=== PATIENT | male | born 1930 | race Caucasian/White ===

== ENCOUNTER → 2016-08-15 | Outpatient (CLI) | payer OTHER ==
[~2016-08-15] MED LIST: CEFD1CAP14 PO; CEFD300C2 PO; CHOL2000 PO; CIPR1TAB10 PO; DOCU100C31 PO; DUTA0.5C PO; FERR325T PO; GLIM1TAB2 PO; HYDR-3419 PO; HYDR-5688 PO; LPR25 PO; LRS10 PO; LVQ750 PO; MULT-506 PO; NRN600 PO; NUTR1LIQ PO; NXM/40 PO; POLY335019 PO; RANI150T2 PO; SENN-65 PO; SENN-91 PO; SIMV-151 PO; SULF800T23 PO; TRAM-10 PO; ZNTT/150 PO
--- NOTE | 2016-08-17 10:14 | DIAGNOSTIC IMAGING REPORT ---
LEFT HUMERUS MIN 2 VIEWS CLINICAL HISTORY: PROXIMAL LEFT HUMERUS FRACTURE COMPARISON STUDY: Left shoulder 05/09/2016. FINDINGS: There is again noted a displaced and impacted left humeral neck fracture. This demonstrates up to 9 mm of medial displacement. There is a small amount of bony bridging/callus formation consistent with partial healing. No acute fracture or dislocation within the left humerus. No dislocation. IMPRESSION: No change in alignment of the displaced and impacted left humeral neck fracture. There appears to be partial healing of the fracture. Electronically signed by: Jovon Bullard M.D. 08/17/2016 10:12 AM Dictated Date/Time: 08/15/2016 5:50 PM
== END | disposition home or self-care (01) ==
LOC: C.RDSM 11:00
PROVIDERS: ATTEND Physical Medicine & Rehabilitation Sports Medicine
DX: S42.232A 3-part fracture of surgical neck of left humerus, initial encounter for closed fracture (principal); X58.XXXA Exposure to other specified factors, initial encounter; Z87.81 Personal history of (healed) traumatic fracture

== ENCOUNTER 2016-10-25 18:53 | Emergency (ER) | payer OTHER ==
[~2016-10-25] VITALS: Ht 170.2 cm; Wt 39.0 kg
[~2016-10-25 18:53] MED LIST changes: -CEFD1CAP14 PO; -CEFD300C2 PO; -CHOL2000 PO; -CIPR1TAB10 PO; -DOCU100C31 PO; -DUTA0.5C PO; -HYDR-3419 PO; -LVQ750 PO; -POLY335019 PO; -SENN-65 PO; -SULF800T23 PO; -ZNTT/150 PO
[2016-10-25 18:57] VITALS: TEMP 36.7; Ht 170.2 cm; Wt 39.0 kg
[2016-10-25] MEDS ORDERED: SODIUM CHLORIDE 0.9% 1000ML 500 ML IV STA (21:01)
--- NOTE | 2016-10-25 21:09 | EMERGENCY ROOM VISIT NOTE ---
History Report prepared by Arron: Aydin Callejas Under the Supervision of: Dr. Diony Austin M.D. First contact with patient: 20:55 Chief Complaint: FEVER Stated Complaint: HEADACHE,FEVER,UPSET STOMACH,POSSIBLE UTI,NOAPPETE History of Present Illness The patient is a 85 year old male who presents to the Emergency Room with complaints of a persistent confusion beginning earlier today. Per the patient's aide, he has a history of UTIs in the past. He has intellectual disabilities at baseline. He has had a temperature of 99 today. Earlier, he was incoherent, forgetful, and unable to put together sentences. The patient has not had a cough , and has not recently hit his head or fallen. Source of History: caregiver Onset: earlier today Position: head Quality: other (confusion) Timing: other (persistent) Associated Symptoms: + fevers, No cough Review of Systems See HPI for pertinent positives & negatives. A total of 10 systems reviewed and were otherwise negative. 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,& CEREBRAL INFARCTION W/OUT RES DEFICITS (21) PNA (pneumonia) (22) Proteinuria (23) SBO (small bowel obstruction) (24) Sepsis (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 (26) Vitamin B12 deficiency (non anemic) (27) Vitamin D deficiency Family History Omitted due to advanced age Social History Smoking Status: Never Smoker Alcohol Use: none Drug Use: none Marital Status: single, other Occupation Status: disabled Current/Historical Medications Scheduled Cefdinir (Omnicef), 300 MG PO Q12H Cholecalciferol (Vitamin D3), 1 CAP PO DAILY Docusate Sodium (Docusate Sodium), 1 CAP PO BID Esomeprazole Magnesium (Nexium), 40 MG PO QAM Ferrous Sulfate (Ferrous Sulfate), 325 MG PO 2XWK Gabapentin (Gabapentin), 600 MG PO TID Glimepiride (Glimepiride), 1 MG PO QAM Metoprolol Tartrate (Lopressor), 25 MG PO BID Multivitamin (Multivitamin), 1 TAB PO DAILY Nutritional Supplements (Ensure High Protein), 8 OZ PO DAILY Polyethylene Glycol 3350 (Miralax), 17 GM PO DAILY Ranitidine HCl (Ranitidine HCl), 150 MG PO BID Sennosides-Docusate Sodium (Senna S), 1 TAB PO BID Simvastatin (Simvastatin), 20 MG PO QPM Scheduled PRN Baclofen (Baclofen), 10 MG PO BID PRN for Headache Glimepiride (Glimepiride), 1 TAB PO QAM PRN for BSG >200 Tramadol (Ultram), 50 MG PO BID PRN for Pain Allergies Coded Allergies: No Known Allergies (Verified , 10/25/16) Physical Exam Vital Signs Date Time Temp Pulse Resp B/P Pulse Ox O2 Delivery O2 Flow Rate FiO2 10/25/16 23:03 87 18 108/64 92 10/25/16 22:17 85 10/25/16 22:14 86 14 108/64 98 10/25/16 18:57 36.7 92 18 96/60 95 Room Air Physical Exam GENERAL: Patient is in no acute distress. HEENT: No acute trauma, normocephalic atraumatic, mucous membranes moist, no nasal congestion, no scleral icterus. NECK: No stridor, no adenopathy, no meningismus, trachea is midline. LUNGS: Clear to auscultation bilaterally, no wheeze, no rhonchi, breath sounds equal. HEART: Without murmurs gallops or rubs, regular rate and rhythm. ABDOMEN: Soft, nontender, bowel sounds positive, no hernias, no peritonitis. EXTREMITIES: No cyanosis or edema, full range of motion of all the joints without pain or difficulty. Scratches to the right leg. No signs of cellulitis. NEUROLOGIC: MR noted. Moving all extremities. Awake and alert. SKIN: No rash, no jaundice, no diaphoresis. Medical Decision & Procedures ER Provider Diagnostic Interpretation: Radiology results and stated below per my review and radiologist interpretation: HEAD CT NONCONTRAST Findings: The paranasal sinuses and mastoid air cells are clear. Study again is compromised due to the patient's ability to cooperate as well as patient's general condition. Considerable atrophy as well as an old left cerebral infarct. No acute intracranial hemorrhage. No midline shift. A considerable chronic small vessel change and scattered encephalomalacia throughout. All findings are considered chronic. Impression: Considerable chronic and pre-existing change. No acute process. No change from the prior study. Electronically signed by: Thiago Kramer M.D. 10/25/2016 9:47 PM Dictated Date/Time: 10/25/2016 9:45 PM CHEST ONE VIEW PORTABLE FINDINGS: Emphysematous change. Chronic lateral parenchymal fibrotic change. No acute infiltrate. Diaphragms smooth. Chronic scarring left lateral costophrenic angle. IMPRESSION: Chronic and emphysematous change. Chronic fibrosis. No acute process. Electronically signed by: Thiago Kramer M.D. 10/25/2016 9:24 PM Dictated Date/Time: 10/25/2016 9:23 PM Laboratory Results 10/25/16 20:40 Red Blood Count 4.31, Mean Corpuscular Volume 95.1, Mean Corpuscular Hemoglobin 31.1, Mean Corpuscular Hemoglobin Concent 32.7, Mean Platelet Volume 9.3, Neutrophils (%) (Auto) 56.8, Lymphocytes (%) (Auto) 29.8, Monocytes (%) (Auto) 11.0, Eosinophils (%) (Auto) 1.7, Basophils (%) (Auto) 0.5, Neutrophils # (Auto ) 3.42, Lymphocytes # (Auto) 1.79, Monocytes # (Auto) 0.66, Eosinophils # (Auto ) 0.10, Basophils # (Auto) 0.03 10/25/16 20:40 Test 10/25/16 00:00 10/25/16 20:40 Urine Color YELLOW Urine Appearance TURBID (CLEAR) Urine pH 5.0 (4.5-7.5) Urine Specific Soso 1.013 (1.000-1.030) Urine Protein 2+ (NEG) Urine Glucose (UA) NEG (NEG) Urine Ketones NEG (NEG) Urine Occult Blood 3+ (NEG) Urine Nitrite POS (NEG) Urine Bilirubin NEG (NEG) Urine Urobilinogen NEG (NEG) Urine Leukocyte Esterase LARGE (NEG) Urine WBC (Auto) >30 /hpf (0-5) Urine RBC (Auto) >30 /hpf (0-4) Urine Hyaline Casts (Auto) 1-5 /lpf (0-5) Urine Epithelial Cells (Auto) 5-10 /lpf (0-5) Urine Bacteria (Auto) 4+ (NEG) Urine Crystals CALCIUM OXALATE (NONE Urine Yeast (Auto) (NONE PRSENT) White Blood Count 6.01 K/uL (4.8-10.8) Red Blood Count 4.31 M/uL (4.7-6.1) Hemoglobin 13.4 g/dL (14.0-18.0) Hematocrit 41.0 % (42-52) Mean Corpuscular Volume 95.1 fL (80-100) Mean Corpuscular Hemoglobin 31.1 pg (25-34) Mean Corpuscular Hemoglobin Concent 32.7 g/dl (32-36) Platelet Count 191 K/uL (130-400) Mean Platelet Volume 9.3 fL (7.4-10.4) Neutrophils (%) (Auto) 56.8 % Lymphocytes (%) (Auto) 29.8 % Monocytes (%) (Auto) 11.0 % Eosinophils (%) (Auto) 1.7 % Basophils (%) (Auto) 0.5 % Neutrophils # (Auto) 3.42 K/uL (1.4-6.5) Lymphocytes # (Auto) 1.79 K/uL (1.2-3.4) Monocytes # (Auto) 0.66 K/uL (0.11-0.59) Eosinophils # (Auto) 0.10 K/uL (0-0.5) Basophils # (Auto) 0.03 K/uL (0-0.2) RDW Standard Deviation 48.1 fL (36.4-46.3) RDW Coefficient of Variation 13.8 % (11.5-14.5) Immature Granulocyte % (Auto) 0.2 % Immature Granulocyte # (Auto) 0.01 K/uL (0.00-0.02) Anion Gap 4.0 mmol/L (3-11) Est Creatinine Clear Calc Drug Dose 34.3 ml/min Estimated GFR () 91.2 Estimated GFR (Non- 78.7 BUN/Creatinine Ratio 33.0 (10-20) Calcium Level 9.4 mg/dl (8.5-10.1) Total Bilirubin 0.3 mg/dl (0.2-1) Aspartate Amino Transf (AST/SGOT) 25 U/L (15-37) Alanine Aminotransferase (ALT/SGPT) 27 U/L (12-78) Alkaline Phosphatase 75 U/L (45-117) Total Protein 7.0 gm/dl (6.4-8.2) Albumin 3.0 gm/dl (3.4-5.0) Globulin 4.0 gm/dl (2.5-4.0) Albumin/Globulin Ratio 0.8 (0.9-2) Laboratory results reviewed by me. Medications Administered Medications (Trade) Dose Ordered Sig/Kay Route Start Time Stop Time Status Last Admin Dose Admin Sodium Chloride (Nss 1000ml) 500 ml @ 999 mls/hr Q31M STAT IV 10/25/16 21:01 10/25/16 21:31 DC 10/25/16 21:12 999 MLS/HR Ceftriaxone Sodium (Rocephin Inj) 1 gm NOW STAT IV 10/25/16 22:21 10/25/16 22:22 DC 10/25/16 22:36 1 GM ED Course 2055: The patient was evaluated in room B11B. A complete history and physical exam was performed. 2100: Ordered NSS 500 ml @ 999 mls/hr IV. 2220: Ordered Rocephin Inj 1 gm IV. 2249: I updated the patient. 2304: Reevaluated the patient. Discussed results and discharge instructions: He verbalized understanding and agreement. The patient is ready for discharge. Medical Decision Differentials include UTI, intracranial bleeding or stroke, dehydration, anemia , electrolyte imbalance, pneumonia, and cellulitis. There is no leukocytosis or concerning anemia. No significant electrolyte abnormality, kidney failure or hepatitis. Urinalysis is suggestive of infection , urine culture and blood cultures are pending. Brain CT shows no acute bleed or mass effect. Chest x-ray does not show pneumonia or CHF. On exam, there was no cellulitis. The patient was not febrile or toxic. The patient was given IV saline, he received IV ceftriaxone. He is being discharged on Omnicef twice a day for 10 days, he can return here if worsening or not improving. He does appear to have a UTI as the cause for his symptoms. Impression Primary Impression: UTI (urinary tract infection) Scribe Attestation The scribe's documentation has been prepared under my direction and personally reviewed by me in its entirety. I confirm that the note above accurately reflects all work, treatment, procedures, and medical decision making performed by me. Departure Information Dispostion Home / Self-Care Prescriptions Cefdinir (OMNICEF) 300 Mg Cap 300 MG PO Q12H for 10 Days, #20 CAP Prov: Diony Austin M.D. 10/25/16 Referrals Monika Zabala, C.R.N.P. (PCP) Patient Instructions My [facility] Additional Instructions omnicef 2x per day for 10 days continue all other meds and care return for worsening symptoms or lack of improvement lab testing and imaging was all ok today
[2016-10-25 21:16] LABS: BASO % 0.5 %; BASO ABS # 0.03 K/uL (0-0.2); COMPLETE YES; EOS % 1.7 %; IG% 0.2 %; LYMPH % 29.8 %; LYMPH ABS # 1.79 K/uL (1.2-3.4); MEAN CELL VOLUME 95.1 fL (80-100); MEAN CORPUSCULAR HEMOGLOBIN 31.1 pg (25-34); MEAN CORPUSCULAR HGB CONC 32.7 g/dl (32-36); MEAN PLATELET VOLUME 9.3 fL (7.4-10.4); NEUT % 56.8 %; PLATELET COUNT 191 K/uL (130-400); RED BLOOD COUNT 4.31 M/uL (4.7-6.1); WHITE BLOOD COUNT 6.01 K/uL (4.8-10.8)
--- NOTE | 2016-10-25 21:25 | DIAGNOSTIC IMAGING REPORT ---
CHEST ONE VIEW PORTABLE CLINICAL HISTORY: EVALUATE ALTERED MENTAL STATUS/WEAKNESS dyspnea COMPARISON STUDY: 03/30/2016 FINDINGS: Emphysematous change. Chronic lateral parenchymal fibrotic change. No acute infiltrate. Diaphragms smooth. Chronic scarring left lateral costophrenic angle. IMPRESSION: Chronic and emphysematous change. Chronic fibrosis. No acute process. Electronically signed by: Thiago Kramer M.D. 10/25/2016 9:24 PM Dictated Date/Time: 10/25/2016 9:23 PM
[2016-10-25 21:47] LABS: CALCIUM 9.4 mg/dl (8.5-10.1); CREATININE 0.9 mg/dl (0.60-1.40); POTASSIUM 4.5 mmol/L (3.5-5.1)
--- NOTE | 2016-10-25 21:48 | DIAGNOSTIC IMAGING REPORT ---
HEAD CT NONCONTRAST CT DOSE: 614.27 mGy.cm HISTORY: Mental status change confusion TECHNIQUE: Multiaxial CT images of the head were performed without the use of intravenous contrast. Comparison: 03/27/2016 Findings: The paranasal sinuses and mastoid air cells are clear. Study again is compromised due to the patient's ability to cooperate as well as patient's general condition. Considerable atrophy as well as an old left cerebral infarct. No acute intracranial hemorrhage. No midline shift. A considerable chronic small vessel change and scattered encephalomalacia throughout. All findings are considered chronic. Impression: Considerable chronic and pre-existing change. No acute process. No change from the prior study. Electronically signed by: Thiago Kramer M.D. 10/25/2016 9:47 PM Dictated Date/Time: 10/25/2016 9:45 PM
[2016-10-25 21:50] LABS: ALB/GLOB RATIO 0.8 (0.9-2)
[2016-10-25] MEDS ORDERED: GLIM1TAB2 PO (21:52)
[2016-10-25] MEDS ORDERED: CHOL2000 PO (21:52)
[2016-10-25] MEDS ORDERED: POLY335019 PO (21:52)
[2016-10-25] MEDS ORDERED: DOCU100C31 PO (21:52)
[2016-10-25] MEDS ORDERED: TRAM-10 PO (21:52)
[2016-10-25 22:10] LABS: URINE APPEARANCE TURBID (CLEAR); URINE BILIRUBIN NEG (NEG); URINE COLOR YELLOW; URINE NITRITE POS (NEG); URINE SPECIFIC GRAVITY 1.013 (1.000-1.030); UROBILINOGEN NEG (NEG); ZZURINE CULT IF INDIC CATH YES
[2016-10-25 22:13] LABS: MANUAL MICROSCOPIC REQUIRED? NO; REVIEW REQ? YES
[2016-10-25] MEDS ORDERED: CEFTRIAXONE SOD INJ 1 GM ADDVIAL IV STA (22:21)
[2016-10-25] MEDS ORDERED: CEFD300C2 PO (22:54)
[2016-10-25 23:03] VITALS: BP 108/64; PULSE 87; O2SAT 92
[2016-10-27] MEDS ORDERED: CEFD1CAP14 PO (13:22)
[2016-10-27] MEDS ORDERED: DUTA0.5C PO (13:22)
[2016-10-27] MEDS ORDERED: CHOL2000 PO (13:22)
[2016-11-29] MEDS ORDERED: TRAM-10 PO (12:03)
[2016-11-29] MEDS ORDERED: LVQ750 PO (12:03)
[2017-01-15] MEDS ORDERED: CIPR1TAB10 PO (10:29)
[2017-01-18] MEDS ORDERED: HYDR-3419 PO (09:40)
== END 2016-10-25 22:58 | disposition home or self-care (01) ==
LOC: C.EDB 18:55
DX: N39.0 Urinary tract infection, site not specified (principal); F79 Unspecified intellectual disabilities; D64.9 Anemia, unspecified; I48.91 Unspecified atrial fibrillation; E11.43 Type 2 diabetes mellitus with diabetic autonomic (poly)neuropathy; E78.5 Hyperlipidemia, unspecified; I10 Essential (primary) hypertension; K21.9 Gastro-esophageal reflux disease without esophagitis; Z86.73 Personal history of transient ischemic attack (TIA), and cerebral infarction without residual deficits; Z87.01 Personal history of pneumonia (recurrent); E53.8 Deficiency of other specified B group vitamins; E55.9 Vitamin D deficiency, unspecified; Z79.899 Other long term (current) drug therapy

== ENCOUNTER → 2016-11-15 | Outpatient (CLI) | payer OTHER ==
[~2016-11-15] MED LIST changes: +CEFD1CAP14 PO; +CHOL2000 PO; +CIPR1TAB10 PO; +DUTA0.5C PO; +FERR1TAB62 PO; -FERR325T PO; +HYDR-3419 PO; -HYDR-5688 PO; +LVQ750 PO; +POLY335019 PO; -RANI150T2 PO; +SULF800T23 PO; +ZNTT/150 PO
[2016-11-15 13:15] LABS: BASO % 0.4 %; BASO ABS # 0.03 K/uL (0-0.2); COMPLETE YES; EOS % 2.6 %; HEMATOCRIT 44.5 % (42-52); IG% 0.1 %; LYMPH % 20.4 %; LYMPH ABS # 1.44 K/uL (1.2-3.4); MEAN CELL VOLUME 99.6 fL (80-100); MEAN CORPUSCULAR HEMOGLOBIN 30.9 pg (25-34); MEAN PLATELET VOLUME 9.3 fL (7.4-10.4); MONO % 9.1 %; NEUT % 67.4 %; PLATELET COUNT 186 K/uL (130-400); RED BLOOD COUNT 4.47 M/uL (4.7-6.1); WHITE BLOOD COUNT 7.05 K/uL (4.8-10.8)
[2016-11-15 14:57] LABS: BLOOD UREA NITROGEN 25 mg/dl (7-18); BUN/CREATININE RATIO 24.5 (10-20); CALCIUM 9.3 mg/dl (8.5-10.1); CARBON DIOXIDE 27 mmol/L (21-32); CHLORIDE 106 mmol/L (98-107); GLUCOSE 132 mg/dl (70-99); POTASSIUM 4.2 mmol/L (3.5-5.1); SODIUM 142 mmol/L (136-145)
== END | disposition home or self-care (01) ==
LOC: C.LAB 12:07
PROVIDERS: ATTEND Urology
DX: N40.1 Benign prostatic hyperplasia with lower urinary tract symptoms (principal)

== ENCOUNTER 2016-11-26 12:57 | Inpatient (IN) | payer OTHER ==
[~2016-11-26] VITALS: Ht 160 cm; Wt 39.0 kg
[~2016-11-26 12:57] MED LIST changes: -CIPR1TAB10 PO; -HYDR-3419 PO; -LVQ750 PO; -SULF800T23 PO; -ZNTT/150 PO
[2016-11-26] MEDS ORDERED: ZNTT/150 PO (13:23)
[2016-11-26] MEDS ORDERED: SULF800T23 PO (13:23)
[2016-11-26] MEDS ORDERED: SODIUM CHLORIDE 0.9% 1000ML 1,000 ML IV SCH (14:06)
--- NOTE | 2016-11-26 14:10 | EMERGENCY ROOM VISIT NOTE ---
History Report prepared by Arron: Aydin Callejas Under the Supervision of: Dr. Pau Olivarez D.O. First contact with patient: 13:50 Chief Complaint: CONFUSION Stated Complaint: ALTERED MENTAL STATUS Nursing Triage Summary: arrives via ems with caregiver, who states that this morning after pentecostalism he "wasn't acting right", seemed "really weak and was twitching and tremoring" pt. resides in a special needs home through [facility] and has baseline MR but usually walks with a cane and has normal "every day conversation" History of Present Illness The patient is a 86 year old male who presents to the Emergency Room with complaints of persistent confusion beginning about 2 hours ago. Per the patient' s caregiver, he was out [facility] after pentecostalism when he started to not make sense , was "acting off", began shaking, and seemed weak. He had been walking with a cane this morning, which is baseline, but later was unable to stand unassisted. The patient is a diabetic and his blood sugar was 170 in the ambulance. He developed a new cough this morning The patient has a catheter and frequently gets UTIs. He is currently on Bactrim for a UTI. She reports that his sticking his tongue out is normal, but he usually makes more eye contact at baseline compared to now. The patient does not keep up with his fluids and may be dehydrated. He consumes sugar products often, and normally eats without any problems. The patient denies any pain. Source of History: patient, caregiver Onset: about 2 hours ago Position: head Quality: other (confusion) Timing: other (persistent) Associated Symptoms: + cough, + weakness Review of Systems See HPI for pertinent positives & negatives. A total of 10 systems reviewed and were otherwise negative. Past Medical & Surgical Medical Problems: (1) ABDOM AORTIC ANEURYSM (2) Altered mental status (3) Anemia (4) ATRIAL FIBRILLATION (5) Benign hypertension (6) Bronchiectasis (7) Carotid artery stenosis (8) Degeneration of cervical intervertebral disc (9) DIAB W NEURO MANIFEST, TYPE II OR UNSPEC TYPE, NOT UNCNTRLD (10) Diabetic peripheral neuropathy (11) Dyslipidemia (12) Dysphagia (13) FX C2 VERTEBRA-CLOSED (14) FX C5 VERTEBRA-CLOSED (15) FX C6 VERTEBRA-CLOSED (16) Gastroesophageal reflux disease (17) Helicobacter pylori gastrointestinal tract infection (18) Influenza A (19) Inguinal hernia (20) Peptic ulcer (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,& CEREBRAL INFARCTION W/OUT RES DEFICITS (22) PNA (pneumonia) (23) Proteinuria (24) SBO (small bowel obstruction) (25) Sepsis (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 (27) Vitamin B12 deficiency (non anemic) (28) Vitamin D deficiency Family History Omitted due to advanced age Social History Smoking Status: Never Smoker Alcohol Use: none Drug Use: none Marital Status: single, other Occupation Status: disabled Current/Historical Medications Scheduled Cholecalciferol (Vitamin D3), 1 CAP PO DAILY Esomeprazole Magnesium (Nexium), 40 MG PO QAM Gabapentin (Gabapentin), 600 MG PO TID Glimepiride (Glimepiride), 1 MG PO QAM Metoprolol Tartrate (Lopressor), 25 MG PO BID Multivitamin (Multivitamin), 1 TAB PO QAM Nutritional Supplements (Ensure High Protein), 8 OZ PO DAILY Polyethylene Glycol 3350 (Miralax), 17 GM PO QAM Ranitidine (Zantac), 150 MG PO BID Sennosides-Docusate Sodium (Senna S), 1 TAB PO BID Simvastatin (Simvastatin), 20 MG PO QPM Sulfa/Trimethoprim (Bactrim Ds 800MG/160MG), 1 TAB PO BID Scheduled PRN Baclofen (Baclofen), 10 MG PO BID PRN for Headache Glimepiride (Glimepiride), 1 TAB PO QAM PRN for BSG >200 Tramadol (Ultram), 50 MG PO BID PRN for Pain Allergies Coded Allergies: No Known Allergies (Verified , 11/26/16) Physical Exam Vital Signs Date Time Temp Pulse Resp B/P Pulse Ox O2 Delivery O2 Flow Rate FiO2 11/26/16 17:03 97 16 115/53 94 Room Air 11/26/16 15:24 85 16 118/58 93 Room Air 11/26/16 14:53 87 103/59 90 Room Air 11/26/16 14:36 91 Room Air 11/26/16 14:07 88 11/26/16 13:24 94 Room Air 11/26/16 13:06 37.0 86 14 125/60 90 Room Air Physical Exam General: Patient was asleep, difficult to wake, and confused upon waking. He has a wet cough, and strong odor of foul smelling urine. HEENT: Head - normocephalic and atraumatic. Pupils are equal, round, and reactive to light. Extraocular eye muscles are intact and sclera are anicteric. Ears - bilaterally patent canals with noninjected tympanic membranes and no evidence of hemotympanum. Nose - moist nasal mucosa without discharge. Mouth - moist buccal mucosa. Oropharynx is nonerythematous and there is no tonsillar exudate or edema noted. Neck: Significant curvature to the neck and upper back. Supple; no JVD, nuchal rigidity, cervical lymphadenopathy, or auscultated bruits. Heart: Regular rate and rhythm. There is a normal S1 and S2 with no murmurs, clicks, or gallops appreciated. Lungs: Diminished breath sounds in both lung bases. Abdomen: Soft, completely nontender, nondistended, with good bowel sounds. There are no palpable pulsatile masses or hepatosplenomegaly. There is no guarding, rigidity, or rebound noted. Extremities: No evidence of cyanosis, clubbing, or edema. There are easily palpable peripheral pulses. Neuro:The patient is awake and alert, but disoriented to place and time. Muscle strength is 5/5 in all 4 extremities. The patient has equal inside sales advertising executive strength and equal pedal push and pull. There are no cerebellar signs. Medical Decision & Procedures ER Provider Diagnostic Interpretation: Radiology results as stated below per my review and the radiologist's interpretation: CT OF THE HEAD WITHOUT CONTRAST FINDINGS: Evaluation is suboptimal due to difficulty with positioning. Encephalomalacia within the left frontoparietal region is unchanged. Ventricular system is stable. Basilar cisterns are patent. There are no extra axial collections. Scattered white matter hypodensities are unchanged. There are no CT findings to suggest acute dural sinus thrombosis or acute territorial infarct. Note is made of an indeterminate defect with lucency of the left parietal bone. This was described on exam of March 27, 2016. IMPRESSION: 1. Technically limited exam due to difficulty with positioning. 2. No acute intracranial findings. No significant change since prior exam. 3. Redemonstration of the indeterminate left parietal lucent/lytic lesion with apparent scalp defect. Electronically signed by: Navarro Curry M.D. 11/26/2016 3:20 PM Dictated Date/Time: 11/26/2016 3:12 PM CHEST ONE VIEW PORTABLE FINDINGS: Deformity of the proximal left humerus is identified. Cardiomediastinal silhouette is stable. Left lung volume loss is again noted. There is no pneumothorax or pleural effusion. Interstitial thickening is unchanged and likely chronic. Left basilar opacity has developed. IMPRESSION: 1. Interval development of left basilar opacity which could reflect pneumonia or atelectasis. Radiographic follow up is recommended. 2. Otherwise, unchanged appearance of the chest with chronic interstitial thickening. Electronically signed by: Navarro Curry M.D. 11/26/2016 2:42 PM Dictated Date/Time: 11/26/2016 2:39 PM Laboratory Results 11/26/16 14:41 Test 11/26/16 14:41 11/26/16 14:51 11/26/16 16:35 Immature Granulocyte % (Auto) 0.2 % White Blood Count 13.34 K/uL (4.8-10.8) Red Blood Count 4.21 M/uL (4.7-6.1) Hemoglobin 13.6 g/dL (14.0-18.0) Hematocrit 40.9 % (42-52) Mean Corpuscular Volume 97.1 fL (80-100) Mean Corpuscular Hemoglobin 32.3 pg (25-34) Mean Corpuscular Hemoglobin Concent 33.3 g/dl (32-36) Platelet Count 156 K/uL (130-400) Mean Platelet Volume 9.4 fL (7.4-10.4) Neutrophils (%) (Auto) 84.4 % Lymphocytes (%) (Auto) 4.6 % Monocytes (%) (Auto) 10.6 % Eosinophils (%) (Auto) 0.1 % Basophils (%) (Auto) 0.1 % Neutrophils # (Auto) 11.27 K/uL (1.4-6.5) Lymphocytes # (Auto) 0.61 K/uL (1.2-3.4) Monocytes # (Auto) 1.41 K/uL (0.11-0.59) Eosinophils # (Auto) 0.01 K/uL (0-0.5) Basophils # (Auto) 0.01 K/uL (0-0.2) Immature Granulocyte # (Auto) 0.03 K/uL (0.00-0.02) Prothrombin Time 10.2 SECONDS (9.0-12.0) Prothromb Time International Ratio 1.0 (0.9-1.1) Activated Partial Thromboplast Time 24.6 SECONDS (21.0-31.0) Partial Thromboplastin Ratio 0.9 Anion Gap 7.0 mmol/L (3-11) Est Creatinine Clear Calc Drug Dose 23.3 ml/min Estimated GFR () 58.1 Estimated GFR (Non- 50.1 BUN/Creatinine Ratio 23.3 (10-20) Calcium Level 9.1 mg/dl (8.5-10.1) Total Creatine Kinase 61 U/L (39-308) Creatine Kinase MB 0.9 ng/ml (0.5-3.6) Creatine Kinase MB Ratio 1.5 (0-3.0) Troponin I < 0.015 ng/ml (0-0.045) Bedside Prothrombin Time INR 1.0 (0.9-1.1) Urine Color DK YELLOW Urine Appearance TURBID (CLEAR) Urine pH 5.5 (4.5-7.5) Urine Specific [place] 1.019 (1.000-1.030) Urine Protein 2+ (NEG) Urine Glucose (UA) NEG (NEG) Urine Ketones NEG (NEG) Urine Occult Blood 2+ (NEG) Urine Nitrite POS (NEG) Urine Bilirubin NEG (NEG) Urine Urobilinogen NEG (NEG) Urine Leukocyte Esterase LARGE (NEG) Urine WBC (Auto) >30 /hpf (0-5) Urine RBC (Auto) 10-30 /hpf (0-4) Urine Hyaline Casts (Auto) 1-5 /lpf (0-5) Urine Epithelial Cells (Auto) 10-20 /lpf (0-5) Urine Bacteria (Auto) NEG (NEG) Urine Crystals TRIPLE PHOSPHATE Urine Yeast (Auto) BUDDING (NONE PRSENT) Laboratory results per my review. Medications Administered Medications (Trade) Dose Ordered Sig/Kay Route Start Time Stop Time Status Last Admin Dose Admin Sodium Chloride 1,000 ml @ 50 mls/hr Q20H IV 11/26/16 14:06 11/26/16 18:42 DC 11/26/16 14:06 50 MLS/HR Sodium Chloride (Nss 1000ml) 1,000 ml @ 250 mls/hr Q4H STAT IV 11/26/16 15:23 11/26/16 18:42 DC 4/30/17 15:32 250 MLS/HR Levofloxacin (Levaquin / D5W) 750 mg NOW ONCE IV 11/26/16 15:45 11/26/16 15:46 DC 11/26/16 15:48 750 MG Gabapentin (Neurontin Tab) 600 mg NOW STAT PO 11/26/16 15:45 11/26/16 15:46 DC 11/26/16 16:06 600 MG Procedure Medications Ordered: 1406: Ordered NSS 1,000 ml @ 50 mls/hr IV. 1523: Ordered NSS 1,000 ml @ 50 mls/hr IV. IV Levaquin Oral gabapentin ECG Indication: other (confusion) Rate (beats per minute): 86 Rhythm: normal sinus Findings: no acute ischemic change, no ectopy ED Course 1400: Past medical records reviewed. The patient was evaluated in room C2B. A complete history and physical exam was performed. An IV lock was initiated and labs were drawn as above. A twelve-lead EKG was obtained as described above. The patient had a CT scan of the brain. He will go for a chest x-ray. 1406: Ordered NSS bolus and drip. I ordered the patient's daily gabapentin as he had missed his dose. 1525: I reassessed the patient. He seems slightly more awake. We will start him on IV Levaquin for the new left-sided pneumonia. The caregiver does not feel comfortable to take him back to the [facility] because of his inability to ambulate. 1530: Discussed the patient's case with Dr. Engilsh. The patient will be evaluated for further management. The urine specimen was finally obtained from the cath and sent for urinalysis and culture. Medical Decision The patient is a 86 year old male who presents to the Emergency Room with complaints of persistent confusion beginning about 2 hours ago. Differential Diagnoses: Acute stroke, hypoglycemia, UTI, sepsis, pneumonia, and hypoxia. Laboratory Interpretations: WBC is 13.3; hemoglobin is 13.6; 84% neutrophils; BUN is 30; creatinine is 1.3; glucose is 68; negative cardiac enzymes; normal coags. On physical exam, the patient was slowly disoriented. He did seem to have significant wet cough. There was a significant odor of strong smelling urine. Chest x-ray revealed evidence of a left-sided pneumonia and urinalysis reveals a urinary tract infection despite the patient being on Bactrim. The urine will be sent for culture. The patient was started on IV Levaquin. I discussed the case with the [facility] hospitalist and they will evaluate for further management. Consults Time Called: 1524 Consulting Physician: [place], [facility] [place] Call: [phone] Discussed the patient's case with Dr. English. The patient will be evaluated for further management. Impression Primary Impression: Pneumonia involving left lung Additional Impression: Dehydration Scribe Attestation The scribe's documentation has been prepared under my direction and personally reviewed by me in its entirety. I confirm that the note above accurately reflects all work, treatment, procedures, and medical decision making performed by me. Departure Information Dispostion Being Evaluated By Hospitalist Referrals Monika Zabala, C.R.N.P. (PCP) Patient Instructions My [facility] Problem Qualifiers
--- NOTE | 2016-11-26 14:43 | DIAGNOSTIC IMAGING REPORT ---
CHEST ONE VIEW PORTABLE CLINICAL HISTORY: Stroke. COMPARISON STUDY: Chest radiograph October 25, 2016. FINDINGS: Deformity of the proximal left humerus is identified. Cardiomediastinal silhouette is stable. Left lung volume loss is again noted. There is no pneumothorax or pleural effusion. Interstitial thickening is unchanged and likely chronic. Left basilar opacity has developed. IMPRESSION: 1. Interval development of left basilar opacity which could reflect pneumonia or atelectasis. Radiographic follow up is recommended. 2. Otherwise, unchanged appearance of the chest with chronic interstitial thickening. Electronically signed by: Navarro Curry M.D. 11/26/2016 2:42 PM Dictated Date/Time: 11/26/2016 2:39 PM
[2016-11-26 15:02] LABS: BASO % 0.1 %; BASO ABS # 0.01 K/uL (0-0.2); COMPLETE YES; EOS % 0.1 %; HEMATOCRIT 40.9 % (42-52); IG% 0.2 %; LYMPH % 4.6 %; LYMPH ABS # 0.61 K/uL (1.2-3.4); MEAN CELL VOLUME 97.1 fL (80-100); MEAN CORPUSCULAR HEMOGLOBIN 32.3 pg (25-34); MEAN CORPUSCULAR HGB CONC 33.3 g/dl (32-36); MEAN PLATELET VOLUME 9.4 fL (7.4-10.4); MONO % 10.6 %; NEUT % 84.4 %; PLATELET COUNT 156 K/uL (130-400); RED BLOOD COUNT 4.21 M/uL (4.7-6.1); WHITE BLOOD COUNT 13.34 K/uL (4.8-10.8)
[2016-11-26 15:10] LABS: PARTIAL THROMBOPLASTIN RATIO 0.9; PROTHROMBIN TIME (PATIENT) 10.2 SECONDS (9.0-12.0)
[2016-11-26 15:19] LABS: BLOOD UREA NITROGEN 30 mg/dl (7-18); BUN/CREATININE RATIO 23.3 (10-20); CALCIUM 9.1 mg/dl (8.5-10.1); CARBON DIOXIDE 29 mmol/L (21-32); CHLORIDE 103 mmol/L (98-107); GLUCOSE 68 mg/dl (70-99); POTASSIUM 4.9 mmol/L (3.5-5.1); SODIUM 139 mmol/L (136-145)
--- NOTE | 2016-11-26 15:21 | DIAGNOSTIC IMAGING REPORT ---
CT OF THE HEAD WITHOUT CONTRAST CLINICAL HISTORY: Confusion, weakness and tremors. Evaluate for stroke. COMPARISON STUDY: Head CT October 25, 2016. CT DOSE: 614.27 mGy.cm TECHNIQUE: Helical axial images of the head were obtained without IV contrast. Automated exposure control was utilized for the study. FINDINGS: Evaluation is suboptimal due to difficulty with positioning. Encephalomalacia within the left frontoparietal region is unchanged. Ventricular system is stable. Basilar cisterns are patent. There are no extra axial collections. Scattered white matter hypodensities are unchanged. There are no CT findings to suggest acute dural sinus thrombosis or acute territorial infarct. Note is made of an indeterminate defect with lucency of the left parietal bone. This was described on exam of March 27, 2016. IMPRESSION: 1. Technically limited exam due to difficulty with positioning. 2. No acute intracranial findings. No significant change since prior exam. 3. Redemonstration of the indeterminate left parietal lucent/lytic lesion with apparent scalp defect. Electronically signed by: Navarro Curry M.D. 11/26/2016 3:20 PM Dictated Date/Time: 11/26/2016 3:12 PM
[2016-11-26 15:23] LABS: CKMB/CK RATIO 1.5 (0-3.0)
[2016-11-26] MEDS ORDERED: SODIUM CHLORIDE 0.9% 1000ML 1,000 ML IV STA (15:23)
[2016-11-26] MEDS ORDERED: LEVAQUIN 750MG / 150ML D5W IV ONE (15:45)
[2016-11-26] MEDS ORDERED: GABAPENTIN 600 MG TAB PO STA (15:45)
[2016-11-26 17:08] LABS: URINE APPEARANCE TURBID (CLEAR); URINE BILIRUBIN NEG (NEG); URINE COLOR DK YELLOW; URINE NITRITE POS (NEG); URINE PH 5.5 (4.5-7.5); URINE SPECIFIC GRAVITY 1.019 (1.000-1.030); UROBILINOGEN NEG (NEG); ZZURINE CULT IF INDIC CATH YES
[2016-11-26 17:11] LABS: MANUAL MICROSCOPIC REQUIRED? NO; REVIEW REQ? YES
[2016-11-26] MEDS ORDERED: GLUCAGON FOR INJ 1 MG VIAL SQ PRN (17:45)
[2016-11-26] MEDS ORDERED: LEVOFLOXACIN / D5W 500 MG in PREMIXED IN D5W 100 ML IV SCH (17:45)
[2016-11-26] MEDS ORDERED: GLUCOSE 40% GEL 15 GM TUBE PO PRN (17:45)
[2016-11-26] MEDS ORDERED: DEXTROSE 50% 50 ML SYR IV PRN (17:45)
[2016-11-26] MEDS ORDERED: ACETAMINOPHEN 325 MG TAB PO PRN (17:45)
[2016-11-26] MEDS ORDERED: BACLOFEN 10 MG TAB PO PRN (17:45)
[2016-11-26] MEDS ORDERED: MAGNESIUM HYDROXIDE SUSP 30 ML UDC PO PRN (17:45)
[2016-11-26] MEDS ORDERED: TRAMADOL HCL 50 MG TAB PO PRN (17:45)
[2016-11-26] MEDS ORDERED: ONDANSETRON INJ 2 MG/ML 2 ML VIAL IV PRN (17:45)
[2016-11-26] MEDS ORDERED: GLUCOSE 10 TABS/TUBE PO PRN (17:45)
[2016-11-26] MEDS ORDERED: GLIMEPIRIDE 2 MG TAB PO PRN (17:45)
--- NOTE | 2016-11-26 18:01 | History and Physical ---
History & Physical Date & Time of Service: Nov 26, 2016 at 17:45 Chief Complaint: Altered Mental Status Primary Care Physician: Monika Zabala, C.R.N.PDariusz History of Present Illness Source: patient, caregiver 86 y/o M who was brought here by his caregiver for AMS and weakness. Pt has some sort of MR, but lives fairly independently at the [facility]. Caregiver present in the ED has been taking care of pt since July, but had been off for the last 3 days. She states that there was no report from yesterday's caregiver of any sort of AMS or weakness at that time. She states she was getting pt ready for [facility] and he seemed weaker and with AMS. He usually ambulates with a cane, but he was unable to do so at all. She was initially going to bring pt here in her own car, but could not manage him well enough as he was so weak so she had to call EMS. His baseline mentation is quite conversant although he may pause a bit for words. He is usually A&O x3. He has dysphagia listed on his dx list, however the unclaimed property manager states she is uncertain as to what that is regarding and he eats a regular diet without restrictions. Pt currently states he feels fine. No SOB. Pt denies fever, chest pain, abd pain, n/v/c/d, LE pain or swelling. ROS as noted above, otherwise neg. Pt currently has a catheter in place due to severe BPH. He was to have a TURP tomorrow with Dr. Barnard. Past Medical/Surgical History Medical Problems: (1) ABDOM AORTIC ANEURYSM Status: Chronic (2) Anemia Status: Chronic (3) ATRIAL FIBRILLATION Status: Chronic (4) Benign hypertension Status: Chronic (5) Bronchiectasis Status: Chronic (6) Carotid artery stenosis Status: Chronic (7) Degeneration of cervical intervertebral disc Status: Chronic (8) DIAB W NEURO MANIFEST, TYPE II OR UNSPEC TYPE, NOT UNCNTRLD Status: Chronic (9) Diabetic peripheral neuropathy Status: Chronic (10) Dyslipidemia Status: Chronic (11) Dysphagia Status: Chronic (12) FX C2 VERTEBRA-CLOSED Status: Resolved (13) FX C5 VERTEBRA-CLOSED Status: Resolved (14) FX C6 VERTEBRA-CLOSED Status: Resolved (15) Gastroesophageal reflux disease Status: Chronic (16) Helicobacter pylori gastrointestinal tract infection Status: Chronic (17) Influenza A Status: Resolved (18) Inguinal hernia Status: Chronic (19) Peptic ulcer Status: Chronic (20) PERSONAL HX OF TIA,& CEREBRAL INFARCTION W/OUT RES DEFICITS Status: Resolved (21) Proteinuria Status: Chronic (22) SBO (small bowel obstruction) Status: Resolved (23) Sepsis Status: Resolved (24) Spasmodic torticollis Status: Chronic (25) Vitamin B12 deficiency (non anemic) Status: Chronic (26) Vitamin D deficiency Status: Chronic Urinary catheter in place on admission for severe BPH MR Family History Family history was reviewed; no changes noted. Social History Smoking Status: Never Smoker Alcohol Use: none Drug Use: none Marital Status: single, other Housing status: assisted living Occupational Status: disabled Immunizations History of Influenza Vaccine: Yes Influenza Vaccine Date: Jun 03, 2012 History of Tetanus Vaccine?: Unknown History of Pneumococcal: Yes History of Hepatitis B Vaccine: Unknown Multi-Drug Resistant Organisms History of MDRO: No Allergies Coded Allergies: No Known Allergies (Verified , 11/26/16) Home Medications Scheduled Cholecalciferol (Vitamin D3), 1 CAP PO DAILY Esomeprazole Magnesium (Nexium), 40 MG PO QAM Gabapentin (Gabapentin), 600 MG PO TID Glimepiride (Glimepiride), 1 MG PO QAM Metoprolol Tartrate (Lopressor), 25 MG PO BID Multivitamin (Multivitamin), 1 TAB PO QAM Nutritional Supplements (Ensure High Protein), 8 OZ PO DAILY Polyethylene Glycol 3350 (Miralax), 17 GM PO QAM Ranitidine (Zantac), 150 MG PO BID Sennosides-Docusate Sodium (Senna S), 1 TAB PO BID Simvastatin (Simvastatin), 20 MG PO QPM Sulfa/Trimethoprim (Bactrim Ds 800MG/160MG), 1 TAB PO BID Scheduled PRN Baclofen (Baclofen), 10 MG PO BID PRN for Headache Glimepiride (Glimepiride), 1 TAB PO QAM PRN for BSG >200 Tramadol (Ultram), 50 MG PO BID PRN for Pain Physical Exam Vital Signs Date Time Temp Pulse Resp B/P Pulse Ox O2 Delivery O2 Flow Rate FiO2 11/26/16 17:03 97 16 115/53 94 Room Air 11/26/16 15:24 85 16 118/58 93 Room Air 11/26/16 14:53 87 103/59 90 Room Air 11/26/16 14:36 91 Room Air 11/26/16 14:07 88 11/26/16 13:24 94 Room Air 11/26/16 13:06 37.0 86 14 125/60 90 Room Air General Appearance: no apparent distress, + thin Head: normocephalic, atraumatic Respiratory/Chest: normal breath sounds, no respiratory distress Cardiovascular: no edema, + tachycardia Abdomen/GI: non tender, soft Neurologic/Psych: alert (to person, does not know where he is, answers October 24 or 2012 ), + pertinent finding (Follows all basic commands, speech is somewhat garbled but does answer questions) Skin: normal color, warm/dry Diagnostics Laboratory Results Results Past 24 Hours Test 11/26/16 14:41 11/26/16 14:44 11/26/16 14:51 11/26/16 16:35 Range/Units White Blood Count 13.34 4.8-10.8 K/uL Red Blood Count 4.21 4.7-6.1 M/uL Hemoglobin 13.6 14.0-18.0 g/dL Hematocrit 40.9 42-52 % Mean Corpuscular Volume 97.1 80-100 fL Mean Corpuscular Hemoglobin 32.3 25-34 pg Mean Corpuscular Hemoglobin Concent 33.3 32-36 g/dl Platelet Count 156 130-400 K/uL Mean Platelet Volume 9.4 7.4-10.4 fL Neutrophils (%) (Auto) 84.4 % Lymphocytes (%) (Auto) 4.6 % Monocytes (%) (Auto) 10.6 % Eosinophils (%) (Auto) 0.1 % Basophils (%) (Auto) 0.1 % Neutrophils # (Auto) 11.27 1.4-6.5 K/uL Lymphocytes # (Auto) 0.61 1.2-3.4 K/uL Monocytes # (Auto) 1.41 0.11-0.59 K/uL Eosinophils # (Auto) 0.01 0-0.5 K/uL Basophils # (Auto) 0.01 0-0.2 K/uL RDW Standard Deviation 48.0 36.4-46.3 fL RDW Coefficient of Variation 13.5 11.5-14.5 % Immature Granulocyte % (Auto) 0.2 % Immature Granulocyte # (Auto) 0.03 0.00-0.02 K/uL Prothrombin Time 10.2 9.0-12.0 SECONDS Prothromb Time International Ratio 1.0 0.9-1.1 Activated Partial Thromboplast Time 24.6 21.0-31.0 SECONDS Partial Thromboplastin Ratio 0.9 Sodium Level 139 136-145 mmol/L Potassium Level 4.9 3.5-5.1 mmol/L Chloride Level 103 98-107 mmol/L Carbon Dioxide Level 29 21-32 mmol/L Anion Gap 7.0 3-11 mmol/L Blood Urea Nitrogen 30 7-18 mg/dl Creatinine 1.30 0.60-1.40 mg/dl Est Creatinine Clear Calc Drug Dose 23.3 ml/min Estimated GFR () 58.1 Estimated GFR (Non- 50.1 BUN/Creatinine Ratio 23.3 10-20 Random Glucose 68 70-99 mg/dl Calcium Level 9.1 8.5-10.1 mg/dl Total Creatine Kinase 61 39-308 U/L Creatine Kinase MB 0.9 0.5-3.6 ng/ml Creatine Kinase MB Ratio 1.5 0-3.0 Troponin I < 0.015 0-0.045 ng/ml Bedside Glucose 74 70-99 mg/dl Bedside Prothrombin Time INR 1.0 0.9-1.1 Urine Color DK YELLOW Urine Appearance TURBID CLEAR Urine pH 5.5 4.5-7.5 Urine Specific [place] 1.019 1.000-1.030 Urine Protein 2+ NEG Urine Glucose (UA) NEG NEG Urine Ketones NEG NEG Urine Occult Blood 2+ NEG Urine Nitrite POS NEG Urine Bilirubin NEG NEG Urine Urobilinogen NEG NEG Urine Leukocyte Esterase LARGE NEG Urine WBC (Auto) >30 0-5 /hpf Urine Hyaline Casts (Auto) 1-5 0-5 /lpf Urine Epithelial Cells (Auto) 10-20 0-5 /lpf Urine Bacteria (Auto) NEG NEG Urine Crystals TRIPLE PHOSPHATE NONE PRSENT Urine Yeast (Auto) BUDDING NONE PRSENT Microbiology Results 11/26/16 Blood Culture, Received Pending 11/26/16 Blood Culture, Received Pending 11/26/16 Urine Culture, Received Pending Diagnostic Radiology CXR with L basilar PNA CT head neg for acute Impression Assessment and Plan 86 y/o M who was admitted on 11/26 with AMS AMS: Likely metabolic encephalopathy related to PNA and possible UTI CXR noted Elevated WBC, afebrile Levaquin started in the ED prior to blood cx being drawn, cx pending UA pending CT head neg for acute Trop neg BPH: has had deras in and was on proph bactrim UA pending Pt was for TURP tomorrow with Dr. Barnard, this will need rescheduled given infectious status DM: continue home meds SSI PRN HTN: continue home meds Other: Caregiver is uncertain of code status. I informed her that pt will be a full code until we are informed otherwise. Brother is POA Lovenox for DVT proph DM diet CM c/s for transition back to [facility] on d/c Of note, I did mention to caregiver than all of pt's caregivers should have paperwork regarding and should personally be aware of pt's code status in the event of finding pt unresponsive or otherwise in need of care in an effort to have appropriate measures done if this is requested or to not put pt through these measures if POA does not wish for them. This should be addressed with [facility] facility also. Level of Care Med/Surg Advanced Directives Existing Power of Library Technical Assistant: Yes (brother) Resuscitation Status FULL RESUSCITATION VTE Prophylaxis VTE Risk Assessment Done? Y/N: Yes Risk Level: Low
[2016-11-26 18:15] VITALS: O2SAT 94; BMI 15.2
[2016-11-26] MEDS ORDERED: LEVOFLOXACIN CONSULT ACTIVE PRN (19:00)
[2016-11-26 20:00] VITALS: O2SAT 94
[2016-11-26] MEDS ORDERED: SULFAMETHOXAZOLE/TRIMETHOPRIM DS 800/160MG TAB PO SCH (20:00)
[2016-11-26] MEDS ORDERED: PNEUMOCOCCAL ADMINISTRATION CHARGE ONE (20:45)
[2016-11-26] MEDS ORDERED: PNEUMOCOCCAL POLYSACCHARIDES 25 MCG/0.5 ML VIAL/SYR IM. ONE (20:45)
[2016-11-26] MEDS: SODIUM CHLORIDE 0.9% 1000ML 1,000 ML IV SCH (21:22)
[2016-11-26] MEDS: GABAPENTIN 600 MG TAB PO SCH (21:24)
[2016-11-26] MEDS: METOPROLOL TARTRATE 25 MG TAB PO SCH (21:25)
[2016-11-26] MEDS: RANITIDINE HCL 150 MG TAB PO SCH (21:25)
[2016-11-26] MEDS: SIMVASTATIN 20 MG TAB PO SCH (21:26)
[2016-11-26] MEDS: DOCUSATE SODIUM/SENNA 50/8.6MG TAB PO SCH (21:26)
[2016-11-26] MEDS: INSULIN ASPART 100 UNITS/ML 3 ML PEN SC SCH (21:49)
[2016-11-26 23:30] VITALS: BP 89/54; PULSE 77; TEMP 36.9; O2SAT 95
[2016-11-27] VITALS: O2SAT 94
[2016-11-27 05:47] LABS: HEMATOCRIT 37.2 % (42-52); MEAN CELL VOLUME 97.1 fL (80-100); MEAN CORPUSCULAR HEMOGLOBIN 31.3 pg (25-34); MEAN CORPUSCULAR HGB CONC 32.3 g/dl (32-36); MEAN PLATELET VOLUME 9.4 fL (7.4-10.4); PLATELET COUNT 144 K/uL (130-400); RED BLOOD COUNT 3.83 M/uL (4.7-6.1); WHITE BLOOD COUNT 11.97 K/uL (4.8-10.8)
[2016-11-27 06:37] LABS: ESTIMATED AVERAGE GLUCOSE 128 mg/dl; HA1C FLAG Normal (Normal)
[2016-11-27] MEDS: SODIUM CHLORIDE 0.9% 1000ML 1,000 ML IV SCH (06:44)
[2016-11-27 07:29] VITALS: BP 99/65; PULSE 90; TEMP 36.6; O2SAT 95
[2016-11-27] MEDS: PANTOprazole SOD 40 MG TAB PO SCH (07:51)
[2016-11-27] MEDS: CHOLECALCIFEROL 1000 INTER.UNIT TAB PO SCH (07:52)
[2016-11-27] MEDS: RANITIDINE HCL 150 MG TAB PO SCH ×2 (07:52→20:46)
[2016-11-27] MEDS: GLIMEPIRIDE 2 MG TAB PO SCH (07:53)
[2016-11-27] MEDS: METOPROLOL TARTRATE 25 MG TAB PO SCH ×2 (07:53→20:45)
[2016-11-27] MEDS: GABAPENTIN 600 MG TAB PO SCH ×3 (07:54→20:46)
[2016-11-27] MEDS: DOCUSATE SODIUM/SENNA 50/8.6MG TAB PO SCH ×2 (07:54→20:46)
[2016-11-27] MEDS: MULTIVITAMIN TAB PO SCH (07:54)
[2016-11-27] MEDS: POLYETHYLENE (MIRALAX) 17 GM PACK PO SCH (07:55)
[2016-11-27] MEDS ORDERED: ENOXAPARIN 30 MG/0.3 ML SYR SQ SCH (08:00)
[2016-11-27 08:30] VITALS: O2SAT 95
[2016-11-27] MEDS: INSULIN ASPART 100 UNITS/ML 3 ML PEN SC SCH ×4 (08:48→20:49)
[2016-11-27] MEDS ORDERED: PROPOFOL IV EMULSION 10 MG/ML 20 ML VIAL IV ONE (09:17)
--- NOTE | 2016-11-27 10:04 | Clinical Documentation Query ---
CLINICAL DOCUMENTATION QUERY 86 year old male who presents to the Emergency Room with complaints of persistent confusion. Workup thus far has revealed pneumonia and UTI. Patient is noted to have a chronic indwelling Wakefield catheter and is also noted to get frequent UTI's. Query #1/2 In your clinical opinion is this patient being managed for: ( XX) UTI due to chronic indwelling Wakefield catheter treated with IVF's and IV Levolfoxacin. ( ) Other explanation of clinical findings (Please Explain) ( ) Unable to determine (Please Define) ( ) Need to Discuss ( ) Not Agree The medical record reflects the following clinical findings, treatment, and risk factors. Clinical Indicators: As above. WBC's 13.34, UC with yeast and large leukocyte esterase. Bacteria are not present but patient is on Bactrim at home. Treatment: IVF's with boluses, IV Levofloxacin, UC, BCx2, Risk Factors: Age, Chronic indwelling Wakefield, BPH, hx of UTI's Query #2/2 In your clinical opinion is this patient being managed for: ( )XX Moderate protein-calorie malnutrition evidenced by low BMI treated with a 13% weight loss documented over last 6 months treated dietary consult ( ) Severe protein-calorie malnutrition evidenced by low BMI treated with a 13% weight loss documented over last 6 months treated dietary consult ( ) Other explanation of clinical findings (Please Explain) ( ) Unable to determine (Please Define) ( ) Need to Discuss ( ) Not Agree The medical record reflects the following clinical findings, treatment, and risk factors. Clinical Indicators: Thin, BMI 15.2, Wt 39 kg, 13% weight loss over last 6 months. RBC 4.21, Hgb 13.6, Hct 40.9. Dietitian notes +temporal muscle wasting, 13.3% wt loss over 9 months. Treatment: dietary consult, diabetic diet, Boost shakes, Risk Factors: Age chronic illnesses with frequent exacerbations. Please clarify and document your clinical opinion in the progress notes and discharge summary. Terms such as "probable", "suspected", "likely", "questionable", "possible", or "still to be ruled out" are acceptable. IF IN AGREEMENT, YOU MUST DOCUMENT ABOVE DIAGNOSTIC STATEMENT IN DAILY PROGRESS NOTES AND DISCHARGE SUMMARY. This document is not part of the patient's record. Malnutrition Characteristics (2 of 6) in Chronic Illness CHARACTERISTICS MODERATE MALNUTRITION SEVERE MALNUTRITION ENERGY INTAKE <75% of estimated energyrequirement for >1 month <75% of estimated energyrequirement for >1 month WEIGHT LOSS 5%/1 month 7.5%/3 months 10%/6 months 20%/1 year > 5%/1 month >7.5%/3 months >10%/6 months >20%/1 year BODY FAT*loss of SQ fat from the orbits,triceps, or fat overlying the ribs MILD SEVERE MUSCLE MASS*muscle wasting at the temples,clavicles, shoulders, interosseousspaces,scapula, thigh, calf MILD SEVERE FLUID ACCUMULATION*localized or generalized edemaof the extremities, vulva, scrotumweight loss may be masked byedema MILD SEVERE CAMP TENDER STRENGTH N/A measurably decreased perthe device's standards Thank You, Vel Calderón, RN [phone]
[2016-11-27] MEDS ORDERED: NURSING VERBAL MED ORDER ONE (11:30)
[2016-11-27] MEDS ORDERED: BOOST PLUS VANILLA PO SCH ×2 (12:00)
[2016-11-27 15:26] VITALS: BP 96/59; PULSE 92; TEMP 37.4; O2SAT 94
--- NOTE | 2016-11-27 15:49 | Progress Note ---
Subjective Date of Service: November 27, 2016. Subjective pt is more responsive than description, knows he is in a hospital, no focal complaints. is slightly confused but maybe his baseline Problem List Medical Problems: (1) Dehydration Status: Acute (2) Humeral fracture Status: Acute (3) Hypoxia Status: Acute (4) Pneumonia Status: Acute (5) Pneumonia involving left lung Status: Acute (6) UTI (urinary tract infection) Status: Acute (7) UTI (urinary tract infection) Status: Acute (8) Weakness Status: Acute Review of Systems Constitutional: + weakness, No chills, No fever Respiratory: No cough, No shortness of breath Cardiac: No chest pain, No edema Abdomen: No diarrhea, No nausea, No pain, No vomiting Male : + hematuria, + problem reported (has deras), No dysuria Objective Vital Signs Date Time Temp Pulse Resp B/P Pulse Ox O2 Delivery O2 Flow Rate FiO2 11/27/16 07:29 36.6 90 16 99/65 95 Room Air 11/27/16 00:00 94 Room Air 11/26/16 23:30 36.9 77 16 89/54 95 Room Air 11/26/16 20:00 94 Room Air 11/26/16 18:15 94 Room Air 11/26/16 17:03 97 16 115/53 94 Room Air 11/26/16 15:24 85 16 118/58 93 Room Air 11/26/16 14:53 87 103/59 90 Room Air 11/26/16 14:36 91 Room Air 11/26/16 14:07 88 11/26/16 13:24 94 Room Air 11/26/16 13:06 37.0 86 14 125/60 90 Room Air Physical Exam General Appearance: WD/WN, + mild distress Neck: supple, no JVD Respiratory/Chest: chest non-tender, lungs clear Cardiovascular: regular rate, rhythm, + systolic murmur Abdomen: normal bowel sounds, non tender, soft Extremities: no pedal edema, no calf tenderness Neurologic/Psychiatric: alert, + disoriented Laboratory Results Last 24 Hours Test 11/26/16 14:41 11/26/16 14:44 11/26/16 14:51 11/26/16 16:35 White Blood Count 13.34 K/uL Red Blood Count 4.21 M/uL Hemoglobin 13.6 g/dL Hematocrit 40.9 % Mean Corpuscular Volume 97.1 fL Mean Corpuscular Hemoglobin 32.3 pg Mean Corpuscular Hemoglobin Concent 33.3 g/dl Platelet Count 156 K/uL Mean Platelet Volume 9.4 fL Neutrophils (%) (Auto) 84.4 % Lymphocytes (%) (Auto) 4.6 % Monocytes (%) (Auto) 10.6 % Eosinophils (%) (Auto) 0.1 % Basophils (%) (Auto) 0.1 % Neutrophils # (Auto) 11.27 K/uL Lymphocytes # (Auto) 0.61 K/uL Monocytes # (Auto) 1.41 K/uL Eosinophils # (Auto) 0.01 K/uL Basophils # (Auto) 0.01 K/uL RDW Standard Deviation 48.0 fL RDW Coefficient of Variation 13.5 % Immature Granulocyte % (Auto) 0.2 % Immature Granulocyte # (Auto) 0.03 K/uL Prothrombin Time 10.2 SECONDS Prothromb Time International Ratio 1.0 Activated Partial Thromboplast Time 24.6 SECONDS Partial Thromboplastin Ratio 0.9 Sodium Level 139 mmol/L Potassium Level 4.9 mmol/L Chloride Level 103 mmol/L Carbon Dioxide Level 29 mmol/L Anion Gap 7.0 mmol/L Blood Urea Nitrogen 30 mg/dl Creatinine 1.30 mg/dl Est Creatinine Clear Calc Drug Dose 23.3 ml/min Estimated GFR () 58.1 Estimated GFR (Non- 50.1 BUN/Creatinine Ratio 23.3 Random Glucose 68 mg/dl Calcium Level 9.1 mg/dl Total Creatine Kinase 61 U/L Creatine Kinase MB 0.9 ng/ml Creatine Kinase MB Ratio 1.5 Troponin I < 0.015 ng/ml Bedside Glucose 74 mg/dl Bedside Prothrombin Time INR 1.0 Urine Color DK YELLOW Urine Appearance TURBID Urine pH 5.5 Urine Specific [place] 1.019 Urine Protein 2+ Urine Glucose (UA) NEG Urine Ketones NEG Urine Occult Blood 2+ Urine Nitrite POS Urine Bilirubin NEG Urine Urobilinogen NEG Urine Leukocyte Esterase LARGE Urine WBC (Auto) >30 /hpf Urine RBC (Auto) 10-30 /hpf Urine Hyaline Casts (Auto) 1-5 /lpf Urine Epithelial Cells (Auto) 10-20 /lpf Urine Bacteria (Auto) NEG Urine Crystals TRIPLE PHOSPHATE Urine Yeast (Auto) BUDDING Test 11/26/16 17:50 11/26/16 20:13 11/27/16 05:15 11/27/16 07:35 Bedside Glucose 81 mg/dl 111 mg/dl 85 mg/dl White Blood Count 11.97 K/uL Red Blood Count 3.83 M/uL Hemoglobin 12.0 g/dL Hematocrit 37.2 % Mean Corpuscular Volume 97.1 fL Mean Corpuscular Hemoglobin 31.3 pg Mean Corpuscular Hemoglobin Concent 32.3 g/dl RDW Standard Deviation 48.0 fL RDW Coefficient of Variation 13.5 % Platelet Count 144 K/uL Mean Platelet Volume 9.4 fL Estimated Average Glucose 128 mg/dl Hemoglobin A1c 6.1 % Assessment and Plan 86 y/o M with metabolic encephalopathy on baseline of mental impairment metabolic encephalopathy related to PNA and possible catheter UTI (was on proph bactrim) CXR noted, Elevated WBC, Levaquin started in the ED prior to blood cx being drawn, urine culture multiple organisms, being recollected CT head neg for acute Trop neg BPH: chronic deras Pt was for TURP5/[address] Barnard, DM: stable glimeparide, SSI PRN HTN: stable on metoprolol Lovenox for DVT proph DM diet CM c/s for transition back to Skills on d/c
[2016-11-27] MEDS: BOOST PLUS VANILLA PO SCH ×2 (17:37)
[2016-11-27 20:44] VITALS: BP 127/80; PULSE 105
[2016-11-27] MEDS: SIMVASTATIN 20 MG TAB PO SCH (20:46)
[2016-11-27 23:20] VITALS: BP 92/59; PULSE 82; TEMP 36.7; O2SAT 95
[2016-11-28 06:38] LABS: CREATININE 0.9 mg/dl (0.60-1.40)
--- NOTE | 2016-11-28 07:37 | Progress Note ---
Subjective Date of Service: November 28, 2016. Problem List Medical Problems: (1) Dehydration Status: Acute (2) Humeral fracture Status: Acute (3) Hypoxia Status: Acute (4) Pneumonia Status: Acute (5) Pneumonia involving left lung Status: Acute (6) UTI (urinary tract infection) Status: Acute (7) UTI (urinary tract infection) Status: Acute (8) Weakness Status: Acute Objective Vital Signs Date Time Temp Pulse Resp B/P Pulse Ox O2 Delivery O2 Flow Rate FiO2 11/28/16 00:00 Room Air 11/27/16 23:20 36.7 82 18 92/59 95 Room Air 11/27/16 20:44 105 127/80 11/27/16 17:04 Room Air 11/27/16 15:26 37.4 92 20 96/59 94 Room Air 11/27/16 08:30 95 Room Air Laboratory Results Last 24 Hours Test 11/27/16 07:35 11/27/16 11:25 11/27/16 16:57 11/27/16 20:11 Bedside Glucose 85 mg/dl 122 mg/dl 127 mg/dl 149 mg/dl Test 11/28/16 05:30 Creatinine 0.90 mg/dl Est Creatinine Clear Calc Drug Dose 33.7 ml/min Estimated GFR () 90.6 Estimated GFR (Non- 78.2 Assessment and Plan 86 y/o M with metabolic encephalopathy on baseline of mental impairment metabolic encephalopathy related to PNA and possible catheter UTI (was on proph bactrim) CXR noted, Elevated WBC, Levaquin started in the ED prior to blood cx being drawn, urine culture multiple organisms, being recollected CT head neg for acute Trop neg BPH: chronic deras Pt was for TURP5/[address] Barnard, DM: stable glimeparide, SSI PRN HTN: stable on metoprolol Lovenox for DVT proph DM diet moderate malnutrition given weight loss and temporal muscle wasting CM c/s for transition back to Skills on d/c
[2016-11-28 07:42] VITALS: BP 95/59; PULSE 89; TEMP 36.9; O2SAT 94
[2016-11-28 08:08] LABS: HEMATOCRIT 36.6 % (42-52); MEAN CELL VOLUME 97.3 fL (80-100); MEAN CORPUSCULAR HEMOGLOBIN 31.6 pg (25-34); MEAN CORPUSCULAR HGB CONC 32.5 g/dl (32-36); MEAN PLATELET VOLUME 9.4 fL (7.4-10.4); PLATELET COUNT 160 K/uL (130-400); RED BLOOD COUNT 3.76 M/uL (4.7-6.1); WHITE BLOOD COUNT 10.02 K/uL (4.8-10.8)
[2016-11-28] MEDS: DOCUSATE SODIUM/SENNA 50/8.6MG TAB PO SCH ×2 (08:31→20:45)
[2016-11-28] MEDS: PANTOprazole SOD 40 MG TAB PO SCH (08:31)
[2016-11-28] MEDS: CHOLECALCIFEROL 1000 INTER.UNIT TAB PO SCH (08:31)
[2016-11-28] MEDS: INSULIN ASPART 100 UNITS/ML 3 ML PEN SC SCH ×4 (08:32→20:45)
[2016-11-28] MEDS: BOOST PLUS VANILLA PO SCH ×4 (08:32→16:42)
[2016-11-28] MEDS: GLIMEPIRIDE 2 MG TAB PO SCH (08:33)
[2016-11-28] MEDS: HEPARIN SOD 5000 UNIT/0.5 ML CARP SQ SCH ×2 (08:34→20:45)
[2016-11-28] MEDS: MULTIVITAMIN TAB PO SCH (08:34)
[2016-11-28] MEDS: POLYETHYLENE (MIRALAX) 17 GM PACK PO SCH (08:34)
[2016-11-28] MEDS: RANITIDINE HCL 150 MG TAB PO SCH ×2 (08:34→20:44)
[2016-11-28] MEDS: GABAPENTIN 600 MG TAB PO SCH ×3 (08:34→20:44)
[2016-11-28] MEDS: METOPROLOL TARTRATE 25 MG TAB PO SCH ×2 (08:34→20:44)
[2016-11-28 15:32] VITALS: BP 105/60; PULSE 90; TEMP 37.2; O2SAT 93
[2016-11-28] MEDS ORDERED: LEVOFLOXACIN 750MG / D5W IV SCH (16:00)
[2016-11-28 16:40] VITALS: Ht 160 cm; Wt 39.0 kg
[2016-11-28 20:44] VITALS: BP 137/78; PULSE 102
[2016-11-28] MEDS: SIMVASTATIN 20 MG TAB PO SCH (20:45)
[2016-11-28 23:58] VITALS: BP 102/67; PULSE 16; PULSE 87; TEMP 36.4; O2SAT 95
[2016-11-29 06:57] LABS: BUN/CREATININE RATIO 24.5 (10-20); CALCIUM 8.9 mg/dl (8.5-10.1); CREATININE 0.88 mg/dl (0.60-1.40); POTASSIUM 4.5 mmol/L (3.5-5.1)
[2016-11-29 07:20] VITALS: BP 106/68; PULSE 97; TEMP 36.6; O2SAT 97
[2016-11-29] MEDS: BOOST PLUS VANILLA PO SCH ×2 (08:00)
[2016-11-29] MEDS: POLYETHYLENE (MIRALAX) 17 GM PACK PO SCH (08:00)
[2016-11-29] MEDS: PANTOprazole SOD 40 MG TAB PO SCH (08:01)
[2016-11-29] MEDS: RANITIDINE HCL 150 MG TAB PO SCH (08:02)
[2016-11-29] MEDS: CHOLECALCIFEROL 1000 INTER.UNIT TAB PO SCH (08:02)
[2016-11-29] MEDS: METOPROLOL TARTRATE 25 MG TAB PO SCH (08:02)
[2016-11-29] MEDS: DOCUSATE SODIUM/SENNA 50/8.6MG TAB PO SCH (08:02)
[2016-11-29] MEDS: GABAPENTIN 600 MG TAB PO SCH ×2 (08:02→14:57)
[2016-11-29] MEDS: MULTIVITAMIN TAB PO SCH (08:03)
[2016-11-29] MEDS: HEPARIN SOD 5000 UNIT/0.5 ML CARP SQ SCH (08:05)
[2016-11-29] MEDS: INSULIN ASPART 100 UNITS/ML 3 ML PEN SC SCH ×2 (10:45→12:55)
[2016-11-29] MEDS ORDERED: LEVOFLOXACIN 750 MG TAB PO SCH (11:00)
[2016-11-29] MEDS ORDERED: LVQ750 PO (12:03)
[2016-11-29] MEDS ORDERED: TRAM-10 PO (12:03)
--- NOTE | 2016-11-29 12:04 | Discharge Instructions ---
Discharge Instructions Date of Service November 29, 2016. Admission Reason for Admission: Altered Mental Status Discharge Discharge Diagnosis / Problem: encephalopathy from uti poa Discharge Goals Goal(s): Diagnostic testing, Therapeutic intervention Activity Recommendations Activity Limitations: resume your previous activity . Current Hospital Diet Patient's current hospital diet: Diabetes Type 2 Diet Discharge Diet Recommended Diet: Regular Diet Pending Studies Studies pending at discharge: no Laboratory Results Hemoglobin A1c Test 11/27/16 05:15 Range/Units Estimated Average Glucose 128 mg/dl Hemoglobin A1c 6.1 H 4.5-5.6 % Medical Emergencies . Who to Call and When: Medical Emergencies: If at any time you feel your situation is an emergency, please call 911 immediately. . Non-Emergent Contact Non-Emergency issues call your: Primary Care Provider Call Non-Emergent contact if: temperature is above 101, your pain is unusual for you . . "Provider Documentation" section prepared by Karthik Quarles. . VTE Core Measure Inpt VTE Proph given/why not?: Unfractionated heparin SQ
[2016-11-29 13:02] VITALS: BP 106/68; PULSE 97; TEMP 36.6; O2SAT 97
--- NOTE | 2016-11-29 15:52 | Discharge Summary ---
Discharge Summary Date of Service November 29, 2016. Discharge Summary Admission Date: Nov 26, 2016 at 17:44 Discharge Date: November 29, 2016 Discharge Disposition: Personal care Principal Diagnosis: encephalopahty from uti poa Immunizations: Have You Had Influenza Vaccine: Yes Influenza Vaccine Date: Jun 03, 2012 History of Tetanus Vaccine?: Unknown History of Pneumococcal: Yes History of Hepatitis B Vaccine: Unknown Medication Reconciliation New Medications: Levofloxacin (Levofloxacin) 750 Mg Tab 750 MG PO Q2D@1100, #3 TAB Continued Medications: Baclofen (Baclofen) 10 Mg Tab 10 MG PO BID PRN for Headache may take with tramadol Cholecalciferol (Vitamin D3) 2,000 Unit Cap 1 CAP PO DAILY for 30 Days, #30 CAP 3 Refills Esomeprazole Magnesium (Nexium) 40 Mg Cap 40 MG PO QAM Gabapentin (Gabapentin) 600 Mg Tab 600 MG PO TID Glimepiride (Glimepiride) 1 Mg Tab 1 TAB PO QAM PRN for BSG >200 for 90 Days, #90 TAB 3 Refills TAKE IN ADDITION TO DAILY 1 MG IF BSG >200. Metoprolol Tartrate (Lopressor) 25 Mg Tab 25 MG PO BID Multivitamin (Multivitamin) Tab 1 TAB PO QAM, 0 Refills Nutritional Supplements (Ensure High Protein) 1 Liq Liq 8 OZ PO DAILY take around lunch time Polyethylene Glycol 3350 (Miralax) 1 Pow Pow 17 GM PO QAM, #527 GM Ranitidine (Zantac) 150 Mg Tab 150 MG PO BID, TAB Sennosides-Docusate Sodium (Senna S) 1 Tab Tab 1 TAB PO BID Simvastatin (Simvastatin) 20 Mg Tab 20 MG PO QPM Tramadol (Ultram) 50 Mg Tab 50 MG PO BID PRN for Pain, #30 TAB (This prescription has been renewed) Discontinued Medications: Glimepiride (Glimepiride) 1 Mg Tab 1 MG PO QAM, 3 Refills Sulfa/Trimethoprim (Bactrim Ds 800MG/160MG) Tab 1 TAB PO BID, #6 TAB Discharge Exam Review of Systems: Constitutional: No chills, No fever, No sweats Respiratory: No cough, No sputum Cardiovascular: No chest pain, No orthopnea Musculoskeletal: + joint pain, + muscle pain Genitourinary - Male: No dysuria, No hematuria Neurologic: + balance problems, + weakness Physical Exam: General Appearance: + mild distress, + thin Neck: supple, no JVD Respiratory/Chest: chest non-tender, lungs clear Cardiovascular: regular rate, rhythm, + systolic murmur Abdomen / GI: normal bowel sounds, non tender Extremities: normal capillary refill, no pedal edema Neurologic/Psychiatric: alert, + pertinent finding (oreinted x2) Hospital Course 86 y/o M with metabolic encephalopathy on baseline of mental impairment metabolic encephalopathy related to catheter UTI (was on proph bactrim) poa treated with IVF and levaquin CXR noted, Elevated WBC, Levaquin started in the ED prior to blood cx being drawn, urine culture multiple organisms, clinically improved will complete extended course of renal dosed levaquin for a complicated uti CT head neg for acute Trop neg BPH: chronic deras Pt was for TURP5/[address] Barnard, will need to reschedule with urology once infection is cleared DM: stable glimeparide will only be used prn glucoses >200 as A1C was good on admission and pt did have some low readings here HTN: stable on metoprolol moderate malnutrition given weight loss and temporal muscle wasting, encouraged supplements to help with nutrition CM c/s for transition back to Skills on d/c Total Time Spent: Greater than 30 minutes This includes examination of the patient, discharge planning, medication reconciliation, and communication with other providers. Discharge Instructions Please refer to the electronic Patient Visit Report (Discharge Instructions) for additional information.
[2016-11-30] MEDS ORDERED: LEVOFLOXACIN 750 MG TAB PO SCH (11:00)
[2017-01-15] MEDS ORDERED: CIPR1TAB10 PO (10:29)
[2017-01-18] MEDS ORDERED: HYDR-3419 PO (09:40)
== END 2016-11-29 15:21 | disposition home health service (06) | DRG 698 ==
LOC: ENRESERVDT → ENRESERVTM → EDBD 12:57 → C.EDC 12:58 → C.4E 17:44
PROVIDERS: ADMIT Family Medicine; ATTEND Internal Medicine
DX: T83.511A Infection and inflammatory reaction due to indwelling urethral catheter, initial encounter (principal); N39.0 Urinary tract infection, site not specified; G93.41 Metabolic encephalopathy; E44.0 Moderate protein-calorie malnutrition; I48.91 Unspecified atrial fibrillation; E11.40 Type 2 diabetes mellitus with diabetic neuropathy, unspecified; E78.5 Hyperlipidemia, unspecified; K21.9 Gastro-esophageal reflux disease without esophagitis; F79 Unspecified intellectual disabilities; I10 Essential (primary) hypertension; J47.9 Bronchiectasis, uncomplicated; R13.10 Dysphagia, unspecified; N40.1 Benign prostatic hyperplasia with lower urinary tract symptoms; Y92.199 Unspecified place in other specified residential institution as the place of occurrence of the external cause; Z86.73 Personal history of transient ischemic attack (TIA), and cerebral infarction without residual deficits

== ENCOUNTER → 2016-12-27 | Outpatient (CLI) | payer OTHER ==
[~2016-12-27] MED LIST changes: -CEFD1CAP14 PO; +CIPR1TAB10 PO; -DUTA0.5C PO; -FERR1TAB62 PO; +HYDR-3419 PO; +LVQ750 PO; +ZNTT/150 PO
--- NOTE | 2016-12-27 14:00 | DIAGNOSTIC IMAGING REPORT ---
CHEST 2 VIEWS ROUTINE CLINICAL HISTORY: Pneumonia. COMPARISON STUDY: Chest radiograph November 26, 2016. FINDINGS: Lateral view demonstrates several old compression deformities of the thoracic spine. Positioning on this exam was difficult. Linear bilateral opacities favor atelectasis or scarring. There is no evidence of pulmonary edema. There is no pneumothorax. There is a trace left pleural effusion. Left lower lung opacity has improved since prior exam. Linear residual opacity favors atelectasis. Cardiac size is normal. IMPRESSION: 1. Interval improvement in left basilar opacity. Residual linear opacity favors atelectasis. 2. Trace left pleural effusion. Electronically signed by: Navarro Curry M.D. 12/27/2016 1:59 PM Dictated Date/Time: 12/27/2016 1:57 PM
== END | disposition home or self-care (01) ==
LOC: C.RAD 13:09
PROVIDERS: ATTEND Nurse Practitioner
DX: J18.9 Pneumonia, unspecified organism (principal)

== ENCOUNTER → 2017-01-04 | Outpatient (CLI) | payer OTHER ==
[2017-01-04 16:51] LABS: BASO % 0.6 %; BASO ABS # 0.05 K/uL (0-0.2); COMPLETE YES; EOS % 3.7 %; HEMATOCRIT 40.9 % (42-52); IG% 0.1 %; LYMPH % 22.5 %; MEAN CELL VOLUME 99.3 fL (80-100); MEAN CORPUSCULAR HEMOGLOBIN 31.8 pg (25-34); MEAN PLATELET VOLUME 9.6 fL (7.4-10.4); MONO % 10.2 %; NEUT % 62.9 %; PLATELET COUNT 193 K/uL (130-400); RED BLOOD COUNT 4.12 M/uL (4.7-6.1); WHITE BLOOD COUNT 8.45 K/uL (4.8-10.8)
[2017-01-04 16:59] LABS: ALT/SGPT 38 U/L (12-78); AST/SGOT 30 U/L (15-37); BLOOD UREA NITROGEN 22 mg/dl (7-18); BUN/CREATININE RATIO 22.6 (10-20); CALCIUM 8.7 mg/dl (8.5-10.1); CARBON DIOXIDE 29 mmol/L (21-32); CHLORIDE 105 mmol/L (98-107); CREATININE 0.96 mg/dl (0.60-1.40); GLUCOSE 108 mg/dl (70-99); POTASSIUM 4.4 mmol/L (3.5-5.1); SODIUM 140 mmol/L (136-145)
[2017-01-04 17:04] LABS: ALB/GLOB RATIO 0.6 (0.9-2); ALKALINE PHOSPHATASE 72 U/L (45-117); CHOLESTEROL 169 mg/dl (0-200); CHOLESTEROL/HDL RATIO 2.9; FERRITIN 93.4 ng/ml (8.0-388.0); HDL CHOLESTEROL 59 mg/dl; LDL CHOLESTEROL CALCULATED 92 mg/dl; TRIGLYCERIDES 90 mg/dl (0-150); VERY LOW DENSITY LIPOPROT CALC 18 mg/dl
[2017-01-04 17:18] LABS: URINE APPEARANCE TURBID (CLEAR); URINE BILIRUBIN NEG (NEG); URINE COLOR DK YELLOW; URINE EPITHELIAL CELL AUTO 0-5 /lpf (0-5); URINE NITRITE NEG (NEG); URINE SPECIFIC GRAVITY 1.021 (1.000-1.030); UROBILINOGEN NEG (NEG)
[2017-01-04 17:21] LABS: ESTIMATED AVERAGE GLUCOSE 126 mg/dl; HA1C FLAG Normal (Normal)
[2017-01-04 17:22] LABS: MANUAL MICROSCOPIC REQUIRED? NO; REVIEW REQ? YES
== END | disposition home or self-care (01) ==
LOC: C.LABBC 13:51
PROVIDERS: ATTEND Urology
DX: N40.1 Benign prostatic hyperplasia with lower urinary tract symptoms (principal); D50.9 Iron deficiency anemia, unspecified; E11.9 Type 2 diabetes mellitus without complications; E78.00 Pure hypercholesterolemia, unspecified

== ENCOUNTER → 2017-01-10 | Outpatient (CLI) | payer OTHER ==
[2017-01-10 13:14] LABS: URINE APPEARANCE TURBID (CLEAR); URINE BILIRUBIN NEG (NEG); URINE COLOR DK YELLOW; URINE NITRITE POS (NEG); URINE PH 6.5 (4.5-7.5); URINE SPECIFIC GRAVITY 1.016 (1.000-1.030); UROBILINOGEN NEG (NEG)
[2017-01-10 13:26] LABS: MANUAL MICROSCOPIC REQUIRED? NO; REVIEW REQ? YES
== END | disposition home or self-care (01) ==
LOC: C.LAB 11:23
PROVIDERS: ATTEND Urology
DX: N40.1 Benign prostatic hyperplasia with lower urinary tract symptoms (principal)

== ENCOUNTER → 2017-01-12 | Outpatient (CLI) | payer OTHER | END | disposition home or self-care (01) | LOC: C.LABSPEC 14:36 | PROVIDERS: ATTEND Urology | DX: R33.9 Retention of urine, unspecified (principal); N39.0 Urinary tract infection, site not specified ==

== ENCOUNTER 2017-01-18 07:06 | Day surgery (SDC) | payer OTHER ==
[2016-10-27 13:24] VITALS: BMI 18.0
--- NOTE | 2016-10-27 14:06 | PAT Medication Instructions ---
Service Date Oct 27, 2016. Current Home Medication List Baclofen (Baclofen), 10 MG PO BID PRN for Headache Cefdinir (Omnicef), 300 MG PO Q12H Cholecalciferol (Vitamin D3), 1 CAP PO DAILY Dutasteride (Avodart), 0.5 MG PO QAM Esomeprazole Magnesium (Nexium), 40 MG PO QAM Ferrous Sulfate (Ferrous Sulfate), 325 MG PO 3XWEEK Gabapentin (Gabapentin), 600 MG PO TID Glimepiride (Glimepiride), 1 MG PO QAM Glimepiride (Glimepiride), 1 TAB PO QAM PRN for BSG >200 Metoprolol Tartrate (Lopressor), 25 MG PO BID Multivitamin (Multivitamin), 1 TAB PO QAM Nutritional Supplements (Ensure High Protein), 8 OZ PO DAILY Polyethylene Glycol 3350 (Miralax), 17 GM PO QAM Sennosides-Docusate Sodium (Senna S), 1 TAB PO BID Simvastatin (Simvastatin), 20 MG PO QPM Tramadol (Ultram), 50 MG PO BID PRN for Pain Medication Instructions For Your Scheduled Surgery Cefdinir (Omnicef), 300 MG PO Q12H (to be completed prior to surgery) - Hold the following medications the morning of surgery: Sennosides-Docusate Sodium (Senna S), 1 TAB PO BID Polyethylene Glycol 3350 (Miralax), 17 GM PO QAM Multivitamin (Multivitamin), 1 TAB PO QAM Nutritional Supplements (Ensure High Protein), 8 OZ PO DAILY Glimepiride (Glimepiride), 1 MG PO QAM Glimepiride (Glimepiride), 1 TAB PO QAM PRN for BSG >200 Ferrous Sulfate (Ferrous Sulfate), 325 MG PO 3XWEEK Dutasteride (Avodart), 0.5 MG PO QAM Cholecalciferol (Vitamin D3), 1 CAP PO DAILY Baclofen (Baclofen), 10 MG PO BID PRN for Headache - Take the following medications the morning of surgery with a sip of water ( otherwise nothing to eat or drink after midnight including chewing gum or mints) Tramadol (Ultram), 50 MG PO BID PRN for Pain (okay to take up to 4 hours prior to surgery if needed) Metoprolol Tartrate (Lopressor), 25 MG PO BID Gabapentin (Gabapentin), 600 MG PO TID Esomeprazole Magnesium (Nexium), 40 MG PO QAM - Take the following medications as scheduled the night before surgery: Simvastatin (Simvastatin), 20 MG PO QPM Tramadol (Ultram), 50 MG PO BID PRN for Pain Sennosides-Docusate Sodium (Senna S), 1 TAB PO BID Metoprolol Tartrate (Lopressor), 25 MG PO BID Gabapentin (Gabapentin), 600 MG PO TID If you have any questions please call us at [phone] (Jory Servin PA-C) or [phone] or [phone]
[2016-10-27 14:19] VITALS: BMI 18.0
[2016-10-27 15:15] LABS: PARTIAL THROMBOPLASTIN RATIO 0.9; PROTHROMBIN TIME (PATIENT) 10.3 SECONDS (9.0-12.0)
[~2017-01-18] VITALS: Ht 160 cm; Wt 37.2 kg
[~2017-01-18 07:06] MED LIST changes: +CIPROFLOXACIN / D5W 400 MG IV SCH; +ETOMIDATE 2 MG/ML 20 ML VIAL IV ONE; +FENTANYL CITRATE INJ 50 MCG/1 ML 2 ML VIAL ONE; +GENTAMICIN INJ 80 MG in DEXTROSE 5% 100ML 100 ML IV SCH; -HYDR-3419 PO; +LACTATED RINGER'S 1000ML 1,000 ML IV SCH; +LIDOCAINE HCL 2% 2 ML VIAL (20MG/ML) ONE; +PHENYLEPHRINE 100MCG/ML 5ML SYR ONE; +PROPOFOL IV EMULSION 10 MG/ML 20 ML VIAL IV ONE
[2017-01-18 07:41] VITALS: BP 119/64; PULSE 80; TEMP 36.6; O2SAT 97; Ht 160 cm; Wt 37.2 kg
[2017-01-18] MEDS ORDERED: ROCURONIUM BROMIDE 10 MG/ML 5 ML VIAL ONE (07:45)
[2017-01-18] MEDS ORDERED: PROPOFOL IV EMULSION 10 MG/ML 20 ML VIAL IV ONE (07:45)
[2017-01-18] MEDS ORDERED: GLYCOPYRROLATE INJ 0.2 MG/ML VIAL ONE (07:45)
[2017-01-18] MEDS ORDERED: FENTANYL CITRATE INJ 50 MCG/1 ML 2 ML VIAL ONE (07:45)
[2017-01-18] MEDS ORDERED: NEOSTIGMINE METHYLSULFATE 5 MG/5 ML SYR ONE (07:45)
[2017-01-18] MEDS ORDERED: DEXAMETHASONE SOD INJ 4 MG/ML VIAL ONE (07:45)
[2017-01-18] MEDS ORDERED: LIDOCAINE HCL 2% 2 ML VIAL (20MG/ML) ONE (07:45)
[2017-01-18] MEDS ORDERED: ONDANSETRON INJ 2 MG/ML 2 ML VIAL ONE (07:45)
[2017-01-18] MEDS ORDERED: FENTANYL CITRATE INJ 50 MCG/1 ML 2 ML VIAL IV PRN (08:15)
[2017-01-18] MEDS ORDERED: EpHEDrine SULFATE INJ 50 MG/ML AMP IV PRN (08:15)
[2017-01-18] MEDS ORDERED: ONDANSETRON INJ 2 MG/ML 2 ML VIAL IV PRN (08:15)
[2017-01-18] MEDS ORDERED: ATROPINE SULFATE 0.1 MG/ML 5ML SYR IV PRN (08:15)
--- NOTE | 2017-01-18 08:28 | History & Physical Bridge Note ---
H&P Re-Evaluation Bridge Note: I have examined the patient, reviewed the History & Physical and in the interval since the performance of the History & Physical I have noted the following changes of clinical significance: No changes noted
[2017-01-18] MEDS ORDERED: HYDR-3419 PO (09:40)
--- NOTE | 2017-01-18 09:43 | Discharge Instructions ---
Discharge Instructions Date of Service Jan 18, 2017. Admission Reason for Admission: Urine Retention, Benign Prostatic Hypertrophy Discharge Discharge Diagnosis / Problem: BPH, history of UTI s/p GLTURP Discharge Goals Goal(s): Improve function, Improve disease control, Therapeutic intervention Activity Recommendations Activity Limitations: per Instructions/Follow-up section Lifting Limitations: no more than 25 pounds, gradually increase as tolerated ( over 3 days) Exercise/Sports Limitations: rest today, gradually increase as tolerated May Resume Sexual Activity: when tolerated Shower/Bathe: tomorrow (no tub bath until edras out) Deras to gravity, trial of void as planned Complete Cipro as prescribed . Discharge Diet Recommended Diet: Regular Diet (good fluid intake) Procedures Procedures Performed: Greenlight Laser of Prostate Pending Studies Studies pending at discharge: no Laboratory Results Hemoglobin A1c Test 01/04/17 13:53 Range/Units Estimated Average Glucose 126 mg/dl Hemoglobin A1c 6.0 H 4.5-5.6 % Lipid Panel Test 01/04/17 13:53 Range/Units Triglycerides Level 90 0-150 mg/dl Cholesterol Level 169 0-200 mg/dl HDL Cholesterol 59 mg/dl Cholesterol/HDL Ratio 2.9 LDL Cholesterol, Calculated 92 mg/dl Medical Emergencies . Who to Call and When: Medical Emergencies: If at any time you feel your situation is an emergency, please call 911 immediately. . Non-Emergent Contact Non-Emergency issues call your: Urologist Call Non-Emergent contact if: you have a fever, temperature is above 101, your pain is not controlled, your pain is worsening, your pain is unusual for you, your pain is concerning you, you have any medication questions . . "Provider Documentation" section prepared by Gary Barnard. . VTE Core Measure Inpt VTE Proph given/why not?: SCD's [place] Drug Monitoring Program Search Results: patient reviewed within database, no issues identified
[2017-01-18] MEDS ORDERED: ACETAMINOPHEN 500 MG TAB PO PRN (09:45)
[2017-01-18] MEDS ORDERED: PHENAZOPYRIDINE HCL 100 MG TAB PO PRN (09:45)
--- NOTE | 2017-01-18 09:46 | [facility] Post Operative Brief Note ---
Immediate Operative Summary Operative Date Jan 18, 2017. Pre-Operative Diagnosis Urinary Retention and reccuring UTI Post-Operative Diagnosis Urinary Retention and recurring UTI Procedure(s) Performed Greenlight Laser Vaporization of Prostate Surgeon Dr. Gary Barnard Pivot End Polisher Surgeon(s) none Estimated Blood Loss 0 Findings Open fossa with excellent hemostasis after 18K J used Specimens None per surgeon Drains 18 fr deras 10 cc Anesthesia GAET Complication(s) None Disposition Recovery Room / PACU
--- NOTE | 2017-01-18 10:09 | OPERATIVE REPORT ---
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 POSTOPERATIVE DIAGNOSIS: Same. PROCEDURE: GreenLight vaporization of the prostate gland. SURGEON: Dr. Gary Barnard. MARINE ENGINEER CPVEC: None. ANESTHESIA: General anesthesia with endotracheal intubation. COMPLICATIONS: None. DRAINS LEFT IN PLACE: Include an 18-Ethiopian Wakefield catheter to gravity drainage with 10 mL of sterile water in the balloon. ESTIMATED BLOOD LOSS: Minimal. FINDINGS: Open fossa after completion of case with 18,000 joules of energy being used. BRIEF HISTORY: Mr. Rivera is a pleasant 86-year-old debilitated male who I have seen as an outpatient for history of difficulties with his voiding, urinary retention, and recurrent UTIs. Per his care staff, the patient is significantly bothered by his urinary catheter and would like to have it out. He is here today for GreenLight vaporization of the prostate in hopes of accomplishing this goal. Please see H&P for further details. The patient has been treated for 5 days with ciprofloxacin for a positive preoperative urine culture. He has sufficient antibiotics to continue at home. He is double covered with ciprofloxacin and gentamicin today. SCDs used for DVT prophylaxis. PROCEDURE IN DETAIL: The patient was properly identified and brought to the operative suite. After identification of appropriate consent on the chart, general anesthesia with endotracheal intubation was initiated, and the patient was prepped and draped in standard fashion for this procedure. full time paramedic-out procedure was followed. GreenLight laser resectoscope was passed into the bladder under direct visualization and bladder was surveyed in its entirety including 30- and 70-degree lenses, demonstrating moderate size bladder diverticula on both the left and right posterior wall with mobile debris and mucosal irritation within it. Bladder was generously irrigated until all debris was free. No intravesical tumors or papillary lesions were noted. Grade 3 trabeculation was appreciated. Ureteral orifices were identified in the normal anatomic location and were both effluxing clear yellow urine. Using a side-fire GreenLight laser scope, circumferential vaporization of the prostate gland was performed. Relaxing incisions at the 5 and 7 o'clock positions were made at the bladder neck to avoid future bladder neck contractures. Care was taken to avoid any injury to the ureteral orifices which were noted to be intact at the end of the case. After the case was complete, an open prostatic fossa was appreciated with excellent hemostasis. Prostate was felt to be visually unobstructed. Resectoscope was removed and an 18-Ethiopian Wakefield catheter was placed with return of clear yellow urine. 10 mL of sterile water were placed in the balloon and catheter was placed to gravity irrigation and anesthesia was reversed. The patient was transferred to the recovery room in stable condition. FOLLOWUP CARE: The patient will be discharged to home with a short prescription for Vicodin should he require for postoperative pain. Outpatient trial of void and postoperative visits are confirmed. He is instructed to contact our service should he note any fevers, chills, nausea, vomiting, or other significant difficulties in the postoperative period. I attest to the content of the Intraoperative Record and any orders documented therein. Any exception s are noted below.
--- NOTE | 2017-01-18 10:21 | Anesthesiology Progress Note ---
Anesthesia Post Op Note Date & Time Jan 18, 2017 at 10:20 Vital Signs Pain Intensity: 0 Vital Signs Past 12 Hours Date Time Temp Pulse Resp B/P (MAP) Pulse Ox O2 Delivery O2 Flow Rate FiO2 01/18/17 10:10 100 14 103/60 100 Room Air 01/18/17 10:00 103 12 104/67 100 Mask 10 01/18/17 09:50 96 12 106/54 100 Mask 10 01/18/17 09:41 36.2 94 12 116/61 100 Mask 10 01/18/17 07:41 36.6 80 20 119/64 (82) 97 Room Air Notes Mental Status: alert / awake / arousable, participated in evaluation Pt Amnestic to Procedure: Yes Nausea / Vomiting: adequately controlled Pain: adequately controlled Airway Patency, RR, SpO2: stable & adequate BP & HR: stable & adequate Hydration State: stable & adequate Anesthetic Complications: no major complications apparent
[2017-01-18 10:30] VITALS: BP 90/51; PULSE 95; TEMP 36.2; O2SAT 96
== END 2017-01-18 11:30 | disposition home or self-care (01) ==
LOC: C.ACU 07:06
PROVIDERS: ATTEND Urology
DX: R33.8 Other retention of urine (principal); N21.0 Calculus in bladder; N39.0 Urinary tract infection, site not specified; N40.1 Benign prostatic hyperplasia with lower urinary tract symptoms; I48.0 Paroxysmal atrial fibrillation; F03.90 Unspecified dementia, unspecified severity, without behavioral disturbance, psychotic disturbance, mood disturbance, and anxiety; E11.42 Type 2 diabetes mellitus with diabetic polyneuropathy; K21.9 Gastro-esophageal reflux disease without esophagitis; E78.00 Pure hypercholesterolemia, unspecified; I10 Essential (primary) hypertension; E55.9 Vitamin D deficiency, unspecified; E78.5 Hyperlipidemia, unspecified; Z83.3 Family history of diabetes mellitus; Z87.891 Personal history of nicotine dependence

== ENCOUNTER → 2017-04-03 | Outpatient (CLI) | payer OTHER ==
[~2017-04-03] MED LIST changes: -CIPROFLOXACIN / D5W 400 MG IV SCH; -ETOMIDATE 2 MG/ML 20 ML VIAL IV ONE; -FENTANYL CITRATE INJ 50 MCG/1 ML 2 ML VIAL ONE; -GENTAMICIN INJ 80 MG in DEXTROSE 5% 100ML 100 ML IV SCH; +HYDR-3419 PO; -LACTATED RINGER'S 1000ML 1,000 ML IV SCH; -LIDOCAINE HCL 2% 2 ML VIAL (20MG/ML) ONE; -LVQ750 PO; -PHENYLEPHRINE 100MCG/ML 5ML SYR ONE; -PROPOFOL IV EMULSION 10 MG/ML 20 ML VIAL IV ONE; -ZNTT/150 PO
--- NOTE | 2017-04-09 09:17 | CODING QUERY NO DIAGNOSIS ---
TREATMENT RENDERED WITHOUT A DIAGNOSIS To promote full compliance with coding requirements relating to patient care, physician participation is requested in all cases of dredge boat engineer uncertainty. Please assist us with providing a diagnosis/symptom for the test(s) below: A diagnosis/symptom was not documented on your Order. A valid diagnosis/symptom is required to bill all insurances. Please remember that we are unable to code a diagnosis of rule out, probable, possible, questionable, or suspected. Tests that require a diagnosis: * HEPATITIS B SURFACE ANTIGEN DIAGNOSIS: * HEPATITIS C IGG 13 YR OR OLDER DIAGNOSIS: * HIV 4THGEN (HIV 1,2, AB+p24 AG) DIAGNOSIS: Provider Signature: Date: Thank you Marce Hope Health Information Management Once completed, please kindly fax back to [phone] For questions please call [phone]
== END | disposition home or self-care (01) ==
LOC: C.LAB1850 15:50
PROVIDERS: ATTEND Nurse Practitioner Family
DX: Z01.89 Encounter for other specified special examinations (principal)

== ENCOUNTER → 2017-08-29 | Outpatient (CLI) | payer OTHER ==
[~2017-08-29] MED LIST changes: -HYDR-3419 PO
[2017-08-29 18:04] LABS: BASO % 0.7 %; BASO ABS # 0.05 K/uL (0-0.2); EOS % 4.5 %; EOS ABS # 0.31 K/uL (0-0.5); HEMATOCRIT 41.4 % (42-52); HEMOGLOBIN 13.1 g/dL (14.0-18.0); IG# 0.01 K/uL (0.00-0.02); MEAN CELL VOLUME 100.2 fL (80-100); MEAN CORPUSCULAR HEMOGLOBIN 31.7 pg (25-34); MEAN CORPUSCULAR HGB CONC 31.6 g/dl (32-36); MEAN PLATELET VOLUME 10.1 fL (7.4-10.4); MONO % 11.6 %; MONO ABS # 0.79 K/uL (0.11-0.59); NEUT % 61.1 %; NEUT ABS # 4.17 K/uL (1.4-6.5); PLATELET COUNT 172 K/uL (130-400); RED CELL DISTRIBUTION WIDTH CV 14.7 % (11.5-14.5); RED CELL DISTRIBUTION WIDTH SD 53.6 fL (36.4-46.3); WHITE BLOOD COUNT 6.83 K/uL (4.8-10.8)
[2017-08-29 18:11] LABS: CREATININE RANDOM URINE 80.3 mg/dl
[2017-08-29 18:19] LABS: BLOOD UREA NITROGEN 29 mg/dl (7-18); CALCIUM 9.2 mg/dl (8.5-10.1); CARBON DIOXIDE 29 mmol/L (21-32); GLUCOSE 116 mg/dl (70-99); POTASSIUM 4.5 mmol/L (3.5-5.1); SODIUM 136 mmol/L (136-145)
[2017-08-30 05:49] LABS: HEMOGLOBIN A1C 5.5 % (4.5-5.6)
== END | disposition home or self-care (01) ==
LOC: C.LABBFT 14:04
PROVIDERS: ATTEND Nurse Practitioner
DX: E11.42 Type 2 diabetes mellitus with diabetic polyneuropathy (principal); R41.0 Disorientation, unspecified; D51.0 Vitamin B12 deficiency anemia due to intrinsic factor deficiency

== ENCOUNTER → 2017-10-04 | Outpatient (CLI) | payer OTHER ==
--- NOTE | 2017-10-04 10:31 | DIAGNOSTIC IMAGING REPORT ---
Abdominal aortic ultrasound CLINICAL HISTORY: Evaluate abdominal aortic aneurysm. COMPARISON STUDY: Abdomen and pelvis CT 04/18/2016. FINDINGS: The proximal to mid aorta measures 2.1 cm, mid aorta 2.8 cm, mid to distal distal aorta 3.1 cm. The distal aorta and aortic bifurcation are not visualized. IMPRESSION: Small infrarenal abdominal aortic aneurysm measuring up to 3.1 cm. The distal aorta and aortic bifurcation were not completely visualized due to overlying bowel gas. Electronically signed by: Jovon Bullard M.D. 10/04/2017 10:29 AM Dictated Date/Time: 10/04/2017 10:28 AM
--- NOTE | 2017-10-04 10:31 | DIAGNOSTIC IMAGING REPORT ---
ULTRASOUND OF THE CAROTID ARTERIES CLINICAL HISTORY: I65.29 Arteriosclerosis of carotid [id number] COMPARISON STUDY: October 2008 TECHNIQUE: Real-time, grayscale, and color Doppler sonography of the carotid arteries was performed. Imaging reviewed in the transverse and longitudinal planes. NASCET criteria was utilized for stenosis calcification. FINDINGS: There is mild atherosclerotic plaque present . The peak systolic velocity within the right internal carotid artery is 92 cm/sec. The systolic velocity ratio of right internal to common carotid artery is 1.4. The peak systolic velocity within the left internal carotid artery is 67 cm/sec. The systolic velocity ratio left internal to common carotid artery is 0.6. Antegrade flow is seen in the vertebral arteries. The external carotid arteries are patent. IMPRESSION: No evidence of hemodynamically significant carotid stenosis. Electronically signed by: Sohail Rand M.D. 10/04/2017 10:30 AM Dictated Date/Time: 10/04/2017 10:28 AM
== END | disposition home or self-care (01) ==
LOC: C.ULTR 08:58
PROVIDERS: ATTEND Nurse Practitioner
DX: I71.4 Abdominal aortic aneurysm, without rupture (principal); I65.29 Occlusion and stenosis of unspecified carotid artery

== ENCOUNTER 2017-10-09 12:28 | Emergency (ER) | payer OTHER ==
[2017-10-09 12:44] VITALS: O2SAT 96
[2017-10-09 12:49] VITALS: TEMP 36.6
[2017-10-09] MEDS ORDERED: SODIUM CHLORIDE 0.9% 500ML 500 ML IV STA ×2 (12:57→13:57)
[2017-10-09 13:08] LABS: BASO % 0.4 %; BASO ABS # 0.04 K/uL (0-0.2); EOS % 0.6 %; EOS ABS # 0.06 K/uL (0-0.5); HEMATOCRIT 41.6 % (42-52); HEMOGLOBIN 13.3 g/dL (14.0-18.0); IG# 0.02 K/uL (0.00-0.02); LYMPH % 14.5 %; LYMPH ABS # 1.35 K/uL (1.2-3.4); MEAN CORPUSCULAR HEMOGLOBIN 31.7 pg (25-34); MEAN PLATELET VOLUME 10.2 fL (7.4-10.4); MONO % 8.9 %; MONO ABS # 0.83 K/uL (0.11-0.59); NEUT % 75.4 %; NEUT ABS # 7.04 K/uL (1.4-6.5); PLATELET COUNT 189 K/uL (130-400); RED CELL DISTRIBUTION WIDTH CV 14.6 % (11.5-14.5); RED CELL DISTRIBUTION WIDTH SD 52.8 fL (36.4-46.3); WHITE BLOOD COUNT 9.34 K/uL (4.8-10.8)
[2017-10-09] MEDS ORDERED: DICL1GEL12 TOP (13:09)
[2017-10-09] MEDS ORDERED: GABA800T PO (13:09)
[2017-10-09 13:23] LABS: ALBUMIN 3.2 gm/dl (3.4-5.0); ALT/SGPT 29 U/L (12-78); BLOOD UREA NITROGEN 38 mg/dl (7-18); CALCIUM 9.4 mg/dl (8.5-10.1); CARBON DIOXIDE 30 mmol/L (21-32); CREATININE 1.35 mg/dl (0.60-1.40); GLUCOSE 125 mg/dl (70-99); POTASSIUM 4.9 mmol/L (3.5-5.1); SODIUM 139 mmol/L (136-145)
--- NOTE | 2017-10-09 13:29 | DIAGNOSTIC IMAGING REPORT ---
SINGLE VIEW CHEST CLINICAL HISTORY: Generalized weakness. FINDINGS: An AP, portable, upright chest radiograph is compared to study dated 12/27/2016. The examination is significantly degraded by portable technique and patient rotation. The heart is top normal for projection and there is atherosclerotic calcification of the thoracic aorta. The pulmonary vasculature is noncongested. Emphysema and chronic interstitial thickening are similar to previous. Foci of scarring/atelectasis are again seen throughout both lungs, greatest at the left lung base. There is no airspace consolidation typical for pneumonia or large pleural effusion. Apical scarring is observed. No pneumothorax is seen. The skeletal structures are osteopenic. Chronic posttraumatic deformity is seen in the left proximal humerus. Degenerative changes noted in the shoulders and thoracic spine. IMPRESSION: Emphysema and chronic changes as above. No acute cardiopulmonary abnormality is identified. Electronically signed by: Diony Valenzuela M.D. 10/09/2017 1:28 PM Dictated Date/Time: 10/09/2017 1:26 PM
[2017-10-09 13:33] LABS: ALKALINE PHOSPHATASE 73 U/L (45-117); AST/SGOT 28 U/L (15-37); TOTAL PROTEIN 7.4 gm/dl (6.4-8.2)
--- NOTE | 2017-10-09 13:42 | DIAGNOSTIC IMAGING REPORT ---
HEAD WITHOUT CONTRAST (CT) CT DOSE: 1774.42 mGycm HISTORY: Mental status change Pt c/o AMS TECHNIQUE: Multiaxial CT images of the head were performed without the use of intravenous contrast. A dose lowering technique was utilized adhering to the principles of ALARA. Comparison: 11/26/2016 Findings: The paranasal sinuses and mastoid air cells are clear. Pre-existing findings of diffuse encephalomalacia of the left and to lesser extent right cerebral hemisphere. Mild compensatory prominence of the ventricular system. Chronic: 40. Unchanging lucency over the left parietal bone. No evidence for acute intracranial hemorrhage. Impression: Chronic change. No acute process. The above report was generated using voice recognition software. It may contain grammatical, syntax or spelling errors. Electronically signed by: Thiago Kramer M.D. 10/09/2017 1:41 PM Dictated Date/Time: 10/09/2017 1:37 PM
--- NOTE | 2017-10-09 13:52 | EMERGENCY ROOM VISIT NOTE ---
History Report prepared by Cleopatraibrazia: Francisco Hankins Under the Supervision of: Dr. Ramses Galindo M.D. First contact with patient: 12:50 Chief Complaint: ILLNESS Stated Complaint: WEAKNESS History of Present Illness The patient is a 86 year old male who presents to the Emergency Room with complaints of an improving altered mental status beginning this morning. He is a resident at [facility]. Per caregiver, the patient appeared to be a little "disoriented" today while receiving his morning medications. She notes that the patient had an episode of incontinence this morning which is abnormal for him. She adds that the patient's hands and feet appeared slightly purple, cold and swollen this morning as well. The patient was seen by his primary care office today for similar symptoms and was referred to the ED for further evaluation. He denies any abdominal pain. He has no complaints. Source of History: patient, caregiver Onset: This morning Quality: other (altered mental status) Timing: other (improving) Associated Symptoms: No abdominal pain Note: Additional symptoms: incontinence, and the patient's hands and feet appearing slightly purple, cold and swollen. Review of Systems See HPI for pertinent positives & negatives. A total of 10 systems reviewed and were otherwise negative. Past Medical & Surgical Medical Problems: (1) ABDOM AORTIC ANEURYSM (2) Altered mental status (3) Anemia (4) ATRIAL FIBRILLATION (5) Benign hypertension (6) Bronchiectasis (7) Carotid artery stenosis (8) Degeneration of cervical intervertebral disc (9) DIAB W NEURO MANIFEST, TYPE II OR UNSPEC TYPE, NOT UNCNTRLD (10) Diabetic peripheral neuropathy (11) Dyslipidemia (12) Dysphagia (13) FX C2 VERTEBRA-CLOSED (14) FX C5 VERTEBRA-CLOSED (15) FX C6 VERTEBRA-CLOSED (16) Gastroesophageal reflux disease (17) Helicobacter pylori gastrointestinal tract infection (18) Influenza A (19) Inguinal hernia (20) Peptic ulcer (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,& CEREBRAL INFARCTION W/OUT RES DEFICITS (22) PNA (pneumonia) (23) Proteinuria (24) SBO (small bowel obstruction) (25) Sepsis (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 (27) Vitamin B12 deficiency (non anemic) (28) Vitamin D deficiency Family History Omitted due to advanced age Social History Smoking Status: Unknown if Ever Smoked Alcohol Use: none Drug Use: none Marital Status: single, other Occupation Status: disabled Current/Historical Medications Scheduled Cholecalciferol (Vitamin D3), 1 CAP PO DAILY Ciprofloxacin Hcl (Cipro), 1 TAB PO BID Diclofenac Sodium (Topical) (Voltaren 1% Top Gel), 1 APPLN TOP BID Esomeprazole Magnesium (Nexium), 40 MG PO QAM Gabapentin (Neurontin), 800 MG PO TID Metoprolol Tartrate (Lopressor), 25 MG PO BID Multivitamin (Multivitamin), 1 TAB PO QAM Nutritional Supplements (Ensure High Protein), 8 OZ PO DAILY Polyethylene Glycol 3350 (Miralax), 17 GM PO QAM Sennosides-Docusate Sodium (Senna S), 1 TAB PO BID Simvastatin (Simvastatin), 20 MG PO QPM Scheduled PRN Baclofen (Baclofen), 10 MG PO BID PRN for Headache Glimepiride (Glimepiride), 1 TAB PO QAM PRN for BSG >200 Tramadol (Ultram), 50 MG PO BID PRN for Pain Allergies Coded Allergies: No Known Allergies (Verified , 10/09/17) Physical Exam Vital Signs Date Time Temp Pulse Resp B/P (MAP) Pulse Ox O2 Delivery O2 Flow Rate FiO2 10/09/17 14:23 84 20 118/57 95 Room Air 10/09/17 13:16 71 126/70 82 111/68 88 94/62 10/09/17 13:00 80 10/09/17 12:49 36.6 75 20 113/62 94 Room Air 10/09/17 12:44 96 Room Air Physical Exam GENERAL: Awake, alert, cachectic-appearing, in no acute distress HENT: Normocephalic, atraumatic. Oropharynx unremarkable. EYES: Normal conjunctiva. Sclera non-icteric. NECK: Supple. No nuchal rigidity. FROM. No JVD. RESPIRATORY: Clear to auscultation. CARDIAC: Regular rate, normal rhythm. Extremities warm and well perfused. Pulses equal. ABDOMEN: Soft, non-distended. No tenderness to palpation. No rebound or guarding. No masses. RECTAL: Deferred. MUSCULOSKELETAL: Chest examination reveals no tenderness. The back is symmetrical on inspection without obvious abnormality. There is no CVA tenderness to palpation. No joint edema. LOWER EXTREMITIES: Calves are equal size bilaterally and non-tender. No edema. No discoloration. NEURO: Normal sensorium. No sensory or motor deficits noted. SKIN: No rash or jaundice noted. Medical Decision & Procedures ER Provider Diagnostic Interpretation: Radiology results as stated below per my review and radiologist interpretation: HEAD WITHOUT CONTRAST (CT) Findings: The paranasal sinuses and mastoid air cells are clear. Pre-existing findings of diffuse encephalomalacia of the left and to lesser extent right cerebral hemisphere. Mild compensatory prominence of the ventricular system. Chronic: 40. Unchanging lucency over the left parietal bone. No evidence for acute intracranial hemorrhage. Impression: Chronic change. No acute process. The above report was generated using voice recognition software. It may contain grammatical, syntax or spelling errors. Electronically signed by: Thiago Kramer M.D. 10/09/2017 1:41 PM SINGLE VIEW CHEST FINDINGS: An AP, portable, upright chest radiograph is compared to study dated 12/27/2016. The examination is significantly degraded by portable technique and patient rotation. The heart is top normal for projection and there is atherosclerotic calcification of the thoracic aorta. The pulmonary vasculature is noncongested. Emphysema and chronic interstitial thickening are similar to previous. Foci of scarring/atelectasis are again seen throughout both lungs, greatest at the left lung base. There is no airspace consolidation typical for pneumonia or large pleural effusion. Apical scarring is observed. No pneumothorax is seen. The skeletal structures are osteopenic. Chronic posttraumatic deformity is seen in the left proximal humerus. Degenerative changes noted in the shoulders and thoracic spine. IMPRESSION: Emphysema and chronic changes as above. No acute cardiopulmonary abnormality is identified. Electronically signed by: Diony Valenzuela M.D. 10/09/2017 1:28 PM Laboratory Results 10/09/17 12:08 Red Blood Count 4.20, Mean Corpuscular Volume 99.0, Mean Corpuscular Hemoglobin 31.7, Mean Corpuscular Hemoglobin Concent 32.0, Mean Platelet Volume 10.2, Neutrophils (%) (Auto) 75.4, Lymphocytes (%) (Auto) 14.5, Monocytes (%) (Auto) 8.9, Eosinophils (%) (Auto) 0.6, Basophils (%) (Auto) 0.4, Neutrophils # (Auto) 7.04, Lymphocytes # (Auto) 1.35, Monocytes # (Auto) 0.83, Eosinophils # (Auto) 0.06, Basophils # (Auto) 0.04 10/09/17 12:08 Test 10/09/17 12:08 10/09/17 13:11 10/09/17 14:17 White Blood Count 9.34 K/uL (4.8-10.8) Red Blood Count 4.20 M/uL (4.7-6.1) Hemoglobin 13.3 g/dL (14.0-18.0) Hematocrit 41.6 % (42-52) Mean Corpuscular Volume 99.0 fL (80-100) Mean Corpuscular Hemoglobin 31.7 pg (25-34) Mean Corpuscular Hemoglobin Concent 32.0 g/dl (32-36) Platelet Count 189 K/uL (130-400) Mean Platelet Volume 10.2 fL (7.4-10.4) Neutrophils (%) (Auto) 75.4 % Lymphocytes (%) (Auto) 14.5 % Monocytes (%) (Auto) 8.9 % Eosinophils (%) (Auto) 0.6 % Basophils (%) (Auto) 0.4 % Neutrophils # (Auto) 7.04 K/uL (1.4-6.5) Lymphocytes # (Auto) 1.35 K/uL (1.2-3.4) Monocytes # (Auto) 0.83 K/uL (0.11-0.59) Eosinophils # (Auto) 0.06 K/uL (0-0.5) Basophils # (Auto) 0.04 K/uL (0-0.2) RDW Standard Deviation 52.8 fL (36.4-46.3) RDW Coefficient of Variation 14.6 % (11.5-14.5) Immature Granulocyte % (Auto) 0.2 % Immature Granulocyte # (Auto) 0.02 K/uL (0.00-0.02) Anion Gap 5.0 mmol/L (3-11) Estimated GFR () 55.5 Estimated GFR (Non- 47.9 BUN/Creatinine Ratio 28.1 (10-20) Calcium Level 9.4 mg/dl (8.5-10.1) Total Bilirubin 0.2 mg/dl (0.2-1) Direct Bilirubin mg/dl (0-0.2) Aspartate Amino Transf (AST/SGOT) 28 U/L (15-37) Alanine Aminotransferase (ALT/SGPT) 29 U/L (12-78) Alkaline Phosphatase 73 U/L (45-117) Total Creatine Kinase 130 U/L (39-308) Creatine Kinase MB 3.0 ng/ml (0.5-3.6) Creatine Kinase MB Ratio 2.3 (0-3.0) Troponin I < 0.015 ng/ml (0-0.045) Total Protein 7.4 gm/dl (6.4-8.2) Albumin 3.2 gm/dl (3.4-5.0) Thyroid Stimulating Hormone (TSH) 4.050 uIu/ml (0.300-4.500) Chemistry Specimen Hemolysis Influenza Type A Antigen Neg for Influ A (NEG) Influenza Type B Antigen Neg for Influ B (NEG) Urine Color DK YELLOW Urine Appearance CLOUDY (CLEAR) Urine pH 5.0 (4.5-7.5) Urine Specific [place] 1.018 (1.000-1.030) Urine Protein 2+ (NEG) Urine Glucose (UA) NEG (NEG) Urine Ketones NEG (NEG) Urine Occult Blood 1+ (NEG) Urine Nitrite NEG (NEG) Urine Bilirubin NEG (NEG) Urine Urobilinogen NEG (NEG) Urine Leukocyte Esterase MODERATE (NEG) Urine WBC (Auto) >30 /hpf (0-5) Urine RBC (Auto) 5-10 /hpf (0-4) Urine Hyaline Casts (Auto) 1-5 /lpf (0-5) Urine Epithelial Cells (Auto) 0-5 /lpf (0-5) Urine Bacteria (Auto) NEG (NEG) Labs reviewed by ED physician. Medications Administered Medications (Trade) Dose Ordered Sig/Kay Route Start Time Stop Time Status Last Admin Dose Admin Sodium Chloride 500 ml @ 999 mls/hr Q31M STAT IV 10/09/17 12:57 10/09/17 13:27 DC 10/09/17 13:14 999 MLS/HR Sodium Chloride 500 ml @ 999 mls/hr Q31M STAT IV 10/09/17 13:57 10/09/17 14:27 DC 10/09/17 14:20 999 MLS/HR Ceftriaxone Sodium (Rocephin Inj) 1 gm NOW STAT IV 10/09/17 14:43 10/09/17 14:45 DC 10/09/17 15:03 1 GM Ciprofloxacin (Cipro Tab) 500 mg NOW STAT PO 10/09/17 14:43 10/09/17 14:45 DC 10/09/17 15:03 500 MG ECG Per My Interpretation Indication: altered mental status Rate (beats per minute): 77 Rhythm: normal sinus Findings: other (Old inferior infarct. No ST elevations or depressions. ) ED Course 1252: Past medical records reviewed. The patient was evaluated in room A3. A complete history and physical examination was performed. 1257: Ordered Sodium Chloride 500 ml @ 999 mls/hr IV. 1350: Upon reexamination the patient is resting comfortably. I discussed results and treatment plan with the patient. He verbalizes agreement and understanding. The patient is ready for discharge. Medical Decision Differential diagnosis: Etiologies such as metabolic, infection, hypoglycemia, electrolyte abnormalities , cardiac sources, intracerebral event, toxicologic, neurologic, as well as others were entertained. This is an 86-year-old male who presents the emergency department over concerns of altered mental status today the patient has orthostatic hypotension. For this reason he was given multiple boluses of saline here in the emergency department. He does have blood in his urine and I will start him on Rocephin and Cipro pending a urine culture result. The rest of his laboratory work is noncontributory. His CAT scan of his head is unchanged from previous and the patient has a normal chest x-ray. Based on these findings I felt that the patient could be safely discharged. I will continue him on Cipro at home and encouraged him to increase his fluid intake over the next 48 hours. Caregiver was in agreement with the treatment plan. Medication Reconcilliation Current Medication List: was personally reviewed by me Blood Pressure Screening Patient's blood pressure: Normal blood pressure Blood pressure disposition: Did not require urgent referral Impression Primary Impression: Dehydration Additional Impression: UTI (urinary tract infection) Scribe Attestation The scribe's documentation has been prepared under my direction and personally reviewed by me in its entirety. I confirm that the note above accurately reflects all work, treatment, procedures, and medical decision making performed by me. Departure Information Dispostion Home / Self-Care Prescriptions Ciprofloxacin Hcl (CIPRO) 500 Mg Tab 1 TAB PO BID for 10 Days, #20 TAB Prov: Ramses Galindo MD 10/09/17 Referrals Monika Zabala, C.R.N.P. (PCP) Forms HOME CARE DOCUMENTATION FORM, IMPORTANT VISIT INFORMATION, WORK / SCHOOL INSTRUCTIONS Patient Instructions ED Dehydration, My [facility] Additional Instructions Increase fluids next 48 hours You have been examined and treated today on an emergency basis only. This is not a substitute for, or an effort to provide, complete comprehensive medical care. It is impossible to recognize and treat all injuries or illnesses in a single emergency department visit. It is therefore important that you follow up closely with your PCP. Call as soon as possible for an appointment. Thank you for your time and consideration. I look forward to speaking with you again soon. Please don't hesitate to call us if you have any questions. Problem Qualifiers Additional Impression: UTI (urinary tract infection) Urinary tract infection type: acute cystitis Hematuria presence: without hematuria Qualified Codes: N30.00 - Acute cystitis without hematuria
[2017-10-09 14:22] LABS: INFLUENZA B ANTIGEN Neg for Influ B (NEG)
[2017-10-09] MEDS ORDERED: CEFTRIAXONE SOD INJ 1 GM ADDVIAL IV STA (14:43)
[2017-10-09] MEDS ORDERED: CIPROFLOXACIN 500 MG TAB PO STA (14:43)
[2017-10-09] MEDS ORDERED: CIPR-255 PO (15:09)
[2017-10-09 16:24] VITALS: BP 122/76; PULSE 75; O2SAT 98
== END 2017-10-09 16:24 | disposition home or self-care (01) ==
LOC: EDBD 12:28 → C.EDA 12:29
DX: E86.0 Dehydration (principal); N30.00 Acute cystitis without hematuria; I95.1 Orthostatic hypotension; I48.91 Unspecified atrial fibrillation; I10 Essential (primary) hypertension; J47.9 Bronchiectasis, uncomplicated; E78.5 Hyperlipidemia, unspecified; K21.9 Gastro-esophageal reflux disease without esophagitis; Z87.01 Personal history of pneumonia (recurrent); K27.9 Peptic ulcer, site unspecified, unspecified as acute or chronic, without hemorrhage or perforation; E55.9 Vitamin D deficiency, unspecified; E53.8 Deficiency of other specified B group vitamins; E11.40 Type 2 diabetes mellitus with diabetic neuropathy, unspecified; M50.30 Other cervical disc degeneration, unspecified cervical region; I65.29 Occlusion and stenosis of unspecified carotid artery; Z79.899 Other long term (current) drug therapy

== ENCOUNTER 2017-10-29 21:58 | Inpatient (IN) | payer OTHER ==
[~2017-10-29] VITALS: Ht 160 cm; Wt 39.0 kg
[~2017-10-29 21:58] MED LIST changes: +CIPR-255 PO; -CIPR1TAB10 PO; +DICL1GEL12 TOP; +GABA800T PO; -NRN600 PO
[2017-10-29] MEDS ORDERED: SODIUM CHLORIDE 0.9% 1000ML 500 ML IV ONE (23:13)
[2017-10-29] MEDS ORDERED: PIPERACILLIN/TAZOBACTAM 4.5 GM/100ML D5W IV STA (23:13)
[2017-10-29] MEDS ORDERED: ACETAMINOPHEN 500 MG TAB PO STA (23:13)
[2017-10-29] MEDS ORDERED: VANCOMYCIN 1GM ED/ASU OMNICELL IV STA (23:13)
[2017-10-29] MEDS ORDERED: TRAM-10 PO (23:45)
[2017-10-29] MEDS ORDERED: TAMS0.4C38 PO (23:48)
[2017-10-29] MEDS ORDERED: FERR1TAB13 PO (23:50)
[2017-10-29] MEDS ORDERED: DUTA0.5C PO (23:52)
[2017-10-30] VITALS (10 sets, daily range): BP systolic 63–101; BP diastolic 41–59; PULSE 64–92; TEMP 36.3–36.9; O2SAT 91–99; Ht 160 cm; Wt 39.0 kg
[2017-10-30 00:14] LABS: HEMATOCRIT 41.9 % (42-52); HEMOGLOBIN 13.6 g/dL (14.0-18.0); MEAN CELL VOLUME 97.9 fL (80-100); MEAN CORPUSCULAR HEMOGLOBIN 31.8 pg (25-34); MEAN CORPUSCULAR HGB CONC 32.5 g/dl (32-36); MEAN PLATELET VOLUME 9.2 fL (7.4-10.4); PLATELET COUNT 125 K/uL (130-400); RED CELL DISTRIBUTION WIDTH CV 14.6 % (11.5-14.5); RED CELL DISTRIBUTION WIDTH SD 52.4 fL (36.4-46.3); WHITE BLOOD COUNT 8.02 K/uL (4.8-10.8)
[2017-10-30 00:31] LABS: ALBUMIN 2.7 gm/dl (3.4-5.0); ALT/SGPT 41 U/L (12-78); AST/SGOT 38 U/L (15-37); BLOOD UREA NITROGEN 31 mg/dl (7-18); CALCIUM 8.9 mg/dl (8.5-10.1); CARBON DIOXIDE 27 mmol/L (21-32); CREATININE 1.17 mg/dl (0.60-1.40); GLUCOSE 125 mg/dl (70-99); INR 0.9 (0.9-1.1); POTASSIUM 4.6 mmol/L (3.5-5.1); PTT PATIENT 25.5 SECONDS (21.0-31.0); SODIUM 137 mmol/L (136-145)
[2017-10-30 00:33] LABS: ALKALINE PHOSPHATASE 76 U/L (45-117); TOTAL PROTEIN 7.3 gm/dl (6.4-8.2)
[2017-10-30] MEDS ORDERED: ACETAMINOPHEN 325 MG SUPP PR STA (00:34)
[2017-10-30] MEDS ORDERED: SODIUM CHLORIDE 0.9% 500ML 500 ML IV STA (00:35)
[2017-10-30 00:48] LABS: BASO % 0.1 %; BASO ABS # 0.01 K/uL (0-0.2); IG# 0.02 K/uL (0.00-0.02); LYMPH % 12.6 %; LYMPH ABS # 1.01 K/uL (1.2-3.4); MONO ABS # 0.72 K/uL (0.11-0.59); NEUT % 78.1 %; NEUT ABS # 6.26 K/uL (1.4-6.5)
[2017-10-30 01:28] LABS: INFLUENZA A PCR Neg for Influ A (NEG); INFLUENZA B PCR Neg for Influ B (NEG)
[2017-10-30] MEDS ORDERED: VANCOMYCIN IV 1,000 MG in SODIUM CHLORIDE 0.9% 250ML 250 ML IV STA (01:39)
[2017-10-30] MEDS ORDERED: GLUCAGON FOR INJ 1 MG VIAL SQ PRN (01:45)
[2017-10-30] MEDS ORDERED: ONDANSETRON 8MG OD TAB PO PRN (01:45)
[2017-10-30] MEDS ORDERED: GLUCOSE 40% GEL 15 GM TUBE PO PRN (01:45)
[2017-10-30] MEDS ORDERED: TRAMADOL HCL 50 MG TAB PO PRN (01:45)
[2017-10-30] MEDS ORDERED: VANCOMYCIN CONSULT ACTIVE PRN (01:45)
[2017-10-30] MEDS ORDERED: PIPERACILL/TAZOBAC CONSULT ACTIVE PRN (01:45)
[2017-10-30] MEDS ORDERED: GLUCOSE 10 TABS/TUBE PO PRN (01:45)
[2017-10-30] MEDS ORDERED: DEXTROSE 50% 50 ML SYR IV PRN (01:45)
[2017-10-30] MEDS ORDERED: ACETAMINOPHEN 325 MG TAB PO PRN (01:45)
[2017-10-30] MEDS ORDERED: BACLOFEN 10 MG TAB PO PRN (01:45)
[2017-10-30] MEDS: PIPERACILL/TAZOBAC IV 3.375 GM in DEXTROSE 5% 100ML 100 ML IV SCH ×3 (03:40→19:35)
--- NOTE | 2017-10-30 06:20 | History and Physical ---
History & Physical Date & Time of Service: Oct 30, 2017 at 06:14 Chief Complaint: Altered Mental Status, Uti Primary Care Physician: Monika Zabala C.R.NDariuszPDariusz History of Present Illness Source: caregiver, hospital records The patient is an 86-year-old non-communicating resident of [facility], with his caregiver present, who reportedly has had an alteration in mental status and a cough. The caregiver also reports that he frequently gets urinary tract infections. The patient himself was unable to contribute to the HPI due to his baseline and altered mental status. Past Medical/Surgical History Medical Problems: (1) ABDOM AORTIC ANEURYSM (2) Acute renal failure (3) Altered mental status (4) Anemia (5) ATRIAL FIBRILLATION (6) Benign hypertension (7) Bronchiectasis (8) Carotid artery stenosis (9) Degeneration of cervical intervertebral disc (10) Dehydration (11) DIAB W NEURO MANIFEST, TYPE II OR UNSPEC TYPE, NOT UNCNTRLD (12) Diabetic peripheral neuropathy (13) Dyslipidemia (14) Dysphagia (15) FX C2 VERTEBRA-CLOSED (16) FX C5 VERTEBRA-CLOSED (17) FX C6 VERTEBRA-CLOSED (18) Gastroesophageal reflux disease (19) Helicobacter pylori gastrointestinal tract infection (20) Humeral fracture (21) Hypokalemia (22) Hypoxia (23) Influenza A (24) Inguinal hernia (25) Left humeral fracture (26) Left inguinal hernia (27) Peptic ulcer (28) PERSONAL HX OF TIA,& CEREBRAL INFARCTION W/OUT RES DEFICITS (29) PNA (pneumonia) (30) Pneumonia (31) Pneumonia involving left lung (32) Proteinuria (33) SBO (small bowel obstruction) (34) Sepsis (35) Small bowel obstruction (36) Spasmodic torticollis (37) UTI (urinary tract infection) (38) UTI (urinary tract infection) (39) UTI (urinary tract infection) (40) Vitamin B12 deficiency (non anemic) (41) Vitamin D deficiency (42) Vomiting (43) Vomiting and diarrhea (44) Weakness Family History Omitted due to advanced age Social History Smoking Status: Former Smoker Smokeless Tobacco Use: No Alcohol Use: none Drug Use: none Marital Status: single, other Housing status: assisted living Occupational Status: disabled Immunizations History of Influenza Vaccine: Yes Influenza Vaccine Date: Jun 03, 2012 History of Tetanus Vaccine?: Unknown History of Pneumococcal: Yes History of Hepatitis B Vaccine: Unknown Allergies Coded Allergies: No Known Allergies (Verified , 10/29/17) Home Medications Scheduled Cholecalciferol (Vitamin D3), 1 CAP PO DAILY Dutasteride (Avodart), 0.5 MG PO DAILY Esomeprazole Magnesium (Nexium), 40 MG PO QAM Ferrous Sulfate (Kp Ferrous Sulfate), 325 MG PO DAILY Gabapentin (Neurontin), 800 MG PO TID Metoprolol Tartrate (Lopressor), 25 MG PO BID Multivitamin (Multivitamin), 1 TAB PO QAM Nutritional Supplements (Ensure High Protein), 8 OZ PO DAILY Polyethylene Glycol 3350 (Miralax), 17 GM PO QAM Sennosides-Docusate Sodium (Senna S), 1 TAB PO BID Simvastatin (Simvastatin), 20 MG PO QPM Tamsulosin Hcl (Flomax), 0.4 MG PO HS Scheduled PRN Baclofen (Baclofen), 10 MG PO BID PRN for Headache Glimepiride (Glimepiride), 1 TAB PO QAM PRN for BSG >200 Tramadol (Ultram), 50 MG PO Q4H PRN for Pain Review of Systems Review of systems is unable to be obtained directly from the patient, but caregiver reports that he was in his usual state of health until the past 24-48 hours. Physical Exam Vital Signs Date Time Temp Pulse Resp B/P (MAP) Pulse Ox O2 Delivery O2 Flow Rate FiO2 10/30/17 04:03 86 86/50 (62) 10/30/17 02:54 36.4 92 16 92/56 95 Nasal Cannula 4.0 10/30/17 02:08 37.7 94 16 79/51 88 10/30/17 01:55 94 16 79/51 88 Nasal Cannula 4.0 10/30/17 01:37 93 79/45 93 Nasal Cannula 4.0 10/30/17 01:10 89 20 92/47 92 Nasal Cannula 2.0 10/30/17 00:34 92 20 89/47 93 Nasal Cannula 2.0 10/30/17 00:00 93 Nasal Cannula 2.0 10/29/17 22:31 84 10/29/17 22:07 37.7 82 20 98/64 Room Air The patient is awake and alert, normocephalic and atraumatic, sitting upright in bed, leaning to the left, and in no acute distress. HEENT--PERRL, EOMI, mucous membranes and oropharynx dry. Neck--supple. No JVD. No bruits. Thyroid normal, trachea midline, no adenopathy. Heart--normal S1 and S2. No murmurs, rubs or gallops. Lungs--coarse rhonchi bilaterally, no respiratory distress, no accessory muscle use. Abdomen--normal bowel sounds and soft. Nontender. Nondistended, no hernias or masses, no organomegaly. Extremities--no cyanosis or clubbing. No edema. There are good distal pulses b/ l. Dermatologic--normal skin turgor, normal color, no abnormal lymph nodes, no rash. Neurologic--cranial nerves II through XII grossly intact. Rheumatologic--normal range of motion. Psychiatric--pleasant Diagnostics Laboratory Results Results Past 24 Hours Test 10/30/17 00:00 10/30/17 00:01 10/30/17 00:10 10/30/17 00:30 Range/Units White Blood Count 8.02 4.8-10.8 K/uL Red Blood Count 4.28 4.7-6.1 M/uL Hemoglobin 13.6 14.0-18.0 g/dL Hematocrit 41.9 42-52 % Mean Corpuscular Volume 97.9 80-100 fL Mean Corpuscular Hemoglobin 31.8 25-34 pg Mean Corpuscular Hemoglobin Concent 32.5 32-36 g/dl Platelet Count 125 130-400 K/uL Mean Platelet Volume 9.2 7.4-10.4 fL Neutrophils (%) (Auto) 78.1 % Lymphocytes (%) (Auto) 12.6 % Monocytes (%) (Auto) 9.0 % Eosinophils (%) (Auto) 0.0 % Basophils (%) (Auto) 0.1 % Neutrophils # (Auto) 6.26 1.4-6.5 K/uL Lymphocytes # (Auto) 1.01 1.2-3.4 K/uL Monocytes # (Auto) 0.72 0.11-0.59 K/uL Eosinophils # (Auto) 0.00 0-0.5 K/uL Basophils # (Auto) 0.01 0-0.2 K/uL RDW Standard Deviation 52.4 36.4-46.3 fL RDW Coefficient of Variation 14.6 11.5-14.5 % Immature Granulocyte % (Auto) 0.2 % Immature Granulocyte # (Auto) 0.02 0.00-0.02 K/uL Prothrombin Time 9.7 9.0-12.0 SECONDS Prothromb Time International Ratio 0.9 0.9-1.1 Activated Partial Thromboplast Time 25.5 21.0-31.0 SECONDS Partial Thromboplastin Ratio 1.0 Sodium Level 137 136-145 mmol/L Potassium Level 4.6 3.5-5.1 mmol/L Chloride Level 103 98-107 mmol/L Carbon Dioxide Level 27 21-32 mmol/L Anion Gap 7.0 3-11 mmol/L Blood Urea Nitrogen 31 7-18 mg/dl Creatinine 1.17 0.60-1.40 mg/dl Estimated GFR () 66.0 Estimated GFR (Non- 56.9 BUN/Creatinine Ratio 26.3 10-20 Random Glucose 125 70-99 mg/dl Calcium Level 8.9 8.5-10.1 mg/dl Total Bilirubin 0.4 0.2-1 mg/dl Aspartate Amino Transf (AST/SGOT) 38 15-37 U/L Alanine Aminotransferase (ALT/SGPT) 41 12-78 U/L Alkaline Phosphatase 76 45-117 U/L Total Protein 7.3 6.4-8.2 gm/dl Albumin 2.7 3.4-5.0 gm/dl Globulin 4.6 2.5-4.0 gm/dl Albumin/Globulin Ratio 0.6 0.9-2 Bedside Lactic Acid Venous 1.09 0.90-1.70 mmol/L Influenza Type A (RT-PCR) Neg for Influ A NEG Influenza Type B (RT-PCR) Neg for Influ B NEG Urine Color DK YELLOW Urine Appearance CLOUDY CLEAR Urine pH 5.0 4.5-7.5 Urine Specific [place] 1.018 1.000-1.030 Urine Protein 1+ NEG Urine Glucose (UA) NEG NEG Urine Ketones TRACE NEG Urine Occult Blood TRACE NEG Urine Nitrite NEG NEG Urine Bilirubin NEG NEG Urine Urobilinogen NEG NEG Urine Leukocyte Esterase MODERATE NEG Urine WBC (Auto) >30 0-5 /hpf Urine RBC (Auto) 5-10 0-4 /hpf Urine Hyaline Casts (Auto) 1-5 0-5 /lpf Urine Epithelial Cells (Auto) 0-5 0-5 /lpf Urine Bacteria (Auto) NEG NEG Microbiology Results 10/30/17 Blood Culture, Received Pending 10/30/17 Blood Culture, Received Pending 10/30/17 MRSA DNA Surveillance Screen - Final, Complete Specimen Negative for MRSA by DNA Probe 10/30/17 Urine Culture, Received Pending Impression Assessment and Plan Altered mental status secondary to UTI and early left lower lobe pneumonia-- Continue vancomycin and Zosyn IV begun in the ED. Speech therapy assessment for possible aspiration. Follow urine culture and sensitivity. Hypertension-- Continue metoprolol tartrate 25 mg p.o. twice daily. BPH-- Continue tamsulosin 0.4 mg p.o. at bedtime and Avodart 0.5 mg p.o. daily. Diabetes mellitus-- Hold glimepiride. Placed on Accu-Cheks before meals and at bedtime with NovoLog coverage per scale. Hyperlipidemia-- continue simvastatin 20 mg p.o. in the evening. GERD--change Nexium to pantoprazole 40 mg daily. Peripheral neuropathy-- Continue gabapentin 800 mg p.o. 3 times daily. Advanced Directives Existing Living Will: No Existing Power of Global Marketing Coordinator: Yes Resuscitation Status VTE Prophylaxis Will order VTE Prophylaxis: Yes Social Service Consult Lives in Personal Care (Saisei)
--- NOTE | 2017-10-30 07:20 | DIAGNOSTIC IMAGING REPORT ---
CHEST ONE VIEW PORTABLE CLINICAL HISTORY: 86 years-old Male presenting with Sepsis. TECHNIQUE: Portable upright AP view of the chest was obtained. COMPARISON: 10/09/2017. FINDINGS: The patient is BARAKAT rotated. Atherosclerosis of the aortic arch. Cardiac silhouettes top normal in size allowing for rotation. Persistent heterogeneity of lung parenchyma with relative radiodensity in the right upper lung. The right lung is hyperinflated. Bandlike opacities in the left mid lung. Partial obscuration of the left hemidiaphragm, stable to slightly increased from prior. Blunting of the costophrenic angles could be due to hyperinflation on the right but may indicate a small pleural effusion on the left. Chronic deformity of the left humeral head. Osteopenia suspected. Upper abdomen normal. IMPRESSION: 1. No significant change from the prior exam though there may be slightly decreased aeration of the left lung base. 2. Heterogeneity of lung parenchyma suggests underlying emphysema. 3. Relative radiodensity of the right upper lung is somewhat unexpected in the setting of emphysema, which should demonstrated the greatest degree of radiolucency. Superimposed infection in this region is difficult to exclude. This relative radiodensity appears to be new since November but has not significantly changed since September. The report will be called/faxed according to standard departmental protocol. Electronically signed by: Shane Rivas M.D. 10/30/2017 7:19 AM Dictated Date/Time: 10/30/2017 7:16 AM
[2017-10-30] MEDS: PANTOprazole SOD 40 MG TAB PO SCH (07:51)
[2017-10-30] MEDS: DOCUSATE SODIUM/SENNA 50/8.6MG TAB PO SCH ×2 (07:52→21:27)
[2017-10-30] MEDS: FERROUS SULFATE 325 MG TAB PO SCH (07:52)
[2017-10-30] MEDS: MULTIVITAMIN TAB PO SCH (07:52)
[2017-10-30] MEDS: CHOLECALCIFEROL 1000 INTER.UNIT TAB PO SCH (07:52)
[2017-10-30] MEDS: GABAPENTIN 800 MG TAB PO SCH ×3 (07:53→21:27)
[2017-10-30] MEDS: AVODART~ORDER AWAITING ACTION SCH ×2 (07:54→14:34)
[2017-10-30] MEDS: METOPROLOL TARTRATE 25 MG TAB PO SCH (07:59)
[2017-10-30] MEDS: HEPARIN SOD 5000 UNIT/0.5 ML CARP SQ SCH ×2 (08:00→21:28)
[2017-10-30] MEDS: POLYETHYLENE (MIRALAX) 17 GM PACK PO SCH (08:11)
[2017-10-30] MEDS: INSULIN ASPART 100 UNITS/ML 3 ML PEN SC SCH ×4 (09:01→21:00)
[2017-10-30] MEDS: BOOST PLUS VANILLA PO SCH (12:06)
--- NOTE | 2017-10-30 14:55 | Hospitalist Progress Note ---
Hospitalist Progress Note Date of Service Oct 30, 2017. (Dannielle Payne PA-C) Subjective Pt evaluation today including: conversation w/ patient, physical exam, chart review, lab review, review of studies Pain: none PO Intake: poor Voiding: no voiding problems The patient was seen and examined this morning. Pt reports feeling tired today, but denies any complaints of pain or shortness of breath at rest. No fever, chills or sweats. He is able to answer all of my questions without difficulty. He states normally does not need to wear oxygen, and ambulates on his own with a cane. ROS: 6 point ROS reviewed and otherwise negative. (Dannielle Payne PA-C) Objective Vital Signs Date Time Temp Pulse Resp B/P (MAP) Pulse Ox O2 Delivery O2 Flow Rate FiO2 10/30/17 11:07 97 Nasal Cannula 2.0 10/30/17 08:00 99 Nasal Cannula 3.0 10/30/17 07:37 36.5 81 18 101/56 (71) 99 Room Air 10/30/17 04:03 86 86/50 (62) 10/30/17 02:54 36.4 92 16 92/56 95 Nasal Cannula 4.0 10/30/17 02:08 37.7 94 16 79/51 88 10/30/17 01:55 94 16 79/51 88 Nasal Cannula 4.0 10/30/17 01:37 93 79/45 93 Nasal Cannula 4.0 10/30/17 01:10 89 20 92/47 92 Nasal Cannula 2.0 10/30/17 00:34 92 20 89/47 93 Nasal Cannula 2.0 10/30/17 00:00 93 Nasal Cannula 2.0 10/29/17 22:31 84 10/29/17 22:07 37.7 82 20 98/64 Room Air (Dannielle Payne PA-C) Physical Exam General Appearance: WD/WN, no apparent distress, + thin, + pertinent finding ( frail) Eyes: PERRL, EOMI ENT: hearing grossly normal, pharynx normal Neck: supple, no JVD Respiratory/Chest: no respiratory distress, no accessory muscle use, + pertinent finding (on 3L, breath sounds diminished bilaterally, +crackles bibasilarly. ) Cardiovascular: regular rate, rhythm, no murmur Abdomen: normal bowel sounds, non tender, soft Extremities: non-tender, no pedal edema, no calf tenderness Neurologic/Psychiatric: alert, + pertinent finding (oriented to place and self , not time, answers all questions without difficulty. ) Skin: normal color, warm/dry (Dannielle Payne, JEFFREY) Laboratory Results Last 24 Hours Test 10/30/17 00:00 10/30/17 00:01 10/30/17 00:10 10/30/17 00:30 White Blood Count 8.02 K/uL Red Blood Count 4.28 M/uL Hemoglobin 13.6 g/dL Hematocrit 41.9 % Mean Corpuscular Volume 97.9 fL Mean Corpuscular Hemoglobin 31.8 pg Mean Corpuscular Hemoglobin Concent 32.5 g/dl Platelet Count 125 K/uL Mean Platelet Volume 9.2 fL Neutrophils (%) (Auto) 78.1 % Lymphocytes (%) (Auto) 12.6 % Monocytes (%) (Auto) 9.0 % Eosinophils (%) (Auto) 0.0 % Basophils (%) (Auto) 0.1 % Neutrophils # (Auto) 6.26 K/uL Lymphocytes # (Auto) 1.01 K/uL Monocytes # (Auto) 0.72 K/uL Eosinophils # (Auto) 0.00 K/uL Basophils # (Auto) 0.01 K/uL RDW Standard Deviation 52.4 fL RDW Coefficient of Variation 14.6 % Immature Granulocyte % (Auto) 0.2 % Immature Granulocyte # (Auto) 0.02 K/uL Prothrombin Time 9.7 SECONDS Prothromb Time International Ratio 0.9 Activated Partial Thromboplast Time 25.5 SECONDS Partial Thromboplastin Ratio 1.0 Sodium Level 137 mmol/L Potassium Level 4.6 mmol/L Chloride Level 103 mmol/L Carbon Dioxide Level 27 mmol/L Anion Gap 7.0 mmol/L Blood Urea Nitrogen 31 mg/dl Creatinine 1.17 mg/dl Estimated GFR () 66.0 Estimated GFR (Non- 56.9 BUN/Creatinine Ratio 26.3 Random Glucose 125 mg/dl Calcium Level 8.9 mg/dl Total Bilirubin 0.4 mg/dl Aspartate Amino Transf (AST/SGOT) 38 U/L Alanine Aminotransferase (ALT/SGPT) 41 U/L Alkaline Phosphatase 76 U/L Total Protein 7.3 gm/dl Albumin 2.7 gm/dl Globulin 4.6 gm/dl Albumin/Globulin Ratio 0.6 Bedside Lactic Acid Venous 1.09 mmol/L Influenza Type A (RT-PCR) Neg for Influ A Influenza Type B (RT-PCR) Neg for Influ B Urine Color DK YELLOW Urine Appearance CLOUDY Urine pH 5.0 Urine Specific [place] 1.018 Urine Protein 1+ Urine Glucose (UA) NEG Urine Ketones TRACE Urine Occult Blood TRACE Urine Nitrite NEG Urine Bilirubin NEG Urine Urobilinogen NEG Urine Leukocyte Esterase MODERATE Urine WBC (Auto) >30 /hpf Urine RBC (Auto) 5-10 /hpf Urine Hyaline Casts (Auto) 1-5 /lpf Urine Epithelial Cells (Auto) 0-5 /lpf Urine Bacteria (Auto) NEG Test 10/30/17 08:02 10/30/17 11:55 Bedside Glucose 129 mg/dl 116 mg/dl (Dannielle Payne, PADreC) Assessment and Plan 86 yo M with UTI and early left lower lobe pneumonia Sepsis secondary to the above Metabolic encephalopathy - Stop vanc at this time - continue Zosyn IV (started 10/30) - pt able to answer all questions appropriately - appears hx of UTI was when he had an indwelling catheter, however no longer has one. - Speech therapy assessment for possible aspiration. - Follow urine culture and sensitivity. - No leukocytosis, Tmax 37.7 overnight Hypertension-- - Hold metoprolol tartrate 25 mg BID with borderline hypotension - Pt s/p 2 L NSS bolus - not on maintenance fluids - encourage po intake today. Will give pt an extra bolus of NSS 250 mL wide open for BP of 80s/60s, and follow with NSS at 100mL/hr with poor oral intake this afternoon. BPH-- Continue tamsulosin 0.4 mg p.o. at bedtime and Avodart 0.5 mg p.o. daily. Diabetes mellitus-- Hold glimepiride. Placed on Accu-Cheks achs and ISS Hyperlipidemia-- continue simvastatin 20 mg p.o. in the evening. GERD--change Nexium to pantoprazole 40 mg daily. Peripheral neuropathy-- Continue gabapentin 800 mg p.o. 3 times daily. DVT ppx: heparin subq CODE: FULL Disposition: Resident of [facility], to assist with dc planning, possible in 2days. (Dannielle Payne, RONIC) Reviewed: Pt Seen/Exam by Me (Marce English, ) History Pt is tired. No other concerns at this time. Tolerating PO without issue. Denies chest pain, SOB. Agree with HPI/ROS as noted by PA. (Marce English, ) General Appearance: no apparent distress, thin Eye Exam: bilateral eye normal inspection, bilateral eye other (nml sclera) Respiratory: normal breath sounds, no respiratory distress Cardiovascular: normal peripheral pulses, regular rate, rhythm Gastrointestinal: non tender, soft Extremities: non-tender, no pedal edema Neurologic/Psychiatric: alert, other (pleasant) Skin Characteristics: warm/dry, pallor (Marce English, ) Assessment/Plan Agree with plan as outlined above PNA/UTI Vanc/zosyn Cx pending HypoTN throughout the day Given body habitus, I suspect pt runs lower at baseline Asx with this Bolus + maintenance Resident of [facility] (Marce English, DO)
--- NOTE | 2017-10-30 15:02 | EMERGENCY ROOM VISIT NOTE ---
History Report prepared by Arron: Fei Beltran Under the Supervision of: Dr. Diony Austin M.D. First contact with patient: 23:08 Chief Complaint: ILLNESS Stated Complaint: FEVER, UNABLE TO VOID History of Present Illness The patient is an 86 year old male who presents to the Emergency Room with complaints of a constant fever beginning today. The patient is a resident at [facility]. Per caregiver, the patient has had difficulty with urination , fever, and a productive cough for the last three days. She notes that the patient's fever was 99.7 earlier today and then 100.7 later tonight. She reports that the patient has also not wanted to get out of bed and has not eaten much which is unusual. She states that the patient does not wear oxygen at home. She notes that the patient has had 3-4 UTIs within the last month. She reports that the patient's housemates may have a cold. 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 Source of History: caregiver, nursing staff Onset: today Position: other (global) Symptom Intensity: 100.7 Quality: other (fever) Associated Symptoms: + cough (productive), + urinary symptoms (difficulty urinating) Note: Per rebeamer, the patient has also not wanted to get out of bed or eat. Review of Systems See HPI for pertinent positives & negatives. A total of 10 systems reviewed and were otherwise negative. Past Medical & Surgical Medical Problems: (1) ABDOM AORTIC ANEURYSM (2) Altered mental status (3) Anemia (4) ATRIAL FIBRILLATION (5) Benign hypertension (6) Bronchiectasis (7) Carotid artery stenosis (8) Degeneration of cervical intervertebral disc (9) DIAB W NEURO MANIFEST, TYPE II OR UNSPEC TYPE, NOT UNCNTRLD (10) Diabetic peripheral neuropathy (11) Dyslipidemia (12) Dysphagia (13) FX C2 VERTEBRA-CLOSED (14) FX C5 VERTEBRA-CLOSED (15) FX C6 VERTEBRA-CLOSED (16) Gastroesophageal reflux disease (17) Helicobacter pylori gastrointestinal tract infection (18) Influenza A (19) Inguinal hernia (20) Peptic ulcer (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,& CEREBRAL INFARCTION W/OUT RES DEFICITS (22) PNA (pneumonia) (23) Proteinuria (24) SBO (small bowel obstruction) (25) Sepsis (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 (27) Vitamin B12 deficiency (non anemic) (28) Vitamin D deficiency Family History Omitted due to advanced age Social History Smoking Status: Unknown if Ever Smoked Alcohol Use: none Drug Use: none Marital Status: single Housing Status: assisted living Occupation Status: retired, disabled Current/Historical Medications Scheduled Cholecalciferol (Vitamin D3), 1 CAP PO DAILY Dutasteride (Avodart), 0.5 MG PO DAILY Esomeprazole Magnesium (Nexium), 40 MG PO QAM Ferrous Sulfate (Kp Ferrous Sulfate), 325 MG PO DAILY Gabapentin (Neurontin), 800 MG PO TID Metoprolol Tartrate (Lopressor), 25 MG PO BID Multivitamin (Multivitamin), 1 TAB PO QAM Nutritional Supplements (Ensure High Protein), 8 OZ PO DAILY Polyethylene Glycol 3350 (Miralax), 17 GM PO QAM Sennosides-Docusate Sodium (Senna S), 1 TAB PO BID Simvastatin (Simvastatin), 20 MG PO QPM Tamsulosin Hcl (Flomax), 0.4 MG PO HS Scheduled PRN Baclofen (Baclofen), 10 MG PO BID PRN for Headache Glimepiride (Glimepiride), 1 TAB PO QAM PRN for BSG >200 Tramadol (Ultram), 50 MG PO Q4H PRN for Pain Allergies Coded Allergies: No Known Allergies (Verified , 10/29/17) Physical Exam Vital Signs Date Time Temp Pulse Resp B/P (MAP) Pulse Ox O2 Delivery O2 Flow Rate FiO2 10/30/17 01:10 89 20 92/47 92 Nasal Cannula 2.0 10/30/17 00:34 92 20 89/47 93 Nasal Cannula 2.0 10/30/17 00:00 93 Nasal Cannula 2.0 10/29/17 22:31 84 10/29/17 22:07 37.7 82 20 98/64 Room Air Physical Exam GENERAL: Patient is in no acute distress. HEENT: No acute trauma, normocephalic atraumatic, mucous membranes moist, no nasal congestion, no scleral icterus. NECK: No stridor, no adenopathy, no meningismus, trachea is midline. LUNGS: Rhonchi heard on left, no wheezing, breath sounds equal bilaterally, no respiratory distress. HEART: Without murmurs gallops or rubs, regular rate and rhythm. ABDOMEN: Soft, nontender, bowel sounds positive, no hernias, no peritonitis. EXTREMITIES: No cyanosis or edema, full range of motion of all the joints without pain or difficulty, no signs for acute trauma. NEUROLOGIC: Awake, alert, moving all extremities, MR noted. GROIN: Not circumcised, no scrotal or penile cellulitis. SKIN: No rash, no jaundice, no diaphoresis, warm to touch. Medical Decision & Procedures ER Provider Diagnostic Interpretation: Radiology results as stated below per my review and radiologist interpretation: CHEST X-RAY: Chronic changes to left lung and left lung base. No heart failure. No pneumothorax. No obvious new pneumonia. Laboratory Results 10/30/17 00:00 Red Blood Count 4.28, Mean Corpuscular Volume 97.9, Mean Corpuscular Hemoglobin 31.8, Mean Corpuscular Hemoglobin Concent 32.5, Mean Platelet Volume 9.2, Neutrophils (%) (Auto) 78.1, Lymphocytes (%) (Auto) 12.6, Monocytes (%) (Auto) 9.0, Eosinophils (%) (Auto) 0.0, Basophils (%) (Auto) 0.1, Neutrophils # (Auto) 6.26, Lymphocytes # (Auto) 1.01, Monocytes # (Auto) 0.72, Eosinophils # (Auto) 0.00, Basophils # (Auto) 0.01 10/30/17 00:00 Test 10/30/17 00:00 10/30/17 00:01 10/30/17 00:10 10/30/17 00:30 White Blood Count 8.02 K/uL (4.8-10.8) Red Blood Count 4.28 M/uL (4.7-6.1) Hemoglobin 13.6 g/dL (14.0-18.0) Hematocrit 41.9 % (42-52) Mean Corpuscular Volume 97.9 fL (80-100) Mean Corpuscular Hemoglobin 31.8 pg (25-34) Mean Corpuscular Hemoglobin Concent 32.5 g/dl (32-36) Platelet Count 125 K/uL (130-400) Mean Platelet Volume 9.2 fL (7.4-10.4) Neutrophils (%) (Auto) 78.1 % Lymphocytes (%) (Auto) 12.6 % Monocytes (%) (Auto) 9.0 % Eosinophils (%) (Auto) 0.0 % Basophils (%) (Auto) 0.1 % Neutrophils # (Auto) 6.26 K/uL (1.4-6.5) Lymphocytes # (Auto) 1.01 K/uL (1.2-3.4) Monocytes # (Auto) 0.72 K/uL (0.11-0.59) Eosinophils # (Auto) 0.00 K/uL (0-0.5) Basophils # (Auto) 0.01 K/uL (0-0.2) RDW Standard Deviation 52.4 fL (36.4-46.3) RDW Coefficient of Variation 14.6 % (11.5-14.5) Immature Granulocyte % (Auto) 0.2 % Immature Granulocyte # (Auto) 0.02 K/uL (0.00-0.02) Prothrombin Time 9.7 SECONDS (9.0-12.0) Prothromb Time International Ratio 0.9 (0.9-1.1) Activated Partial Thromboplast Time 25.5 SECONDS (21.0-31.0) Partial Thromboplastin Ratio 1.0 Anion Gap 7.0 mmol/L (3-11) Estimated GFR () 66.0 Estimated GFR (Non- 56.9 BUN/Creatinine Ratio 26.3 (10-20) Calcium Level 8.9 mg/dl (8.5-10.1) Total Bilirubin 0.4 mg/dl (0.2-1) Aspartate Amino Transf (AST/SGOT) 38 U/L (15-37) Alanine Aminotransferase (ALT/SGPT) 41 U/L (12-78) Alkaline Phosphatase 76 U/L (45-117) Total Protein 7.3 gm/dl (6.4-8.2) Albumin 2.7 gm/dl (3.4-5.0) Globulin 4.6 gm/dl (2.5-4.0) Albumin/Globulin Ratio 0.6 (0.9-2) Bedside Lactic Acid Venous 1.09 mmol/L (0.90-1.70) Influenza Type A (RT-PCR) Neg for Influ A (NEG) Influenza Type B (RT-PCR) Neg for Influ B (NEG) Urine Color DK YELLOW Urine Appearance CLOUDY (CLEAR) Urine pH 5.0 (4.5-7.5) Urine Specific [place] 1.018 (1.000-1.030) Urine Protein 1+ (NEG) Urine Glucose (UA) NEG (NEG) Urine Ketones TRACE (NEG) Urine Occult Blood TRACE (NEG) Urine Nitrite NEG (NEG) Urine Bilirubin NEG (NEG) Urine Urobilinogen NEG (NEG) Urine Leukocyte Esterase MODERATE (NEG) Urine WBC (Auto) >30 /hpf (0-5) Urine RBC (Auto) 5-10 /hpf (0-4) Urine Hyaline Casts (Auto) 1-5 /lpf (0-5) Urine Epithelial Cells (Auto) 0-5 /lpf (0-5) Urine Bacteria (Auto) NEG (NEG) Laboratory results reviewed by me. Medications Administered Medications (Trade) Dose Ordered Sig/Kay Route Start Time Stop Time Status Last Admin Dose Admin Sodium Chloride 500 ml @ 999 mls/hr Q31M ONCE IV 10/29/17 23:13 10/29/17 23:43 DC 10/29/17 23:13 999 MLS/HR Piperacillin Sod/ Tazobactam Sod (Zosyn Iv) 4.5 gm ONE STAT IV 10/29/17 23:13 10/29/17 23:16 DC 10/29/17 23:13 4.5 GM Vancomycin HCl (Vancomycin 1gm Ed/Asu Omnicell) 1 gm ONE STAT IV 10/29/17 23:13 10/29/17 23:16 DC 10/29/17 23:13 1 GM Acetaminophen (Tylenol Supp) 975 mg NOW STAT MD 10/30/17 00:34 10/30/17 00:35 DC 10/30/17 00:42 975 MG Sodium Chloride 500 ml @ 999 mls/hr Q31M STAT IV 10/30/17 00:35 10/30/17 01:05 DC 10/30/17 00:35 999 MLS/HR ECG Per My Interpretation Indication: SOB/dyspnea Rate (beats per minute): 92 Rhythm: normal sinus Findings: no ectopy, other (No ST elevation, no PVCs) ED Course 2308: The patient was evaluated in room B3. A complete history and physical exam was performed. 2313: Vancomycin HCl 1gm IV, Zosyn Iv 4.5gm IV, Sodium Chloride 500 ml @ 999 mls /hr IV 0033: I reevaluated and updated the patient. He was unable to swallow his Tylenol so we are going to give it to him rectally. 0034: Acetaminophen 975mg MD 0035: Sodium Chloride 500 ml @ 999 mls/hr IV 0104: Upon reexamination the patient is his. I discussed results and treatment plan with the patient. His rebeamer verbalizes agreement and understanding. I spoke with Dr. Patel of the [facility] Hospitalist service. We discussed the patient's results and findings. The patient will be evaluated by Dr. Patel for further management. Medical Decision Differential diagnoses include: sepsis, pneumonia, bronchitis, influenza, UTI, cellulitis, dehydration, and electrolyte abnormalities. There is no leukocytosis or concerning anemia. Lactic acid level is not elevated making sepsis less likely. Renal panel testing does not show any significant electrolyte abnormality or kidney failure. There is no hepatitis. Influenza testing is negative. Chest film shows some chronic change on the left , no obvious pneumonia. EKG shows a normal sinus rhythm, no acute ischemia. Urinalysis does suggest infection. Urine culture and blood cultures are pending. The patient received rectal Tylenol, IV saline, IV Zosyn and IV vancomycin. The patient presents with fever, weakness. He appears to have a urinary infection. He may have early sepsis. I do think a hospital stay is warranted. I spoke to the patient and to the staff worker with him. The on-call hospitalist was consulted and we discussed the case. Case management has been involved. Medication Reconcilliation Current Medication List: was personally reviewed by me Blood Pressure Screening Patient's blood pressure: Low blood pressure Low blood pressure will be monitored by hospitalist. Consults Time Called: 101 Consulting Physician: Dr. Patel - Hospitalist, [facility] Returned Call: [phone] Discussed the patient's case. The patient will be evaluated for further management. Impression Primary Impression: UTI (urinary tract infection) Additional Impressions: Weakness Fever Hypotension Scribe Attestation The scribe's documentation has been prepared under my direction and personally reviewed by me in its entirety. I confirm that the note above accurately reflects all work, treatment, procedures, and medical decision making performed by me. Departure Information Dispostion Being Evaluated By Hospitalist Referrals Monika Zabala, C.R.N.P. (PCP) Patient Instructions [facility] Problem Qualifiers
[2017-10-30] MEDS ORDERED: SODIUM CHLORIDE 0.9% 250ML 250 ML IV STA (15:12)
[2017-10-30] MEDS: SODIUM CHLORIDE 0.9% 1000ML 1,000 ML IV SCH (15:21)
[2017-10-30] MEDS ORDERED: NURSING VERBAL MED ORDER STA (16:54)
[2017-10-30] MEDS ORDERED: SODIUM CHLORIDE 0.9% 500ML 500 ML IV SCH (17:00)
[2017-10-30] MEDS: BOOST BREEZE NUTRITION DRINK 1 BOX PO SCH (19:34)
[2017-10-30] MEDS: TAMSULOSIN HCL 0.4 MG CAP PO SCH (21:27)
[2017-10-30] MEDS: SIMVASTATIN 20 MG TAB PO SCH (21:27)
[2017-10-31] MEDS: SODIUM CHLORIDE 0.9% 1000ML 1,000 ML IV SCH ×3 (03:23→22:46)
[2017-10-31] MEDS: PIPERACILL/TAZOBAC IV 3.375 GM in DEXTROSE 5% 100ML 100 ML IV SCH ×3 (03:23→19:39)
[2017-10-31 07:18] VITALS: BP 90/55; PULSE 85; TEMP 36.4; O2SAT 92
[2017-10-31 07:37] LABS: HEMATOCRIT 35.4 % (42-52); HEMOGLOBIN 11.5 g/dL (14.0-18.0); MEAN CELL VOLUME 96.7 fL (80-100); MEAN CORPUSCULAR HEMOGLOBIN 31.4 pg (25-34); MEAN CORPUSCULAR HGB CONC 32.5 g/dl (32-36); MEAN PLATELET VOLUME 9.2 fL (7.4-10.4); PLATELET COUNT 102 K/uL (130-400); RED CELL DISTRIBUTION WIDTH CV 14.7 % (11.5-14.5); RED CELL DISTRIBUTION WIDTH SD 52.5 fL (36.4-46.3); WHITE BLOOD COUNT 5.49 K/uL (4.8-10.8)
[2017-10-31] MEDS: AVODART~ORDER AWAITING ACTION SCH ×3 (07:41→14:32)
[2017-10-31 07:42] LABS: PTT PATIENT 30.3 SECONDS (21.0-31.0)
[2017-10-31] MEDS: PANTOprazole SOD 40 MG TAB PO SCH (07:42)
[2017-10-31] MEDS: DOCUSATE SODIUM/SENNA 50/8.6MG TAB PO SCH ×2 (07:42→21:41)
[2017-10-31] MEDS: FERROUS SULFATE 325 MG TAB PO SCH (07:42)
[2017-10-31] MEDS: MULTIVITAMIN TAB PO SCH (07:42)
[2017-10-31] MEDS: GABAPENTIN 800 MG TAB PO SCH ×3 (07:42→21:41)
[2017-10-31] MEDS: POLYETHYLENE (MIRALAX) 17 GM PACK PO SCH (07:43)
[2017-10-31] MEDS: CHOLECALCIFEROL 1000 INTER.UNIT TAB PO SCH (07:43)
[2017-10-31] MEDS: BOOST BREEZE NUTRITION DRINK 1 BOX PO SCH (07:43)
[2017-10-31] MEDS: INSULIN ASPART 100 UNITS/ML 3 ML PEN SC SCH ×4 (07:44→21:00)
[2017-10-31] MEDS: HEPARIN SOD 5000 UNIT/0.5 ML CARP SQ SCH ×2 (07:45→21:00)
[2017-10-31 08:05] LABS: BASO % 0.4 %; BASO ABS # 0.02 K/uL (0-0.2); EOS % 3.6 %; IG# 0.01 K/uL (0.00-0.02); LYMPH ABS # 1.37 K/uL (1.2-3.4); MONO % 8.9 %; MONO ABS # 0.49 K/uL (0.11-0.59); NEUT % 61.9 %
[2017-10-31 08:14] LABS: CALCIUM 8.2 mg/dl (8.5-10.1); CREATININE 0.87 mg/dl (0.60-1.40); POTASSIUM 3.8 mmol/L (3.5-5.1); TOTAL PROTEIN 5.4 gm/dl (6.4-8.2)
--- NOTE | 2017-10-31 08:50 | Clinical Documentation Query ---
CLINICAL DOCUMENTATION QUERY 86 year old male who presents to the Emergency Room with complaints of a constant fever. In your clinical opinion is this patient being managed for: ( x ) Protein-calorie Malnutrition ( )Mild ( )Moderate ( x )Severe ( ) Not Agree ( ) Other explanation of clinical findings (Please Explain) ( ) Unable to determine (Please Define) ( ) Need to Discuss The medical record reflects the following clinical findings, treatment, and risk factors. Clinical Indicators: RD Consult states: Acute Malnutrition: Loss of Body Fat Moderate Acute Malnutrition: Muscle Loss Moderate Acute Malnutrition: Determination Met Nutrition Assessment Label Underweight Related To medical hx Evidenced By current BMI of 15.2 Nutritional Goals Adequate Oral Intake Electrolytes WNL BG within Target Range Maintain/Imp Skin Integ Other Bowel Regularity Nutritional Goals Comment Pt with appropriate weight gain Intervention - Diet texture per NEWSPAPER WRITER - Pt currently refusing ordered Boost. Will attempt a different product and monitor Pt's acceptance - Consider addition of MVI - Will continue to work with Pt and monitor Pt's labs, weights, PO intake, need for additional interventions. Treatment: BOOST, RD consult, feeding assistance, Risk Factors: Age, underlying medical conditions Please clarify and document your clinical opinion in the progress notes and discharge summary. Terms such as "probable", "suspected", "likely", "questionable", "possible", or "still to be ruled out" are acceptable. IF IN AGREEMENT, YOU MUST DOCUMENT ABOVE DIAGNOSTIC STATEMENT IN DAILY PROGRESS NOTES AND DISCHARGE SUMMARY. This document is not part of the patient's record. Thank You, Vel Calderón, RN [phone]
--- NOTE | 2017-10-31 08:56 | Hospitalist Progress Note ---
Hospitalist Progress Note Date of Service Oct 31, 2017. (Dannielle Payne PA-C) Subjective Pt evaluation today including: conversation w/ patient, conversation w/ family , physical exam, chart review, lab review Pain: None PO Intake: Good Voiding: deras catheter in place The patient was seen and examined this morning. Pt reports doing fine today. C/ o bleeding from around the deras catheter today, appears to have slowed down and clotted around the tubing during my exam, but pt notes it has been happening on and off this morning. He normally does not have a deras catheter in place. Constitutional: No fever, No chills, No sweats Eyes: No redness, No discharge ENT: No nasal symptoms, No sore throat, No trouble swallowing Respiratory: + cough, + sputum, No shortness of breath, No dyspnea at rest Cardiovascular: No chest pain, No edema, No palpitations Abdomen: No pain, No nausea, No vomiting, No diarrhea, No constipation Musculoskeletal: No joint pain, No swelling Neurologic: No weakness, No numbness/tingling Psychiatric: No depression symptoms, No anxiety Endo: No fatigue Skin: No rash, No itch (Dannielle Payne PA-C) Objective Vital Signs Date Time Temp Pulse Resp B/P (MAP) Pulse Ox O2 Delivery O2 Flow Rate FiO2 10/31/17 07:18 36.4 85 16 90/55 (67) 92 Room Air 10/31/17 00:30 Room Air 10/30/17 23:39 36.9 88 20 91/46 (61) 92 Room Air 10/30/17 17:29 93/59 (70) 10/30/17 16:50 84/52 (63) 88/49 (62) 10/30/17 16:00 78 85/47 (60) 77/49 (58) 10/30/17 16:00 91 Room Air 10/30/17 14:56 36.3 64 20 87/49 (62) 91 Room Air 63/41 (48) 10/30/17 11:07 97 Nasal Cannula 2.0 (Dannielle Payne PA-C) Physical Exam Notes: General Appearance: WD/WN, no apparent distress, + thin, + pertinent finding ( frail, 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 Extremities: non-tender, no pedal edema, no calf tenderness Neurologic/Psychiatric: alert, + pertinent finding (oriented to place and self , not time, answers all questions without difficulty. ) Skin: normal color, warm/dry (Dannielle Payne, JEFFREY) Laboratory Results Last 24 Hours Test 10/30/17 11:55 10/30/17 16:22 10/30/17 20:17 10/31/17 07:05 Bedside Glucose 116 mg/dl 92 mg/dl 118 mg/dl White Blood Count 5.49 K/uL Red Blood Count 3.66 M/uL Hemoglobin 11.5 g/dL Hematocrit 35.4 % Mean Corpuscular Volume 96.7 fL Mean Corpuscular Hemoglobin 31.4 pg Mean Corpuscular Hemoglobin Concent 32.5 g/dl Platelet Count 102 K/uL Mean Platelet Volume 9.2 fL Neutrophils (%) (Auto) 61.9 % Lymphocytes (%) (Auto) 25.0 % Monocytes (%) (Auto) 8.9 % Eosinophils (%) (Auto) 3.6 % Basophils (%) (Auto) 0.4 % Neutrophils # (Auto) 3.40 K/uL Lymphocytes # (Auto) 1.37 K/uL Monocytes # (Auto) 0.49 K/uL Eosinophils # (Auto) 0.20 K/uL Basophils # (Auto) 0.02 K/uL RDW Standard Deviation 52.5 fL RDW Coefficient of Variation 14.7 % Immature Granulocyte % (Auto) 0.2 % Immature Granulocyte # (Auto) 0.01 K/uL Prothrombin Time 10.3 SECONDS Prothromb Time International Ratio 1.0 Activated Partial Thromboplast Time 30.3 SECONDS Partial Thromboplastin Ratio 1.2 Sodium Level 141 mmol/L Potassium Level 3.8 mmol/L Chloride Level 111 mmol/L Carbon Dioxide Level 26 mmol/L Anion Gap 4.0 mmol/L Blood Urea Nitrogen 19 mg/dl Creatinine 0.87 mg/dl Est Creatinine Clear Calc Drug Dose 34.9 ml/min Estimated GFR () 91.9 Estimated GFR (Non- 79.3 BUN/Creatinine Ratio 21.9 Random Glucose 86 mg/dl Calcium Level 8.2 mg/dl Magnesium Level 1.9 mg/dl Total Bilirubin 0.3 mg/dl Direct Bilirubin 0.1 mg/dl Aspartate Amino Transf (AST/SGOT) 25 U/L Alanine Aminotransferase (ALT/SGPT) 26 U/L Alkaline Phosphatase 52 U/L Total Protein 5.4 gm/dl Albumin 2.0 gm/dl Test 10/31/17 07:27 Bedside Glucose 93 mg/dl (Dannielle Payne, JEFFREY) Assessment and Plan 86 yo M with UTI and early left lower lobe pneumonia Sepsis secondary to the above Metabolic encephalopathy - continue Zosyn IV (started 10/30) - pt able to answer all questions appropriately - appears hx of UTI was when he had an indwelling catheter, however no longer has one. - Speech therapy unable to do video swallow d/t severe torticollis. Pt tolerating diet without difficulty, no further recs. - Appreciate recs. - Follow urine culture and sensitivity. - No leukocytosis, afebrile overnight Hypotension w/ hx of hypertension - Hold metoprolol tartrate 25 mg BID with borderline hypotension - Pt s/p 2 L NSS bolus - not on maintenance fluids - encourage po intake today. 10/30: S/p bolus of NSS 250 mL wide open for BP of 80s/60s, and follow with NSS at 100mL/hr with poor oral intake. - Improved today slightly to 90s/50s - improve po intake BPH-- Continue tamsulosin 0.4 mg p.o. at bedtime and Avodart 0.5 mg p.o. daily. - hx of TURP with indwelling catheter which has since been removed used to be the cause of recurrent UTIs - follows with Dr. Barnard as outpt. Diabetes mellitus-- Hold glimepiride. Placed on Accu-Cheks achs and ISS Moderate Protein Calorie malnutrition - BMI 15.2, albumin low at 2.0 - Will start on boost with meals. Hyperlipidemia-- continue simvastatin 20 mg p.o. in the evening. GERD--change Nexium to pantoprazole 40 mg daily. Peripheral neuropathy-- Continue gabapentin 800 mg p.o. 3 times daily. DVT ppx: heparin subq CODE: FULL Disposition: Resident of [facility], to assist with dc planning, possible in 2days. PT/OT evals. (Dannielle Payne, JEFFREY) Attending Attestation - Pt seen/examined, chart reviewed, care plan d/w PATTY Payne. I agree w/ the maldonado components of her documentation. Pt asks when he can return home Denies any complaints - no significant cough or dyspnea Deras placed last pm - small amount of old, dried blood at meatus but urine in bag is clear VSS no fever BPs low-normal gen - very thin, severe torticollis mouth - MMM neck - no JVD heart - RRR lungs - mild wheezes b/l, crackles left base abd - soft ext - no edema penis - phimosis present; the portion of glans I can see is clean and without trauma/abrasion A/P: 1. pneumonia, b/l, possibly aspiration 2. possible UTI 3. deras trauma 4. protein calorie malnutrition, severe 5. sepsis 2nd to #1, #2 6. reactive bronchitis to #1 add prednisone add nutritional supplements cont abx await cx's PT, OT evals to ensure safe dispo to [facility] Shawna CARPIO MD (Live Carpio MD)
[2017-10-31] MEDS: BOOST PLUS VANILLA PO SCH (11:54)
--- NOTE | 2017-10-31 12:41 | Clinical Documentation Query ---
CLINICAL DOCUMENTATION QUERY 86 year old male who presents to the Emergency Room with complaints of a constant fever. In your clinical opinion is this patient being managed for: ( ) Protein-calorie Malnutrition ( )Mild ( )Moderate ( x)Severe ( ) Not Agree ( ) Other explanation of clinical findings (Please Explain) ( ) Unable to determine (Please Define) ( ) Need to Discuss The medical record reflects the following clinical findings, treatment, and risk factors. Clinical Indicators: RD Consult states: Acute Malnutrition: Loss of Body Fat Moderate Acute Malnutrition: Muscle Loss Moderate Acute Malnutrition: Determination Met Nutrition Assessment Label Underweight Related To medical hx Evidenced By current BMI of 15.2 Nutritional Goals Adequate Oral Intake Electrolytes WNL BG within Target Range Maintain/Imp Skin Integ Other Bowel Regularity Nutritional Goals Comment Pt with appropriate weight gain Intervention - Diet texture per TOPPER PACKER - Pt currently refusing ordered Boost. Will attempt a different product and monitor Pt's acceptance - Consider addition of MVI - Will continue to work with Pt and monitor Pt's labs, weights, PO intake, need for additional interventions. Treatment: BOOST, RD consult, feeding assistance, Risk Factors: Age, underlying medical conditions Please clarify and document your clinical opinion in the progress notes and discharge summary. Terms such as "probable", "suspected", "likely", "questionable", "possible", or "still to be ruled out" are acceptable. IF IN AGREEMENT, YOU MUST DOCUMENT ABOVE DIAGNOSTIC STATEMENT IN DAILY PROGRESS NOTES AND DISCHARGE SUMMARY. This document is not part of the patient's record. Thank You, Vel Calderón, RN [phone]
[2017-10-31] MEDS: BOOST GLUCOSE CONTROL PO SCH ×2 (15:07→17:22)
[2017-10-31 15:44] VITALS: BP 116/70; PULSE 82; TEMP 36.4; O2SAT 94
[2017-10-31] MEDS: SIMVASTATIN 20 MG TAB PO SCH (21:41)
[2017-10-31] MEDS: TAMSULOSIN HCL 0.4 MG CAP PO SCH (21:41)
[2017-10-31 23:51] VITALS: BP 129/76; PULSE 99; TEMP 36.6; O2SAT 92
[2017-11-01] MEDS: PIPERACILL/TAZOBAC IV 3.375 GM in DEXTROSE 5% 100ML 100 ML IV SCH ×3 (04:15→20:26)
[2017-11-01] MEDS: BOOST GLUCOSE CONTROL PO SCH ×4 (05:29→17:21)
[2017-11-01 06:55] LABS: HEMATOCRIT 38.5 % (42-52); HEMOGLOBIN 12.4 g/dL (14.0-18.0); MEAN CORPUSCULAR HEMOGLOBIN 30.9 pg (25-34); MEAN CORPUSCULAR HGB CONC 32.2 g/dl (32-36); MEAN PLATELET VOLUME 9.2 fL (7.4-10.4); PLATELET COUNT 110 K/uL (130-400); RED CELL DISTRIBUTION WIDTH CV 14.3 % (11.5-14.5); RED CELL DISTRIBUTION WIDTH SD 50.7 fL (36.4-46.3); WHITE BLOOD COUNT 6.44 K/uL (4.8-10.8)
[2017-11-01 07:10] LABS: PTT PATIENT 29.7 SECONDS (21.0-31.0)
[2017-11-01 07:19] LABS: BASO % 0.5 %; BASO ABS # 0.03 K/uL (0-0.2); EOS % 4.2 %; EOS ABS # 0.27 K/uL (0-0.5); IG# 0.01 K/uL (0.00-0.02); LYMPH % 21.4 %; LYMPH ABS # 1.38 K/uL (1.2-3.4); MONO % 8.4 %; MONO ABS # 0.54 K/uL (0.11-0.59); NEUT % 65.3 %; NEUT ABS # 4.21 K/uL (1.4-6.5)
[2017-11-01] MEDS: CHOLECALCIFEROL 1000 INTER.UNIT TAB PO SCH (07:32)
[2017-11-01] MEDS: DOCUSATE SODIUM/SENNA 50/8.6MG TAB PO SCH ×2 (07:32→20:31)
[2017-11-01] MEDS: PANTOprazole SOD 40 MG TAB PO SCH (07:32)
[2017-11-01] MEDS: MULTIVITAMIN TAB PO SCH (07:32)
[2017-11-01] MEDS: FERROUS SULFATE 325 MG TAB PO SCH (07:32)
[2017-11-01 07:33] LABS: ALBUMIN 2.2 gm/dl (3.4-5.0); CALCIUM 8.1 mg/dl (8.5-10.1); CREATININE 0.76 mg/dl (0.60-1.40); POTASSIUM 3.5 mmol/L (3.5-5.1)
[2017-11-01] MEDS: GABAPENTIN 800 MG TAB PO SCH ×3 (07:33→20:30)
[2017-11-01] MEDS: POLYETHYLENE (MIRALAX) 17 GM PACK PO SCH (07:34)
[2017-11-01 07:35] LABS: TOTAL PROTEIN 6.1 gm/dl (6.4-8.2)
[2017-11-01] MEDS: AVODART~ORDER AWAITING ACTION SCH ×3 (07:35→16:00)
[2017-11-01] MEDS: HEPARIN SOD 5000 UNIT/0.5 ML CARP SQ SCH ×2 (07:43→20:40)
[2017-11-01 07:45] VITALS: BP 128/77; PULSE 97; TEMP 36.6; O2SAT 91
[2017-11-01] MEDS: INSULIN ASPART 100 UNITS/ML 3 ML PEN SC SCH ×4 (08:14→21:39)
[2017-11-01] MEDS: SODIUM CHLORIDE 0.9% 1000ML 1,000 ML IV SCH ×2 (08:52→16:23)
--- NOTE | 2017-11-01 08:55 | Hospitalist Progress Note ---
Hospitalist Progress Note Date of Service Nov 01, 2017. (Dannielle Payne PA-C) Subjective Pt evaluation today including: conversation w/ patient, physical exam, chart review, lab review, review of studies Pain: None PO Intake: Good Voiding: deras catheter in place The patient was seen and examined this morning. Pt reports doing well today. He asks to be discharged soon because he misses his dog. He denies any new issues. Pt notes his breathing feels ok, cannot determine if feels better today compared to yesterday. He still has a cough but reports that this is nonproductive. No shortness of breath with ambulation today. PT/OT have been working with the patient and report that he is around his baseline functional status. Pt denies any f/c/s. Additional Comments: Constitutional: No fever, No chills, No sweats Eyes: No redness, No discharge ENT: No nasal symptoms, No sore throat, No trouble swallowing Respiratory: + cough, nonproductive. No shortness of breath, No dyspnea at rest Cardiovascular: No chest pain, No edema, No palpitations Abdomen: No pain, No nausea, No vomiting, No diarrhea, No constipation Musculoskeletal: No joint pain, No swelling Neurologic: No weakness, No numbness/tingling Psychiatric: No depression symptoms, No anxiety Endo: No fatigue Skin: No rash, No itch (Dannielle Payne PA-C) Objective Vital Signs Date Time Temp Pulse Resp B/P (MAP) Pulse Ox O2 Delivery O2 Flow Rate FiO2 11/01/17 07:45 36.6 97 16 128/77 (94) 91 Room Air 11/01/17 00:15 Room Air 2.0 10/31/17 23:51 36.6 99 20 129/76 (93) 92 Room Air 10/31/17 16:00 Room Air 10/31/17 15:44 36.4 82 17 116/70 (85) 94 Room Air (Dannielle Payne PA-C) Physical Exam Notes: General Appearance: WD/WN, no apparent distress, + thin, + pertinent finding ( frail, 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 Extremities: non-tender, no pedal edema, no calf tenderness Neurologic/Psychiatric: alert, + pertinent finding (oriented to place and self , not time, answers all questions without difficulty. ) Skin: normal color, warm/dry (Dannielle Payne, JEFFREY) Laboratory Results Last 24 Hours Test 10/31/17 11:14 10/31/17 16:07 10/31/17 20:20 11/01/17 06:36 Bedside Glucose 80 mg/dl 98 mg/dl 111 mg/dl White Blood Count 6.44 K/uL Red Blood Count 4.01 M/uL Hemoglobin 12.4 g/dL Hematocrit 38.5 % Mean Corpuscular Volume 96.0 fL Mean Corpuscular Hemoglobin 30.9 pg Mean Corpuscular Hemoglobin Concent 32.2 g/dl Platelet Count 110 K/uL Mean Platelet Volume 9.2 fL Neutrophils (%) (Auto) 65.3 % Lymphocytes (%) (Auto) 21.4 % Monocytes (%) (Auto) 8.4 % Eosinophils (%) (Auto) 4.2 % Basophils (%) (Auto) 0.5 % Neutrophils # (Auto) 4.21 K/uL Lymphocytes # (Auto) 1.38 K/uL Monocytes # (Auto) 0.54 K/uL Eosinophils # (Auto) 0.27 K/uL Basophils # (Auto) 0.03 K/uL RDW Standard Deviation 50.7 fL RDW Coefficient of Variation 14.3 % Immature Granulocyte % (Auto) 0.2 % Immature Granulocyte # (Auto) 0.01 K/uL Prothrombin Time 10.3 SECONDS Prothromb Time International Ratio 1.0 Activated Partial Thromboplast Time 29.7 SECONDS Partial Thromboplastin Ratio 1.1 Sodium Level 143 mmol/L Potassium Level 3.5 mmol/L Chloride Level 112 mmol/L Carbon Dioxide Level 25 mmol/L Anion Gap 6.0 mmol/L Blood Urea Nitrogen 14 mg/dl Creatinine 0.76 mg/dl Est Creatinine Clear Calc Drug Dose 39.9 ml/min Estimated GFR () 97.1 Estimated GFR (Non- 83.8 BUN/Creatinine Ratio 18.5 Random Glucose 106 mg/dl Calcium Level 8.1 mg/dl Magnesium Level 1.7 mg/dl Total Bilirubin 0.5 mg/dl Direct Bilirubin 0.1 mg/dl Aspartate Amino Transf (AST/SGOT) 33 U/L Alanine Aminotransferase (ALT/SGPT) 28 U/L Alkaline Phosphatase 59 U/L Total Protein 6.1 gm/dl Albumin 2.2 gm/dl Test 11/01/17 07:34 Bedside Glucose 102 mg/dl (Dannielle Payne, JEFFREY) Assessment and Plan 86 yo M with UTI and early left lower lobe pneumonia Bronchitis Sepsis secondary to the above Metabolic encephalopathy - continue Zosyn IV (started 10/30) - pt able to answer all questions appropriately - appears hx of UTI was when he had an indwelling catheter, however no longer has indwelling - a deras was placed on 10/31 - plan to remove today - Started prednisone 40 mg today, continue daily and plan to taper off - Flutter, incentive spirometry - Speech therapy unable to do video swallow d/t severe torticollis. Pt tolerating diet without difficulty, no further recs. - Appreciate recs. - Follow urine culture and sensitivity. - Reincubating - No leukocytosis, afebrile overnight Hypotension w/ hx of hypertension - initially held metoprolol tartrate 25 mg BID with borderline hypotension - received IVFs, now resolved - Restart home metoprolol 25 mg BID 11/01 BPH-- Continue tamsulosin 0.4 mg p.o. at bedtime and Avodart 0.5 mg p.o. daily. - hx of TURP with indwelling catheter which has since been removed used to be the cause of recurrent UTIs - follows with Dr. Barnard as outpt. Diabetes mellitus-- Hold glimepiride. Placed on Accu-Cheks achs and ISS Severe Protein Calorie malnutrition - BMI 15.2, albumin low at 2.0 - Continue boost with meals. Hyperlipidemia-- continue simvastatin 20 mg p.o. in the evening. GERD--change Nexium to pantoprazole 40 mg daily. Peripheral neuropathy-- Continue gabapentin 800 mg p.o. 3 times daily. DVT ppx: heparin subq CODE: FULL Disposition: Resident of [facility], to assist with dc planning, possible tomorrow. (Dannielle Payne PA-C) Attending Attestation - Pt seen/examined, chart reviewed, care plan d/w PATTY Payne. I agree w/ the maldonado components of her documentation. Pt frustrated that he can't go home. He has been mildly confused per staff. Coughing. VSS no fever gen - very thin, severe torticollis, audible wheezing mouth - MMM neck - no JVD heart - RRR lungs - worse wheezing today, course BS b/l abd - soft ext - no edema penis - wnl today A/P: 1. pneumonia, b/l, possibly aspiration 2. possible UTI - ruled out; insignificant amount of yeast; deras is out; would not Rx 3. deras trauma - resolved 4. protein calorie malnutrition, severe 5. sepsis 2nd to #1, #2 - resolving 6. reactive bronchitis to #1 - worse today - due to aspiration? add nebs q6h; repeat cxr today to ensure no worsening pneumonia cont steroids PT, OT evals completed - ok to return to [facility] Shawna CARPIO MD (Live Carpio MD)
[2017-11-01] MEDS ORDERED: NURSING VERBAL MED ORDER ONE (09:45)
[2017-11-01] MEDS ORDERED: COUGH DROP (SUGAR FREE) LOZ 24 LOZ/1 BOX LOZ PRN (10:00)
[2017-11-01] MEDS: METOPROLOL TARTRATE 25 MG TAB PO SCH ×2 (11:05→20:31)
[2017-11-01 17:10] VITALS: BP 152/84; PULSE 107; TEMP 36.6; O2SAT 95
--- NOTE | 2017-11-01 18:53 | DIAGNOSTIC IMAGING REPORT ---
CHEST ONE VIEW PORTABLE CLINICAL HISTORY: 86 years-old Male presenting with assess pneumonia. TECHNIQUE: Portable upright AP view of the chest was obtained. COMPARISON: 10/29/2017. FINDINGS: The patient is BELGIAN rotated. Atherosclerosis of aortic arch. Cardiac silhouette normal in size. Decreased aeration of the left lung base. Persistent heterogeneity of lung parenchyma with relative hyperinflation of the right lung. Decreased prominence of the apparent right upper lung opacity. Trace left pleural effusion is difficult to exclude. No large pneumothorax. Osteopenia. Deformities of the bilateral humeral necks as on prior exam. Gas and stool distended colon. IMPRESSION: 1. Decreased aeration of the left lower lung, possibly atelectasis. Infection or aspiration are difficult to exclude. 2. Previously suggested right upper lung opacity is not visible on the current radiograph and may have been projectional/artifactual. 3. Findings suggest underlying emphysema. Electronically signed by: Shane Rivas M.D. 11/01/2017 6:52 PM Dictated Date/Time: 11/01/2017 6:50 PM
[2017-11-01 19:23] VITALS: BP 151/96; PULSE 114; TEMP 36.4; O2SAT 94
[2017-11-01] MEDS: ALBUT/IPRATROP 3MG/0.5MG NEB 3 ML VIAL INH SCH (20:21)
[2017-11-01 20:23] VITALS: PULSE 109; O2SAT 96
[2017-11-01] MEDS: TAMSULOSIN HCL 0.4 MG CAP PO SCH (20:30)
[2017-11-01] MEDS: SIMVASTATIN 20 MG TAB PO SCH (20:31)
[2017-11-01 23:14] VITALS: BP 123/80; PULSE 90; TEMP 36.8; O2SAT 95
[2017-11-02] MEDS: PIPERACILL/TAZOBAC IV 3.375 GM in DEXTROSE 5% 100ML 100 ML IV SCH ×3 (04:28→20:36)
[2017-11-02 07:09] VITALS: PULSE 97; O2SAT 96
[2017-11-02] MEDS: ALBUT/IPRATROP 3MG/0.5MG NEB 3 ML VIAL INH SCH (07:09)
[2017-11-02] MEDS: AVODART~ORDER AWAITING ACTION SCH ×4 (07:47→23:37)
[2017-11-02] MEDS: BOOST GLUCOSE CONTROL PO SCH ×5 (07:47→16:54)
[2017-11-02] MEDS: PANTOprazole SOD 40 MG TAB PO SCH (07:48)
[2017-11-02] MEDS: CHOLECALCIFEROL 1000 INTER.UNIT TAB PO SCH (07:48)
[2017-11-02] MEDS: FERROUS SULFATE 325 MG TAB PO SCH (07:48)
[2017-11-02] MEDS: METOPROLOL TARTRATE 25 MG TAB PO SCH ×2 (07:48→20:47)
[2017-11-02] MEDS: MULTIVITAMIN TAB PO SCH (07:48)
[2017-11-02] MEDS: DOCUSATE SODIUM/SENNA 50/8.6MG TAB PO SCH ×2 (07:49→20:37)
[2017-11-02] MEDS: GABAPENTIN 800 MG TAB PO SCH ×3 (07:49→20:38)
[2017-11-02] MEDS: HEPARIN SOD 5000 UNIT/0.5 ML CARP SQ SCH ×2 (07:51→20:40)
[2017-11-02] MEDS: POLYETHYLENE (MIRALAX) 17 GM PACK PO SCH (07:52)
[2017-11-02 07:55] VITALS: BP 136/77; PULSE 98; TEMP 36.5; O2SAT 98
[2017-11-02] MEDS: INSULIN ASPART 100 UNITS/ML 3 ML PEN SC SCH ×4 (07:58→20:52)
[2017-11-02] MEDS ORDERED: FLUCONAZOLE 100 MG TAB PO SCH (11:00)
--- NOTE | 2017-11-02 11:20 | Hospitalist Progress Note ---
Hospitalist Progress Note Date of Service Nov 02, 2017. (Dannielle Payne PA-C) Subjective Pt evaluation today including: conversation w/ patient, physical exam, chart review, lab review, review of studies Pain: None PO Intake: Fair Voiding: no voiding problems The patient was seen and examined this morning. Pt reports doing well today. He denies any issues with his breathing, but still has an occasional cough. He denies any colored sputum production. Patient has been ambulating without any difficulty to the bathroom. Last bowel movement was this morning. He is tolerating p.o. intake, but is requesting that boost be flavored to strawberry. Patient is still very hopeful that he will be able to be discharged soon to be able to see his dog. Additional Comments: Constitutional: No fever, No chills, No sweats Eyes: No redness, No discharge ENT: No nasal symptoms, No sore throat, No trouble swallowing Respiratory: + cough, nonproductive. No shortness of breath, No dyspnea at rest Cardiovascular: No chest pain, No edema, No palpitations Abdomen: No pain, No nausea, No vomiting, No diarrhea, No constipation Musculoskeletal: No joint pain, No swelling Neurologic: No weakness, No numbness/tingling (Dannielle Payne PA-C) Objective Vital Signs Date Time Temp Pulse Resp B/P (MAP) Pulse Ox O2 Delivery O2 Flow Rate FiO2 11/02/17 08:00 Room Air 11/02/17 07:55 36.5 98 18 136/77 (96) 98 Room Air 11/02/17 07:09 97 16 96 Room Air 11/02/17 00:20 Room Air 11/01/17 23:14 36.8 90 18 123/80 (94) 95 11/01/17 20:23 109 16 96 Room Air 11/01/17 20:00 Room Air 11/01/17 19:23 36.4 114 18 151/96 (114) 94 Room Air 11/01/17 17:10 36.6 107 16 152/84 (106) 95 Room Air 11/01/17 16:00 Room Air (Dannielle Payne PA-C) Physical Exam Notes: General Appearance: WD/WN, no apparent distress, + thin, + pertinent finding ( frail, 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 Extremities: non-tender, no pedal edema, no calf tenderness Neurologic/Psychiatric: alert, + pertinent finding (oriented to place and self , not time, answers all questions without difficulty. ) Skin: normal color, warm/dry (Dannielle Payne PA-C) Laboratory Results Last 24 Hours Test 11/01/17 16:16 11/01/17 20:44 11/02/17 07:42 Bedside Glucose 91 mg/dl 161 mg/dl 120 mg/dl (Dannielle Payne PA-C) Assessment and Plan 86 yo M with UTI and early left lower lobe pneumonia Bronchitis Sepsis secondary to the above Metabolic encephalopathy - continue Zosyn IV (started 10/30) - downgrade to oral abx upon discharge - appears hx of UTI was when he had an indwelling catheter, however no longer has indwelling - a deras was placed on 10/31 - deras cath out and passing void trial. - Started prednisone 40 mg 11/01, continue daily and plan to taper off starting tomorrow - Change duonebs to xopenex - Will give 1 dose of Lasix 20 mg PO as pt was heavily volume resuscitated at time of admission with 6-7L, this may be playing a role in coarse breath sounds. Breath sounds overall sound improved today. - Flutter, incentive spirometry - Speech therapy unable to do video swallow d/t severe torticollis. Pt tolerating diet without difficulty, no further recs. - Appreciate recs. - Follow urine culture growing yeast not allyn. no further tx. - No leukocytosis, afebrile overnight Hypotension w/ hx of hypertension - initially held metoprolol tartrate 25 mg BID with borderline hypotension - received IVFs, now resolved - Restart home metoprolol 25 mg BID / Tachycardia - Possible that duonebs are contributing to this - change to xopenex - EKG obtained and reviewed - no acute findings BPH-- Continue tamsulosin 0.4 mg p.o. at bedtime and Avodart 0.5 mg p.o. daily. - hx of TURP with indwelling catheter which has since been removed used to be the cause of recurrent UTIs - follows with Dr. Barnard as outpt. Diabetes mellitus-- Hold glimepiride. Placed on Accu-Cheks achs and ISS Severe Protein Calorie malnutrition - BMI 15.2, albumin low at 2.0 - Continue boost with meals. - flavor per pt request Hyperlipidemia-- continue simvastatin 20 mg p.o. in the evening. GERD--change Nexium to pantoprazole 40 mg daily. Peripheral neuropathy-- Continue gabapentin 800 mg p.o. 3 times daily. DVT ppx: heparin subq CODE: FULL Disposition: Resident of [facility], to assist with dc planning, likely tomorrow. (Dannielle Payne, JEFFREY) Attending Attestation - Pt seen/examined, chart reviewed, care plan d/w PATTY Payne. I agree w/ the maldonado components of her documentation. Pt again asks when he is going home. Intake flowsheets show very poor appetite, consuming < 10% of meals. scheduling manager called [facility] - they report he is usually a robust eater. cont w/ cough. He was upset with me that I expressed concerns about his eating. VSS no fever o2 sats acceptable gen - very thin, severe torticollis, coughing mouth - MMM neck - no JVD heart - RRR lungs - course BS w/ wheezing b/l - maybe slightly better today abd - soft ext - no edema A/P: 1. pneumonia, b/l, possibly aspiration - day #5 of abx; can likely transition to PO augmentin tomorrow; complete 7-10 days of abx in total 2. possible UTI - ruled out; insignificant amount of yeast; deras is out; would not Rx 3. deras trauma - resolved 4. protein calorie malnutrition, severe - despite shelter stating he eats well, his albumin was only 2 at presentation, and his BMI is only 15 -- unsure how much w/u to do for this; defer to his outpatient physicians 5. sepsis 2nd to #1, #2 - resolving/resolved 6. reactive bronchitis to #1 - cont nebs, cont prednisone; repeat cxr last evening no worse 7. significant volume excess since admission - lasix 20mg po x 1 PT, OT evals completed - ok to return to [facility] would not discharge today due to poor oral intake Shawna CARPIO MD (Live Carpio MD)
[2017-11-02] MEDS ORDERED: FUROSEMIDE 20 MG TAB PO ONE (11:45)
[2017-11-02 13:42] VITALS: PULSE 95; O2SAT 94
[2017-11-02] MEDS: LEVALBUTEROL 1.25MG/3ML NEB INH SCH ×2 (13:42→19:08)
[2017-11-02 15:54] VITALS: BP 108/60; PULSE 98; TEMP 36.5; O2SAT 95
[2017-11-02 19:08] VITALS: PULSE 92; O2SAT 94
[2017-11-02] MEDS: TAMSULOSIN HCL 0.4 MG CAP PO SCH (20:38)
[2017-11-02] MEDS: SIMVASTATIN 20 MG TAB PO SCH (20:41)
[2017-11-02 22:41] VITALS: BP 105/66; PULSE 102; TEMP 36.7; O2SAT 94
[2017-11-03] MEDS: LEVALBUTEROL 1.25MG/3ML NEB INH SCH ×3 (01:57→14:15)
[2017-11-03] MEDS: PIPERACILL/TAZOBAC IV 3.375 GM in DEXTROSE 5% 100ML 100 ML IV SCH ×2 (03:43→12:45)
[2017-11-03 06:31] LABS: HEMATOCRIT 34.3 % (42-52); HEMOGLOBIN 11.3 g/dL (14.0-18.0); MEAN CORPUSCULAR HEMOGLOBIN 31.3 pg (25-34); MEAN CORPUSCULAR HGB CONC 32.9 g/dl (32-36); MEAN PLATELET VOLUME 8.7 fL (7.4-10.4); PLATELET COUNT 123 K/uL (130-400); RED CELL DISTRIBUTION WIDTH CV 14.6 % (11.5-14.5); RED CELL DISTRIBUTION WIDTH SD 50.8 fL (36.4-46.3); WHITE BLOOD COUNT 6.31 K/uL (4.8-10.8)
[2017-11-03 07:06] VITALS: PULSE 96; O2SAT 93
[2017-11-03] MEDS: BOOST GLUCOSE CONTROL PO SCH ×2 (07:08→12:18)
[2017-11-03 07:10] LABS: CALCIUM 8.5 mg/dl (8.5-10.1); CREATININE 0.91 mg/dl (0.60-1.40); POTASSIUM 3.1 mmol/L (3.5-5.1)
[2017-11-03 07:53] VITALS: BP 112/78; PULSE 111; TEMP 36.5; O2SAT 96
[2017-11-03] MEDS: AVODART~ORDER AWAITING ACTION SCH (08:00)
[2017-11-03] MEDS: METOPROLOL TARTRATE 25 MG TAB PO SCH (08:25)
[2017-11-03] MEDS: PANTOprazole SOD 40 MG TAB PO SCH (08:25)
[2017-11-03] MEDS: MULTIVITAMIN TAB PO SCH (08:25)
[2017-11-03] MEDS: DOCUSATE SODIUM/SENNA 50/8.6MG TAB PO SCH (08:26)
[2017-11-03] MEDS: GABAPENTIN 800 MG TAB PO SCH ×2 (08:26→14:24)
[2017-11-03] MEDS: POLYETHYLENE (MIRALAX) 17 GM PACK PO SCH (08:27)
[2017-11-03] MEDS: CHOLECALCIFEROL 1000 INTER.UNIT TAB PO SCH (08:27)
[2017-11-03] MEDS: INSULIN ASPART 100 UNITS/ML 3 ML PEN SC SCH ×2 (08:34→12:48)
[2017-11-03] MEDS: HEPARIN SOD 5000 UNIT/0.5 ML CARP SQ SCH (08:36)
[2017-11-03] MEDS ORDERED: POTASSIUM CHLORIDE 10 MEQ TABCR PO ONE (10:00)
[2017-11-03] MEDS: FERROUS SULFATE 325 MG TAB PO SCH (10:06)
[2017-11-03] MEDS ORDERED: AMOX875T PO ×2 (13:55→15:51)
[2017-11-03] MEDS ORDERED: VNTHFA/IN INH ×2 (13:55→15:51)
[2017-11-03] MEDS ORDERED: PRD20 PO ×2 (13:55→15:51)
--- NOTE | 2017-11-03 14:00 | Discharge Instructions ---
Discharge Instructions Date of Service Nov 03, 2017. Admission Reason for Admission: Altered Mental Status, Pneumonia Discharge Discharge Diagnosis / Problem: Pneumonia, Acute hypoxic respiratory failure Discharge Goals Goal(s): Improve disease control, Diagnostic testing, Therapeutic intervention Activity Recommendations Activity Limitations: as noted below Exercise/Sports Limitations: gradually increase as tolerated Shower/Bathe: no limitations . Instructions / Follow-Up Instructions / Follow-Up You were admitted with an alteration in your mental status and found to have pneumonia, low blood pressure, and low oxygen levels. This has all significantly improved. You were treated with IV antibiotics, oxygen, and IV fluids. Please finish out a course of Augmentin 1 tab twice a day for 2 more days to complete your antibiotics course. You will also need to finish out a course of prednisone for inflammation in your lungs. Please follow up with your PCP within 1-2 weeks. You should have a follow up chest xray in about 3-4 weeks to ensure the pneumonia has completely cleared. Current Hospital Diet Patient's current hospital diet: Diabetes Type 2 Diet Discharge Diet Recommended Diet: Diabetes Type 2 Diet Procedures Procedures Performed: Chest xray Pending Studies Studies pending at discharge: yes List of pending studies: Final Blood Culture result Laboratory Results Hemoglobin A1c Test 08/29/17 14:13 Range/Units Estimated Average Glucose 111 mg/dl Hemoglobin A1c 5.5 4.5-5.6 % Medical Emergencies . Who to Call and When: Medical Emergencies: If at any time you feel your situation is an emergency, please call 911 immediately. . Non-Emergent Contact Non-Emergency issues call your: Primary Care Provider Call Non-Emergent contact if: you have a fever, temperature is above 101, you have any medication questions . . "Provider Documentation" section prepared by Nanda Javed. .
[2017-11-03 14:13] VITALS: BP 112/78; TEMP 36.5; O2SAT 96
[2017-11-03 14:16] VITALS: PULSE 90; O2SAT 94
--- NOTE | 2017-11-03 14:20 | Discharge Summary ---
Discharge Summary Date of Service Nov 03, 2017. Discharge Summary Admission Date: Oct 30, 2017 at 01:34 Discharge Date: Nov 03, 2017 Discharge Disposition: Home Principal Diagnosis: Pneumonia, Acute hypoxic respiratory failure Problems/Secondary Diagnoses: Asymptomatic funguria Acute bronchitis Acute Metabolic encephalopathy Hypotension Hypertension Sinus tachycardia BPH Diabetes mellitus II Severe Protein Calorie malnutrition Underweight, BMI 15.2 Hypoalbuminemia Proteinuria Hyperlipidemia GERD Peripheral neuropathy Immunizations: Have You Had Influenza Vaccine: Yes Influenza Vaccine Date: Jun 03, 2012 History of Tetanus Vaccine?: Unknown History of Pneumococcal: Yes History of Hepatitis B Vaccine: Unknown Procedures: Chest xray x 2 Consultations: None Medication Reconciliation New Medications: Albuterol Hfa (Ventolin Hfa) 200 Puffs/01578 Mcg Aers 2 PUFFS INH Q4H PRN for SOB/Wheezing, #1 INHALER Amoxicillin & Pot Clavulanate (Augmentin 875-125 mg) 1 Tab Tab 875 MG PO BID, #4 TAB Prednisone (Prednisone) 20 Mg Tab 20 MG PO DAILY, #3 TAB x 2 days then 10mg daily x 2 days, then STOP Continued Medications: Baclofen (Baclofen) 10 Mg Tab 10 MG PO BID PRN for Headache may take with tramadol Cholecalciferol (Vitamin D3) 2,000 Unit Cap 1 CAP PO DAILY for 30 Days, #30 CAP 3 Refills Dutasteride (Avodart) 0.5 Mg Cap 0.5 MG PO DAILY, CAP Esomeprazole Magnesium (Nexium) 40 Mg Cap 40 MG PO QAM Ferrous Sulfate (Kp Ferrous Sulfate) 325 Mg Tab 325 MG PO DAILY for 30 Days, #30 TAB 3 Refills Gabapentin (Neurontin) 800 Mg Tab 800 MG PO TID, TAB Glimepiride (Glimepiride) 1 Mg Tab 1 TAB PO QAM PRN for BSG >200 for 90 Days, #90 TAB 3 Refills TAKE IN ADDITION TO DAILY 1 MG IF BSG >200. Metoprolol Tartrate (Lopressor) 25 Mg Tab 25 MG PO BID Multivitamin (Multivitamin) Tab 1 TAB PO QAM, 0 Refills Nutritional Supplements (Ensure High Protein) 1 Liq Liq 8 OZ PO DAILY take around lunch time Polyethylene Glycol 3350 (Miralax) 1 Pow Pow 17 GM PO QAM, #527 GM Sennosides-Docusate Sodium (Senna S) 1 Tab Tab 1 TAB PO BID Simvastatin (Simvastatin) 20 Mg Tab 20 MG PO QPM Tamsulosin Hcl (Flomax) 0.4 Mg Cap 0.4 MG PO HS, CAP Tramadol (Ultram) 50 Mg Tab 50 MG PO Q4H PRN for Pain, TAB Discharge Exam Feeling well, eating better today. RN reports taking pills and out of bed to chair a few times today. Pt says he is coughing but not SOB, no CP. Review of Systems: Constitutional: No fever Eyes: No problem reported ENT: No problem reported Respiratory: + cough, + sputum Cardiovascular: No problem reported Abdomen: No problem reported Musculoskeletal: No problem reported Genitourinary - Male: No urinary retention, No problem reported Neurologic: No problem reported Psychiatric: No problem reported Endocrine: No problem reported Hematologic / Lymphatic: No problem reported Integumentary: No problem reported Physical Exam: General Appearance: + cachetic (with temporal wasting) Eyes: normal inspection, sclerae normal ENT: hearing grossly normal, pharynx normal Neck: trachea midline, + pertinent finding (severe torticollis to the left but able to actively rotate head almost to midline for brief periods) Respiratory/Chest: no respiratory distress, no accessory muscle use, + crackles (at left base, moving air throughout, a few mild scattered wheezes) Cardiovascular: regular rate, rhythm, no edema, no gallop, no murmur Abdomen / GI: normal bowel sounds, non tender, soft Extremities: normal inspection, no calf tenderness, normal capillary refill , no pedal edema Neurologic/Psychiatric: alert, normal mood/affect Skin: normal color, warm/dry, no rash Hospital Course This pt is an 86 yo M with a h/o severe torticollis, BPH with LUTS, HTN, DMII, dyslipidemia, GERD, and peripheral neuropathy, here with acute confusion, cough , and acute hypoxic respiratory failure. Was found to have pneumonia on chest xray. Suspected aspiration PNA/Acute hypoxic respiratory failure/Acute bonchitis/ Acute Metabolic encephalopathy - continue Zosyn IV (started 10/30) - downgrade to oral abx upon discharge - appears hx of UTI was when he had an indwelling catheter, however no longer has indwelling - a deras was placed on 10/31 - deras cath out and passing void trial. - Started prednisone 40 mg 11/01, continue daily and plan to taper off starting tomorrow - Change duonebs to xopenex - Will give 1 dose of Lasix 20 mg PO as pt was heavily volume resuscitated at time of admission with 6-7L, this may be playing a role in coarse breath sounds. Breath sounds overall sound improved today. - Flutter, incentive spirometry - Speech therapy unable to do video swallow d/t severe torticollis. Pt tolerating diet without difficulty, no further recs. - Appreciate recs. - Follow urine culture growing yeast not allyn. no further tx. - No leukocytosis, afebrile overnight Hypotension w/ hx of hypertension - initially held metoprolol tartrate 25 mg BID with borderline hypotension - received IVFs, now resolved - Restart home metoprolol 25 mg BID 4/5 Tachycardia - Possible that duonebs are contributing to this - change to xopenex - EKG obtained and reviewed - no acute findings BPH-- Continue tamsulosin 0.4 mg p.o. at bedtime and Avodart 0.5 mg p.o. daily. - hx of TURP with indwelling catheter which has since been removed used to be the cause of recurrent UTIs - follows with Dr. Barnard as outpt. Diabetes mellitus-- Hold glimepiride. Placed on Accu-Cheks achs and ISS Severe Protein Calorie malnutrition - BMI 15.2, albumin low at 2.0 - Continue boost with meals. - flavor per pt request Hyperlipidemia-- continue simvastatin 20 mg p.o. in the evening. GERD--change Nexium to pantoprazole 40 mg daily. Peripheral neuropathy-- Continue gabapentin 800 mg p.o. 3 times daily. DVT ppx: heparin subq CODE: FULL Disposition: Resident of [facility] 1. pneumonia, b/l, possibly aspiration - day #5 of abx; can likely transition to PO augmentin tomorrow; complete 7-10 days of abx in total 2. possible UTI - ruled out; insignificant amount of yeast; deras is out; would not Rx 3. deras trauma - resolved 4. protein calorie malnutrition, severe - despite shelter stating he eats well, his albumin was only 2 at presentation, and his BMI is only 15 -- unsure how much w/u to do for this; defer to his outpatient physicians 5. sepsis 2nd to #1, #2 - resolving/resolved 6. reactive bronchitis to #1 - cont nebs, cont prednisone; repeat cxr last evening no worse 7. significant volume excess since admission - lasix 20mg po x 1 PT, OT bibiana completed - ok to return to [facility] Total Time Spent: Greater than 30 minutes This includes examination of the patient, discharge planning, medication reconciliation, and communication with other providers. Discharge Instructions Please refer to the electronic Patient Visit Report (Discharge Instructions) for additional information. Follow-Up PCP within 1-2 weeks Additional Copies To Monika Zabala C.R.N.P.
== END 2017-11-03 15:19 | disposition home or self-care (01) | DRG 871 ==
LOC: EDBD 21:58 → C.EDB 21:59 → C.MS2W 10-30 01:34 → ENRESERV 10-30 01:43
PROVIDERS: ADMIT Hospitalist; ATTEND Family Medicine
DX: A41.9 Sepsis, unspecified organism (principal); J69.0 Pneumonitis due to inhalation of food and vomit; N39.0 Urinary tract infection, site not specified; G93.41 Metabolic encephalopathy; J96.01 Acute respiratory failure with hypoxia; Z68.1 Body mass index [BMI] 19.9 or less, adult; Z86.19 Personal history of other infectious and parasitic diseases; E43 Unspecified severe protein-calorie malnutrition; I71.4 Abdominal aortic aneurysm, without rupture; B49 Unspecified mycosis; I48.91 Unspecified atrial fibrillation; E11.40 Type 2 diabetes mellitus with diabetic neuropathy, unspecified; N40.0 Benign prostatic hyperplasia without lower urinary tract symptoms; I10 Essential (primary) hypertension; E78.5 Hyperlipidemia, unspecified; M43.6 Torticollis

== ENCOUNTER → 2017-11-09 | Outpatient (CLI) | payer OTHER ==
[~2017-11-09] MED LIST changes: +AMOX875T PO; -CIPR-255 PO; -DICL1GEL12 TOP; +DUTA0.5C PO; +FERR1TAB13 PO; +PRD20 PO; +RBTDMUDC5 PO; +TAMS0.4C38 PO; +VANC1SUS PO; +VNTHFA/IN INH
--- NOTE | 2017-11-09 16:05 | DIAGNOSTIC IMAGING REPORT ---
CHEST 2 VIEWS ROUTINE HISTORY: J18.9 Pneumonia, LAB FIRST COMPARISON: Chest 11/01/2017. FINDINGS: Advanced emphysema. No pneumothorax. The heart is normal in size. Left lower lobe airspace opacity and a small left pleural effusion persist. Mild interstitial thickening which is likely chronic. Multiple compression deformities seen within the thoracic and lumbar spine are again noted. IMPRESSION: 1. Left lower lobe airspace opacity and a small left pleural effusion. This favors a pneumonia. One month chest x-ray follow-up is recommended to ensure resolution. 2. Emphysema. 3. Multiple compression deformities seen throughout the thoracic and lumbar spine. These are similar to the prior study and likely old. Electronically signed by: Jovon Bullard M.D. 11/09/2017 4:04 PM Dictated Date/Time: 11/09/2017 4:01 PM
== END | disposition home or self-care (01) ==
LOC: C.LAB 15:17
PROVIDERS: ATTEND Nurse Practitioner
DX: J34.9 Unspecified disorder of nose and nasal sinuses (principal); R91.8 Other nonspecific abnormal finding of lung field; J90 Pleural effusion, not elsewhere classified; R19.7 Diarrhea, unspecified

== ENCOUNTER 2017-12-15 09:49 | Inpatient (IN) | payer OTHER ==
[~2017-12-15] VITALS: Ht 160 cm; Wt 38.1 kg
[2017-12-15] VITALS (13 sets, daily range): BP systolic 102–114; BP diastolic 53–67; PULSE 95–111; TEMP 36.4; O2SAT 94–100; Ht 160 cm; Wt 38.1 kg
[~2017-12-15 09:49] MED LIST changes: -AMOX875T PO; -PRD20 PO; -SENN-91 PO; -TRAM-10 PO
[2017-12-15] MEDS ORDERED: SODIUM CHLORIDE 0.9% 500ML 500 ML IV STA (10:16)
[2017-12-15 10:25] LABS: BASO % 0.4 %; BASO ABS # 0.03 K/uL (0-0.2); EOS % 2.3 %; EOS ABS # 0.17 K/uL (0-0.5); HEMATOCRIT 39.3 % (42-52); HEMOGLOBIN 12.2 g/dL (14.0-18.0); IG# 0.02 K/uL (0.00-0.02); LYMPH % 15.8 %; LYMPH ABS # 1.19 K/uL (1.2-3.4); MEAN CELL VOLUME 100.3 fL (80-100); MEAN CORPUSCULAR HEMOGLOBIN 31.1 pg (25-34); MEAN PLATELET VOLUME 9.5 fL (7.4-10.4); MONO % 9.2 %; MONO ABS # 0.69 K/uL (0.11-0.59); NEUT ABS # 5.41 K/uL (1.4-6.5); PLATELET COUNT 154 K/uL (130-400); RED CELL DISTRIBUTION WIDTH SD 58.8 fL (36.4-46.3); WHITE BLOOD COUNT 7.51 K/uL (4.8-10.8)
--- NOTE | 2017-12-15 10:36 | EMERGENCY ROOM VISIT NOTE ---
History Report prepared by Arron: Kyle Ngo Under the Supervision of: Dr. Sebastian Rivera M.D. First contact with patient: 10:07 Stated Complaint: LETHARGIC History of Present Illness The patient is an 87 year old male who presents to the Emergency Room with complaints of constant unresponsiveness beginning two hours ago. The patient resides at [facility] and receives 24/7, supervised care. He eats independently and makes his own medical decisions. The patient's caregiver states she left him yesterday at 1600, and he was acting perfectly normal. She reports he completed PT and was walking with his walker. The caregiver notes he went to bed at 2030 last evening and took him medication. She states she tried to wake him at 0800, and he would not respond. The caregiver reports she tried shaking his legs and moving him. She notes he has not been drinking enough water lately. The caregiver states he was diagnosed with pneumonia and a UTI on October 30. The caregiver notes he went to [facility] and was discharged. She states he also went back to rehab for an unknown cause on November 10. The caregiver reports the first time he was admitted, he was evaluated by his PCP. She notes the second time he was not very responsive and similar to today. The caregiver states she patient does not have a code status or POA. She reports he takes tramadol for headaches, and he took it twice yesterday. 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 HPI limited secondary to the patient's unresponsiveness. Source of History: caregiver History Limited By: other (unresponsiveness) Review of Systems ROS limited secondary to the patient's unresponsiveness. Past Medical & Surgical Medical Problems: (1) ABDOM AORTIC ANEURYSM (2) Altered mental status (3) Anemia (4) ATRIAL FIBRILLATION (5) Benign hypertension (6) Bronchiectasis (7) C. difficile colitis (8) Carotid artery stenosis (9) Degeneration of cervical intervertebral disc (10) DIAB W NEURO MANIFEST, TYPE II OR UNSPEC TYPE, NOT UNCNTRLD (11) Diabetic peripheral neuropathy (12) Dyslipidemia (13) Dysphagia (14) FX C2 VERTEBRA-CLOSED (15) FX C5 VERTEBRA-CLOSED (16) FX C6 VERTEBRA-CLOSED (17) Gastroesophageal reflux disease (18) Helicobacter pylori gastrointestinal tract infection (19) Influenza A (20) Inguinal hernia (21) LLL pneumonia (22) Peptic ulcer (23) PERSONAL HX OF TIA,& CEREBRAL INFARCTION W/OUT RES DEFICITS (24) PNA (pneumonia) (25) Proteinuria (26) SBO (small bowel obstruction) (27) Sepsis (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 (29) Vitamin B12 deficiency (non anemic) (30) Vitamin D deficiency Family History Unable to obtain d/t lethargy Social History Smoking Status: Unknown if Ever Smoked Alcohol Use: none Drug Use: none Marital Status: single Housing Status: assisted living Occupation Status: retired, disabled Current/Historical Medications Scheduled Cholecalciferol (Vitamin D3), 2,000 UNITS PO DAILY Dutasteride (Avodart), 0.5 MG PO DAILY Esomeprazole Magnesium (Nexium), 40 MG PO QAM Ferrous Sulfate (Ferrous Sulfate), 325 MG PO 3XWK Gabapentin (Gabapentin), 600 MG PO BID Metoprolol Tartrate (Lopressor), 12.5 MG PO BID Multivitamin (Multivitamin), 1 TAB PO QAM Sennosides-Docusate Sodium (Sennalax-S), 1 TAB PO BID Simvastatin (Simvastatin), 20 MG PO QPM Tamsulosin Hcl (Flomax), 0.4 MG PO HS Scheduled PRN Baclofen (Baclofen), 10 MG PO BID PRN for Headache Glimepiride (Glimepiride), 0.5 TAB PO QAM PRN for BSG >200 Polyethylene Glycol 3350 (Miralax), 17 GM PO QAM PRN for Constipation Tramadol (Ultram), 50 MG PO Q6H PRN for Pain Allergies Coded Allergies: No Known Allergies (Verified , 12/15/17) Physical Exam Vital Signs Date Time Temp Pulse Resp B/P (MAP) Pulse Ox O2 Delivery O2 Flow Rate FiO2 12/15/17 13:30 107 18 110/64 97 BiPAP 12/15/17 13:14 99 12/15/17 12:45 102 97 40 12/15/17 12:43 111 19 94 BiPAP/CPAP 40 12/15/17 11:50 Nasal Cannula 12/15/17 11:32 112 12 116/70 99 Nasal Cannula 2.0 12/15/17 11:10 104 12 114/64 99 Nasal Cannula 2.0 12/15/17 10:31 90 10 106/62 100 Nasal Cannula 2.0 12/15/17 10:21 87 10 111/61 100 Nasal Cannula 4.0 12/15/17 10:01 89 10 103/59 100 Nasal Cannula 4.0 12/15/17 10:00 90 12/15/17 10:00 92 12 99 12/15/17 09:55 37.1 90 10 104/51 99 Nasal Cannula 4.0 12/15/17 09:50 100 Nasal Cannula 4.0 Physical Exam GENERAL: GCS 9, cachectic-appearing, VSS HENT: Normocephalic, atraumatic. Oropharynx unremarkable except for dry, crack mucous membranes. EYES: Normal conjunctiva. Sclera non-icteric. NECK: Head rotated to the left c/w h/o torticollis. No JVD. RESPIRATORY: Rhonchi in the left lung torres CARDIAC: Regular rate, normal rhythm. Extremities warm and well perfused. Pulses equal. ABDOMEN: Soft, non-distended. No tenderness to palpation. No rebound or guarding. No masses. RECTAL: Deferred. MUSCULOSKELETAL: Chest examination reveals no tenderness. The back is symmetrical on inspection without obvious abnormality. There is no CVA tenderness to palpation. No joint edema. LOWER EXTREMITIES: Calves are equal size bilaterally and non-tender. No edema. No discoloration. NEURO: Moving all extremities. Opens eyes and makes sounds to pain and localizes pain. SKIN: No rash or jaundice noted. Medical Decision & Procedures ER Provider Diagnostic Interpretation: Radiology results as stated below per my review and radiologist interpretation: HEAD CT NONCONTRAST CT DOSE: 1617.05 mGy.cm HISTORY: Altered mental status TECHNIQUE: Multiaxial CT images of the head were performed without the use of intravenous contrast. Automated exposure control was utilized for this study. A dose lowering technique was utilized adhering to the principles of ALARA. Comparison: Head CT 10/09/2017. Findings: Motion artifact. Atrophy and white matter hypodensity remains unchanged. This favors microvascular ischemic change. The ventricles are stable in size. There is no mass, hematoma, midline shift, or acute infarct. 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 There are old lacunar infarcts within the bilateral cerebellar hemispheres and right basal ganglia. Small retention cyst within the left max a sinus. The mastoid air cells are partially opacified. This remains unchanged. Thinning within the left parietal bone remains unchanged. No calvarial fractures. Impression: No significant change compared to the prior study. No definite acute intracranial abnormality. Mild motion artifact. Electronically signed by: Jovon Bullard M.D. 12/15/2017 11:12 AM Dictated Date/Time: 12/15/2017 11:08 AM CHEST ONE VIEW PORTABLE HISTORY: Evaluate Fever/Sepsis COMPARISON: Chest 11/10/2017. FINDINGS: No pneumothorax. Rotated study. Small left pleural effusion and left basilar densities have progressed. Interstitial and vascular thickening has also slightly progressed. The heart remains mildly enlarged. There is a trace right pleural effusion. IMPRESSION: 1. Mild interstitial pulmonary edema and bilateral pleural effusions. This has slightly progressed. 2. Patchy densities at the left lung base have also slightly progressed. This could represent atelectasis or pneumonia. Electronically signed by: Jovon Bullard M.D. 12/15/2017 11:55 AM Dictated Date/Time: 12/15/2017 11:54 AM Laboratory Results 12/15/17 10:05 Red Blood Count 3.92, Mean Corpuscular Volume 100.3, Mean Corpuscular Hemoglobin 31.1, Mean Corpuscular Hemoglobin Concent 31.0, Mean Platelet Volume 9.5, Neutrophils (%) (Auto) 72.0, Lymphocytes (%) (Auto) 15.8, Monocytes (%) ( Auto) 9.2, Eosinophils (%) (Auto) 2.3, Basophils (%) (Auto) 0.4, Neutrophils # ( Auto) 5.41, Lymphocytes # (Auto) 1.19, Monocytes # (Auto) 0.69, Eosinophils # ( Auto) 0.17, Basophils # (Auto) 0.03 12/15/17 10:30 Test 12/15/17 10:05 12/15/17 10:30 12/15/17 11:25 12/15/17 11:30 White Blood Count 7.51 K/uL (4.8-10.8) Red Blood Count 3.92 M/uL (4.7-6.1) Hemoglobin 12.2 g/dL (14.0-18.0) Hematocrit 39.3 % (42-52) Mean Corpuscular Volume 100.3 fL (80-100) Mean Corpuscular Hemoglobin 31.1 pg (25-34) Mean Corpuscular Hemoglobin Concent 31.0 g/dl (32-36) Platelet Count 154 K/uL (130-400) Mean Platelet Volume 9.5 fL (7.4-10.4) Neutrophils (%) (Auto) 72.0 % Lymphocytes (%) (Auto) 15.8 % Monocytes (%) (Auto) 9.2 % Eosinophils (%) (Auto) 2.3 % Basophils (%) (Auto) 0.4 % Neutrophils # (Auto) 5.41 K/uL (1.4-6.5) Lymphocytes # (Auto) 1.19 K/uL (1.2-3.4) Monocytes # (Auto) 0.69 K/uL (0.11-0.59) Eosinophils # (Auto) 0.17 K/uL (0-0.5) Basophils # (Auto) 0.03 K/uL (0-0.2) RDW Standard Deviation 58.8 fL (36.4-46.3) RDW Coefficient of Variation 16.0 % (11.5-14.5) Immature Granulocyte % (Auto) 0.3 % Immature Granulocyte # (Auto) 0.02 K/uL (0.00-0.02) Prothrombin Time 10.0 SECONDS (9.0-12.0) Prothromb Time International Ratio 1.0 (0.9-1.1) Anion Gap 0.0 mmol/L (3-11) Estimated GFR () 81.2 Estimated GFR (Non- 70.0 BUN/Creatinine Ratio 19.9 (10-20) Calcium Level 8.6 mg/dl (8.5-10.1) Phosphorus Level 3.6 mg/dl (2.5-4.9) Magnesium Level 1.9 mg/dl (1.8-2.4) Total Bilirubin 0.2 mg/dl (0.2-1) Direct Bilirubin < 0.1 mg/dl (0-0.2) Aspartate Amino Transf (AST/SGOT) 20 U/L (15-37) Alanine Aminotransferase (ALT/SGPT) 17 U/L (12-78) Alkaline Phosphatase 64 U/L (45-117) Total Creatine Kinase 33 U/L (39-308) Troponin I 0.032 ng/ml (0-0.045) Pro-B-Type Natriuretic Peptide 1325 pg/ml (0-1800) Total Protein 6.5 gm/dl (6.4-8.2) Albumin 2.2 gm/dl (3.4-5.0) Lipase 92 U/L (73-393) Procalcitonin 0.07 ng/ml (0-0.5) Urine Color YELLOW Urine Appearance CLEAR (CLEAR) Urine pH 5.5 (4.5-7.5) Urine Specific [place] 1.016 (1.000-1.030) Urine Protein 1+ (NEG) Urine Glucose (UA) NEG (NEG) Urine Ketones NEG (NEG) Urine Occult Blood NEG (NEG) Urine Nitrite NEG (NEG) Urine Bilirubin NEG (NEG) Urine Urobilinogen NEG (NEG) Urine Leukocyte Esterase MODERATE (NEG) Urine WBC (Auto) >30 /hpf (0-5) Urine RBC (Auto) 0-4 /hpf (0-4) Urine Hyaline Casts (Auto) 1-5 /lpf (0-5) Urine Epithelial Cells (Auto) >30 /lpf (0-5) Urine Bacteria (Auto) NEG (NEG) Venous Blood pH 7.27 (7.36-7.41) Venous Blood Partial Pressure CO2 74 mmHg (38.0-50.0) Venous Blood Partial Pressure O2 29 mmHg Venous Blood HCO3 33 mmol/L Venous Blood Oxygen Saturation < 60.0 % Venous Blood Base Excess 4.1 mEq/L Lactic Acid Level 1.3 mmol/L (0.4-2.0) Test 12/15/17 13:32 Arterial Blood pH 7.26 (7.35-7.45) Arterial Blood Partial Pressure CO2 73 mmHg (35-46) Arterial Blood Partial Pressure O2 82 mm/Hg (80-95) Arterial Blood HCO3 32 mmol/L (19-24) Arterial Blood Oxygen Saturation 94.2 % (90-95) Arterial Blood Base Excess 3.4 mEq/L (-9-1.8) Arterial Blood Gas Delivery RA Scott Test POS (POS) Laboratory results reviewed by me Medications Administered Medications (Trade) Dose Ordered Sig/Kay Route Start Time Stop Time Status Last Admin Dose Admin Sodium Chloride 500 ml @ 999 mls/hr Q31M STAT IV 12/15/17 10:16 12/15/17 10:46 DC 12/15/17 10:35 999 MLS/HR Methylprednisolone Sodium Succinate (Solu-Medrol IV) 125 mg NOW STAT IV 12/15/17 12:07 12/15/17 12:11 DC 12/15/17 12:27 125 MG Albuterol/ Ipratropium (Duoneb) 12 ml ONE ONCE INH 12/15/17 12:15 12/15/17 12:16 DC 12/15/17 12:40 12 ML Vancomycin HCl (Vancomycin 1gm Ed/Asu Omnicell) 1 gm NOW STAT IV 12/15/17 12:07 12/15/17 12:11 DC 12/15/17 13:11 1 GM Piperacillin Sod/ Tazobactam Sod (Zosyn Iv) 4.5 gm NOW STAT IV 12/15/17 12:07 12/15/17 12:11 DC 12/15/17 12:27 4.5 GM Ondansetron HCl (Zofran Inj) 4 mg NOW STAT IV 12/15/17 12:10 12/15/17 12:11 DC 12/15/17 12:26 4 MG ECG Per My Interpretation Indication: weakness Rate (beats per minute): 104 Rhythm: sinus tachycardia Findings: no acute ischemic change, no ectopy ED Course 1009: The patient was evaluated in room B07. A complete history and physical exam was performed. 1038: I reevaluated the patient. He is receiving fluids. 1224: Upon reexamination, the patient was awake and his eyes were open. He is following commands and answering his name. His GCS in now 14. I discussed the test results and treatment plan with his caregiver. The patient will be evaluated for further management. 1232: I discussed the patient's case with Dr. Garcia, [facility] Hospitalist. The patient will be evaluated for further management and care. Medical Decision I reviewed the patient's past medical history, medications, and the nursing notes as described above. Differential diagnosis: Etiologies such as metabolic, infection, hypo/hyperglycemia, electrolyte abnormalities, cardiac sources, intracerebral event, toxicologic, neurologic, as well as others were entertained. 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 living per [facility]. Of note, the patient was admitted several weeks ago for pneumonia however the patient's aide reports that she saw the patient yesterday and he was doing fine though he does have a history of poor fluid intake. On arrival the patient will open eyes to painful stimulus and moan as well as localizes pain thus with a GCS of 9. According to the patient's aide at the bedside he is a full code and had been making on his own medical decisions. There is a nephew who is the closest relative who is being contacted. Despite the patient's GCS of 9 given the patient's age and comorbidities I had serious reservations about intubating this patient given likely poor outcome, thus we gave the opportunity to the patient to improve with IV fluids which he subsequently did achieving a GCS of [address] head negative. Labs were notable for hypercapnia in the 70s with a pH of 7.2. I discussed with the patient the recommendation for BiPAP which he was initially resistant to but was willing to try. Otherwise patient was ordered for Solu-Medrol and duo nebs. Chest x-ray concerning for pneumonia and UA with question infection. Given the patient's recent hospitalizations and altered mental status on arrival will treat with broad-spectrum antibiotics for now. Case was discussed with Dr. Garcia, [facility] hospitalist, who will evaluate the patient for admission. Head Trauma GCS Score: 9 Medication Reconcilliation Current Medication List: was personally reviewed by me Blood Pressure Screening Patient's blood pressure: Normal blood pressure Blood pressure disposition: Did not require urgent referral Consults Time Called: 1225 Consulting Physician: Dr. Garcia [facility] Hospitalist Returned Call: 1232 I discussed the patient's case with Dr. Garcia [facility] Hospitalist. The patient will be evaluated for further management and care. Impression Primary Impression: Acute respiratory failure with hypoxia and hypercapnia Additional Impressions: PNA (pneumonia) UTI (urinary tract infection) Critical Care I have personally spent greater than 80 minutes of critical care time in the direct management of this patient. This includes bedside care, interpretation of diagnostic studies, and testing, discussion with consultants, patient, and family members, and other required patient management activities. This 80 minutes is in excess of all separately billable procedures. Scribe Attestation The scribe's documentation has been prepared under my direction and personally reviewed by me in its entirety. I confirm that the note above accurately reflects all work, treatment, procedures, and medical decision making performed by me. Departure Information Dispostion Being Evaluated By Hospitalist Referrals Monika Zabala, C.R.N.P. (PCP) Problem Qualifiers
[2017-12-15 11:04] LABS: ALBUMIN 2.2 gm/dl (3.4-5.0); ALKALINE PHOSPHATASE 64 U/L (45-117); ALT/SGPT 17 U/L (12-78); AST/SGOT 20 U/L (15-37); BLOOD UREA NITROGEN 20 mg/dl (7-18); CALCIUM 8.6 mg/dl (8.5-10.1); CARBON DIOXIDE 34 mmol/L (21-32); CREATININE 0.98 mg/dl (0.60-1.40); GLUCOSE 125 mg/dl (70-99); LIPASE 92 U/L (73-393); PHOSPHORUS 3.6 mg/dl (2.5-4.9); POTASSIUM 5.2 mmol/L (3.5-5.1); SODIUM 140 mmol/L (136-145); TOTAL PROTEIN 6.5 gm/dl (6.4-8.2)
--- NOTE | 2017-12-15 11:13 | DIAGNOSTIC IMAGING REPORT ---
HEAD CT NONCONTRAST CT DOSE: 1617.05 mGy.cm HISTORY: Altered mental status TECHNIQUE: Multiaxial CT images of the head were performed without the use of intravenous contrast. Automated exposure control was utilized for this study. A dose lowering technique was utilized adhering to the principles of ALARA. Comparison: Head CT 10/09/2017. Findings: Motion artifact. Atrophy and white matter hypodensity remains unchanged. This favors microvascular ischemic change. The ventricles are stable in size. There is no mass, hematoma, midline shift, or acute infarct. 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 There are old lacunar infarcts within the bilateral cerebellar hemispheres and right basal ganglia. Small retention cyst within the left max a sinus. The mastoid air cells are partially opacified. This remains unchanged. Thinning within the left parietal bone remains unchanged. No calvarial fractures. Impression: No significant change compared to the prior study. No definite acute intracranial abnormality. Mild motion artifact. Electronically signed by: Jovon Bullard M.D. 12/15/2017 11:12 AM Dictated Date/Time: 12/15/2017 11:08 AM
--- NOTE | 2017-12-15 11:56 | DIAGNOSTIC IMAGING REPORT ---
CHEST ONE VIEW PORTABLE HISTORY: Evaluate Fever/Sepsis COMPARISON: Chest 11/10/2017. FINDINGS: No pneumothorax. Rotated study. Small left pleural effusion and left basilar densities have progressed. Interstitial and vascular thickening has also slightly progressed. The heart remains mildly enlarged. There is a trace right pleural effusion. IMPRESSION: 1. Mild interstitial pulmonary edema and bilateral pleural effusions. This has slightly progressed. 2. Patchy densities at the left lung base have also slightly progressed. This could represent atelectasis or pneumonia. Electronically signed by: Jovon Bullard M.D. 12/15/2017 11:55 AM Dictated Date/Time: 12/15/2017 11:54 AM
[2017-12-15] MEDS ORDERED: METHYLPREDNISOLONE 125 MG VIAL IV STA (12:07)
[2017-12-15] MEDS ORDERED: PIPERACILLIN/TAZOBACTAM 4.5 GM/100ML D5W IV STA (12:07)
[2017-12-15] MEDS ORDERED: VANCOMYCIN 1GM ED/ASU OMNICELL IV STA (12:07)
[2017-12-15] MEDS ORDERED: NALOXONE HCL 0.4 MG/1 ML VIAL/CARP IV STA (12:10)
[2017-12-15] MEDS ORDERED: ONDANSETRON INJ 2 MG/ML 2 ML VIAL IV STA (12:10)
[2017-12-15] MEDS ORDERED: TRAM-10 PO (12:13)
[2017-12-15] MEDS ORDERED: NRN300 PO (12:13)
[2017-12-15] MEDS ORDERED: FERR325T5 PO (12:13)
[2017-12-15] MEDS ORDERED: SENN1TAB86 PO (12:13)
[2017-12-15] MEDS ORDERED: ALBUT/IPRATROP 3MG/0.5MG NEB 3 ML VIAL INH ONE (12:15)
[2017-12-15] MEDS ORDERED: SODIUM CHLORIDE 0.9% 1000ML 1,000 ML IV SCH (14:04)
[2017-12-15] MEDS ORDERED: ALUMINUM/MAGNESIUM/SIMETH (MAALOX MAX) 30 ML UDC PO PRN (14:15)
[2017-12-15] MEDS ORDERED: POLYETHYLENE (MIRALAX) 17 GM PACK PO PRN (14:15)
[2017-12-15] MEDS ORDERED: MAGNESIUM HYDROXIDE SUSP 30 ML UDC PO PRN (14:15)
[2017-12-15] MEDS ORDERED: ACETAMINOPHEN 325 MG TAB PO PRN (14:15)
[2017-12-15] MEDS ORDERED: METOPROLOL TARTRATE 1 MG/ML VIAL IV PRN (14:15)
[2017-12-15] MEDS ORDERED: ONDANSETRON INJ 2 MG/ML 2 ML VIAL IV PRN (14:15)
[2017-12-15] MEDS ORDERED: BACLOFEN 10 MG TAB PO PRN (14:15)
--- NOTE | 2017-12-15 14:25 | History and Physical ---
History & Physical Date & Time of Service: December 15, 2017 at 14:24 Chief Complaint: Lethargic Primary Care Physician: Monika Zabala, C.R.NDariuszPDariusz History of Present Illness Source: caregiver Mr. Rivera is an 87 y/o male with PMHx of Severe Torticollis and Kyphoscoliosis, Restrictive Lung Disease, BPH with LUTS S/P TURP, HTN, HLD, T2DM with Neuropathy, Chronic LLL Atelectasis, Severe Protein Calorie Malnutrition, GERD, AAA, and Intellectual Disability who presents to the ED due to lethargy. Patient is a resident of [facility]. HPI obtained from caregiver and ED note due to AMS. Patient was last reported baseline at 2030 after taking medications and prior to going to sleep. They state he has been doing well and no complaints. He was admitted in October x for suspected pneumonia then again for c. diff. He then went to [facility] for rehab and did well. He just returned to [facility] on 11/30/17. He just completed PT services at [facility] and was back at baseline. When the caregiver tried to wake him up at 0800 she could not get him to wake up. She notes that he has not been drinking a lot of water mostly just coffee and coke but appetite has been adequate considering. Caregiver states he was set up for night BiPAP however he cannot tolerate this and has not been using it. She is not sure if he was using it at [facility] but hasn't used it since back at home. He normally dose not utilize supplemental O2. Per documentation, patient was found to be 60-70% sats and improved to 100% sats on 4L prior to arrival to ED Reviewed previous admission as he came in with similar issues however was septic from c. diff colitis. He required BiPAP with quick resolution of his encephalopathy. He did not require intubation on previous admission. He was also evaluated by pulmonology at the time that suggested this was related to restrictive lung disease. Previous admission goals of care were attempted and initially his brother was going to file papers for POA however is 99 years old and it was suggested his Nephrew Brian who is in the process of becoming the POA legally. Caregiver was able to reach the nephew's daughter who talked to Brian and want him to "have a fighting chance" in regards to his code status. At this point patient is a full resuscitation. ABG obtained that supports a respiratory acidosis but is showing good compensation as bicarb is elevating. Findings do suggest element of chronic CO2 retention and likely mentation is from CO2 narcosis. Past Medical/Surgical History 1. Severe Torticollis and Kyphoscoliosis 2. Restrictive Lung Disease 3. BPH with LUTS S/P TURP 4. HTN 5. HLD 6. T2DM with Peripheral Neuropathy 7. Chronic LLL Atelectasis 8. Severe Protein Calorie Malnutrition 9. GERD 10. AAA 11. Intellectual Disability Family History Unable to obtain d/t lethargy Social History Smoking Status: Unknown if Ever Smoked Drug Use: none Marital Status: single Housing status: assisted living Occupational Status: retired, disabled Immunizations History of Influenza Vaccine: Yes Influenza Vaccine Date: Jun 03, 2012 History of Tetanus Vaccine?: Unknown History of Pneumococcal: Yes History of Hepatitis B Vaccine: Unknown Allergies Coded Allergies: No Known Allergies (Verified , 12/15/17) Home Medications Scheduled Cholecalciferol (Vitamin D3), 2,000 UNITS PO DAILY Dutasteride (Avodart), 0.5 MG PO DAILY Esomeprazole Magnesium (Nexium), 40 MG PO QAM Ferrous Sulfate (Ferrous Sulfate), 325 MG PO 3XWK Gabapentin (Gabapentin), 600 MG PO BID Metoprolol Tartrate (Lopressor), 12.5 MG PO BID Multivitamin (Multivitamin), 1 TAB PO QAM Sennosides-Docusate Sodium (Sennalax-S), 1 TAB PO BID Simvastatin (Simvastatin), 20 MG PO QPM Tamsulosin Hcl (Flomax), 0.4 MG PO HS Scheduled PRN Baclofen (Baclofen), 10 MG PO BID PRN for Headache Glimepiride (Glimepiride), 0.5 TAB PO QAM PRN for BSG >200 Polyethylene Glycol 3350 (Miralax), 17 GM PO QAM PRN for Constipation Tramadol (Ultram), 50 MG PO Q6H PRN for Pain Review of Systems ROS deferred due to AMS Physical Exam Vital Signs Date Time Temp Pulse Resp B/P (MAP) Pulse Ox O2 Delivery O2 Flow Rate FiO2 12/15/17 13:30 107 18 110/64 97 BiPAP 12/15/17 13:14 99 12/15/17 12:45 102 97 40 12/15/17 12:43 111 19 94 BiPAP/CPAP 40 12/15/17 11:50 Nasal Cannula 12/15/17 11:32 112 12 116/70 99 Nasal Cannula 2.0 12/15/17 11:10 104 12 114/64 99 Nasal Cannula 2.0 12/15/17 10:31 90 10 106/62 100 Nasal Cannula 2.0 12/15/17 10:21 87 10 111/61 100 Nasal Cannula 4.0 12/15/17 10:01 89 10 103/59 100 Nasal Cannula 4.0 12/15/17 10:00 90 12/15/17 10:00 92 12 99 12/15/17 09:55 37.1 90 10 104/51 99 Nasal Cannula 4.0 12/15/17 09:50 100 Nasal Cannula 4.0 General Appearance: no apparent distress, + cachetic Head: normocephalic, atraumatic Eyes: sclerae normal ENT: pharynx normal (but dry oral mucosa and is mouth breathing with BiPAP on) Respiratory/Chest: no respiratory distress, no accessory muscle use, + decreased breath sounds (no respiratory effort due to mentation and sound diminished but clear) Cardiovascular: no murmur, + tachycardia Abdomen/GI: normal bowel sounds, non tender (no grimacing on palpation), soft Extremities/Musculoskelatal: no pedal edema Neurologic/Psych: + pertinent finding (opens eyes and mumbles but largely obtunded) Skin: warm/dry Diagnostics Laboratory Results Results Past 24 Hours Test 12/15/17 10:05 12/15/17 10:30 12/15/17 11:25 12/15/17 11:30 Range/Units White Blood Count 7.51 4.8-10.8 K/uL Red Blood Count 3.92 4.7-6.1 M/uL Hemoglobin 12.2 14.0-18.0 g/dL Hematocrit 39.3 42-52 % Mean Corpuscular Volume 100.3 80-100 fL Mean Corpuscular Hemoglobin 31.1 25-34 pg Mean Corpuscular Hemoglobin Concent 31.0 32-36 g/dl Platelet Count 154 130-400 K/uL Mean Platelet Volume 9.5 7.4-10.4 fL Neutrophils (%) (Auto) 72.0 % Lymphocytes (%) (Auto) 15.8 % Monocytes (%) (Auto) 9.2 % Eosinophils (%) (Auto) 2.3 % Basophils (%) (Auto) 0.4 % Neutrophils # (Auto) 5.41 1.4-6.5 K/uL Lymphocytes # (Auto) 1.19 1.2-3.4 K/uL Monocytes # (Auto) 0.69 0.11-0.59 K/uL Eosinophils # (Auto) 0.17 0-0.5 K/uL Basophils # (Auto) 0.03 0-0.2 K/uL RDW Standard Deviation 58.8 36.4-46.3 fL RDW Coefficient of Variation 16.0 11.5-14.5 % Immature Granulocyte % (Auto) 0.3 % Immature Granulocyte # (Auto) 0.02 0.00-0.02 K/uL Prothrombin Time 10.0 9.0-12.0 SECONDS Prothromb Time International Ratio 1.0 0.9-1.1 Sodium Level 140 136-145 mmol/L Potassium Level 5.2 3.5-5.1 mmol/L Chloride Level 106 98-107 mmol/L Carbon Dioxide Level 34 21-32 mmol/L Anion Gap 0.0 3-11 mmol/L Blood Urea Nitrogen 20 7-18 mg/dl Creatinine 0.98 0.60-1.40 mg/dl Estimated GFR () 81.2 Estimated GFR (Non- 70.0 BUN/Creatinine Ratio 19.9 10-20 Random Glucose 125 70-99 mg/dl Calcium Level 8.6 8.5-10.1 mg/dl Phosphorus Level 3.6 2.5-4.9 mg/dl Magnesium Level 1.9 1.8-2.4 mg/dl Total Bilirubin 0.2 0.2-1 mg/dl Direct Bilirubin < 0.1 0-0.2 mg/dl Aspartate Amino Transf (AST/SGOT) 20 15-37 U/L Alanine Aminotransferase (ALT/SGPT) 17 12-78 U/L Alkaline Phosphatase 64 45-117 U/L Total Creatine Kinase 33 39-308 U/L Troponin I 0.032 0-0.045 ng/ml Pro-B-Type Natriuretic Peptide 1325 0-1800 pg/ml Total Protein 6.5 6.4-8.2 gm/dl Albumin 2.2 3.4-5.0 gm/dl Lipase 92 73-393 U/L Procalcitonin 0.07 0-0.5 ng/ml Urine Color YELLOW Urine Appearance CLEAR CLEAR Urine pH 5.5 4.5-7.5 Urine Specific [place] 1.016 1.000-1.030 Urine Protein 1+ NEG Urine Glucose (UA) NEG NEG Urine Ketones NEG NEG Urine Occult Blood NEG NEG Urine Nitrite NEG NEG Urine Bilirubin NEG NEG Urine Urobilinogen NEG NEG Urine Leukocyte Esterase MODERATE NEG Urine WBC (Auto) >30 0-5 /hpf Urine RBC (Auto) 0-4 0-4 /hpf Urine Hyaline Casts (Auto) 1-5 0-5 /lpf Urine Epithelial Cells (Auto) >30 0-5 /lpf Urine Bacteria (Auto) NEG NEG Venous Blood pH 7.27 7.36-7.41 Venous Blood Partial Pressure CO2 74 38.0-50.0 mmHg Venous Blood Partial Pressure O2 29 mmHg Venous Blood HCO3 33 mmol/L Venous Blood Oxygen Saturation < 60.0 % Venous Blood Base Excess 4.1 mEq/L Lactic Acid Level 1.3 0.4-2.0 mmol/L Test 12/15/17 13:32 Range/Units Arterial Blood pH 7.26 7.35-7.45 Arterial Blood Partial Pressure CO2 73 35-46 mmHg Arterial Blood Partial Pressure O2 82 80-95 mm/Hg Arterial Blood HCO3 32 19-24 mmol/L Arterial Blood Oxygen Saturation 94.2 90-95 % Arterial Blood Base Excess 3.4 -9-1.8 mEq/L Arterial Blood Gas Delivery RA Scott Test POS POS Microbiology Results 12/15/17 Blood Culture, Received Pending 12/15/17 Blood Culture, Received Pending 12/15/17 Urine Culture, Received Pending Diagnostic Radiology HEAD CT NONCONTRAST Findings: Motion artifact. Atrophy and white matter hypodensity remains unchanged. This favors microvascular ischemic change. The ventricles are stable in size. There is no mass, hematoma, midline shift, or acute infarct. 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 There are old lacunar infarcts within the bilateral cerebellar hemispheres and right basal ganglia. Small retention cyst within the left max a sinus. The mastoid air cells are partially opacified. This remains unchanged. Thinning within the left parietal bone remains unchanged. No calvarial fractures. Impression: No significant change compared to the prior study. No definite acute intracranial abnormality. Mild motion artifact. CHEST ONE VIEW PORTABLE FINDINGS: No pneumothorax. Rotated study. Small left pleural effusion and left basilar densities have progressed. Interstitial and vascular thickening has also slightly progressed. The heart remains mildly enlarged. There is a trace right pleural effusion. IMPRESSION: 1. Mild interstitial pulmonary edema and bilateral pleural effusions. This has slightly progressed. 2. Patchy densities at the left lung base have also slightly progressed. This could represent atelectasis or pneumonia. EKG Sinus tachycardia Otherwise normal ECG When compared with ECG of 10-NOV-2017 15:21, No significant change was found Impression Assessment and Plan Mr. Rivera is an 87 y/o male with PMHx of Severe Torticollis and Kyphoscoliosis, Restrictive Lung Disease, BPH with LUTS S/P TURP, HTN, HLD, T2DM with Neuropathy, Chronic LLL Atelectasis, Severe Protein Calorie Malnutrition, GERD, AAA, and Intellectual Disability who presents to the ED due to lethargy. Acute Respiratory Failure with Compensating Respiratory Acidosis with Hypercapnia: - Has Restrictive Lung Disease related to his scoliosis - appears to have R lung dominant but is hyperinflated - Patient placed on BiPAP with ABG showing compensation at this time -- Review of last admission showed improvement with mentation after night BiPAP usage - Will need to monitor O2 sats and avoid over-oxygenating leading to further CO2 retention/narcosis -- Goal sats 88-92% - Overnight sleep study from previous admission with 8854 seconds less than 88% seconds with recommendations for BiPAP at night however patient is intolerant of this and hasn't used it - Had concern for aspiration but was cleared by CEO on last admission however no formal swallow study due to body deformity it could not be obtained -- Diet recommendations - moist dental soft and fully upright for meals and for 15-30 minutes after; Keep HOB > 30 degrees - Will continue to monitor VBG and can keep BiPAP overnight or until mentation improves as patient may pull this off when more alert then can maintain sats at 88-92% when BiPAP removed - Procalcitonin is negative and likely this is not infection as he has no leukocytosis or fever. Will hold on further antibiotics at this time and obtain CXR PA/Lat in AM for better visualization if possible due to his body deformity - Lasix 10 mg IV x 1 dose due to evidence of edema on imaging and monitor output - echo from 2013 with normal EF and no mention of diastolic dysfunction - Methylprednisolone 40 mg IV Q8H at this time as it was noted prior to arrival he had wheezing - Ventolin nebs Q6H - Discussed with Dr. Leal due to concerns of possible intubation needs - agree that he is compensating and that he has chronic underlying issues - recommendations for iron lung/pneumonic vest on D/C if he can't tolerate bipap. Also recommendations for possible continue decrease in Gabapentin and Baclofen. Also recommended to consider Simvastatin D/C due to possible contribution from this - Keep NPO except meds - however will hold until mentation improves - Avoid Benzos and narcotics given respiratory status Metabolic Encephalopathy 2/2 Above: - Head CT unremarkable - continue to monitor with hopeful improvement with BiPAP placement; no direct findings to suggest infection HTN and HLD: - Stop Simvastatin and could consider D/C altogether given age the long-term benefit is not necessary and may be contributing to some musculoskeletal weakness - Lopressor 12.5 mg BID - will cover with Lopressor IV PRN for tachycardia given risk of rebound tachycardia until he can take or meds T2DM and Neuropathy: - Hold Glimeperide and Implement SSI - Gabapentin 600 mg BID - appears he may have been on 800 mg TID and this was addressed as outpatient - may need to further wean from 600 mg to promote improvement in mentation BPH with LUTS: - Will need to monitor urine output - can place [place] if issues with retention - will monitor Severe Protein Calorie Malnutrition: BMI 16 - When mentation improves will add Boost supplementation - does utilize at home DVT Prophylaxis: Heparin Code Status: FULL RESUSCITATION - Previous admission palliative was consulted for goals of care as patient does not have a POA and is chronically ill and cachectic. Brother was original plan with papers mailed to him however he is 99 years old. Per caregiver they are in the process of getting the Nephew Brian as POA who states "do whatever to give him a fighting chance" - This should be readdressed and formalized wishes obtained as patient appears chronically ill and progressively declining. At this time if respiratory status does not respond to non-invasive measures he may require intubation. Did discuss with Dr. Leal (urologic surgeon) Disposition: PT/OT - Caregiver states he may need rehab again pending course; social service consultation placed Resuscitation Status VTE Prophylaxis Will order VTE Prophylaxis: Yes
[2017-12-15] MEDS ORDERED: DEXTROSE 50% 50 ML SYR IV PRN (14:30)
[2017-12-15] MEDS ORDERED: FUROSEMIDE INJ 10 MG in SYRINGE 0 ML IV SCH (14:30)
[2017-12-15] MEDS ORDERED: GLUCOSE 40% GEL 15 GM TUBE PO PRN (14:30)
[2017-12-15] MEDS ORDERED: GLUCOSE 10 TABS/TUBE PO PRN (14:30)
[2017-12-15] MEDS ORDERED: CARBOHYDRATES FOR HYPOGLYCEMIA PO PRN (14:30)
[2017-12-15] MEDS ORDERED: GLUCAGON FOR INJ 1 MG VIAL SQ PRN (14:30)
[2017-12-15] MEDS: ALBUTEROL 0.083% NEBU SOLN 3 ML VIAL INH SCH ×2 (15:00→18:59)
[2017-12-15] MEDS ORDERED: INSULIN ASPART 100 UNITS/ML 3 ML PEN SC SCH (16:00)
[2017-12-15] MEDS ORDERED: NURSING VERBAL MED ORDER ONE (16:00)
[2017-12-15] MEDS: METHYLPREDNISOLONE IV 40 MG in SYRINGE 0 ML IV SCH ×2 (16:59→21:09)
[2017-12-15] MEDS: INSULIN ASPART 100 UNITS/ML 3 ML PEN SC SCH (18:31)
[2017-12-15] MEDS: METOPROLOL TARTRATE 25 MG TAB PO SCH (20:39)
[2017-12-15] MEDS: GABAPENTIN 300 MG CAP PO SCH (20:39)
[2017-12-15] MEDS: TAMSULOSIN HCL 0.4 MG CAP PO SCH (20:39)
[2017-12-15] MEDS: DOCUSATE SODIUM/SENNA 50/8.6MG TAB PO SCH (20:39)
[2017-12-15] MEDS: RANITIDINE HCL 150 MG TAB PO SCH (20:40)
[2017-12-15] MEDS: HEPARIN SOD 5000 UNIT/0.5 ML CARP SQ SCH (21:10)
[2017-12-16] VITALS (13 sets, daily range): BP systolic 87–109; BP diastolic 50–59; PULSE 92–112; TEMP 36.6–37.1; O2SAT 83–100
[2017-12-16] MEDS: INSULIN ASPART 100 UNITS/ML 3 ML PEN SC SCH ×5 (00:28→20:43)
[2017-12-16] MEDS: ALBUTEROL 0.083% NEBU SOLN 3 ML VIAL INH SCH ×4 (02:24→18:52)
[2017-12-16] MEDS: METHYLPREDNISOLONE IV 40 MG in SYRINGE 0 ML IV SCH (06:03)
[2017-12-16 06:29] LABS: HEMATOCRIT 35.5 % (42-52); HEMOGLOBIN 11.3 g/dL (14.0-18.0); MEAN CELL VOLUME 99.4 fL (80-100); MEAN CORPUSCULAR HEMOGLOBIN 31.7 pg (25-34); MEAN CORPUSCULAR HGB CONC 31.8 g/dl (32-36); MEAN PLATELET VOLUME 9.9 fL (7.4-10.4); PLATELET COUNT 141 K/uL (130-400); RED CELL DISTRIBUTION WIDTH CV 15.5 % (11.5-14.5); RED CELL DISTRIBUTION WIDTH SD 56.3 fL (36.4-46.3); WHITE BLOOD COUNT 6.73 K/uL (4.8-10.8)
[2017-12-16 07:09] LABS: CALCIUM 8.6 mg/dl (8.5-10.1); CREATININE 0.82 mg/dl (0.60-1.40); POTASSIUM 4.8 mmol/L (3.5-5.1)
[2017-12-16] MEDS: GABAPENTIN 300 MG CAP PO SCH ×2 (08:21→19:13)
[2017-12-16] MEDS: FERROUS SULFATE 325 MG TAB PO SCH (08:22)
[2017-12-16] MEDS: DOCUSATE SODIUM/SENNA 50/8.6MG TAB PO SCH ×2 (08:22→19:13)
[2017-12-16] MEDS: CHOLECALCIFEROL 1000 INTER.UNIT TAB PO SCH (08:22)
[2017-12-16] MEDS: RANITIDINE HCL 150 MG TAB PO SCH ×2 (08:23→19:13)
[2017-12-16] MEDS: MULTIVITAMIN TAB PO SCH (08:24)
[2017-12-16] MEDS: METOPROLOL TARTRATE 25 MG TAB PO SCH ×2 (08:24→19:12)
[2017-12-16] MEDS: HEPARIN SOD 5000 UNIT/0.5 ML CARP SQ SCH ×2 (08:27→20:47)
--- NOTE | 2017-12-16 09:21 | DIAGNOSTIC IMAGING REPORT ---
CHEST 2 VIEWS ROUTINE CLINICAL HISTORY: Fever and sepsis. COMPARISON STUDY: 12/15/2017 FINDINGS: The examination is moderately rotated. There is left lower lobe atelectasis/consolidation. There is underlying emphysema. Small pleural effusions are suspected. There is chronic right midlung zone nodularity.[ IMPRESSION: Persistent left lower lobe atelectasis/consolidation. Small pleural effusions. Electronically signed by: Sohail Rand M.D. 12/16/2017 9:20 AM Dictated Date/Time: 12/16/2017 9:18 AM
[2017-12-16] MEDS ORDERED: NURSING VERBAL MED ORDER ONE (09:45)
--- NOTE | 2017-12-16 12:11 | Hospitalist Progress Note ---
Hospitalist Progress Note Date of Service December 16, 2017. Subjective Pt evaluation today including: conversation w/ patient, physical exam, chart review, lab review, review of studies, review of inpatient medication list Patient seen and evaluated. Mentation improved and now on RA with appropriate oxygenation. Verbalizes no complaints and follows commands. Easily distracted. Will start a diet with standard aspiration precautions. Appears that mentation was largely related to CO2 retention which is going to be likely a continuing problem given his restrictive lung disease and intolerance to bipap when mentation is appropriate. Additional Comments: ROS limited due to easy distractibility. Says no to pain and SOB but mostly watching the TV. Medications Current Inpatient Medications Medications (Trade) Dose Ordered Sig/Kay Route Start Time Stop Time Status Last Admin Dose Admin Heparin Sodium (Porcine) (Heparin Sq 5000 Unit/0.5ml) 5,000 unit Q12 SQ 12/15/17 21:00 01/14/18 20:59 12/16/17 08:27 5,000 UNIT Acetaminophen (Tylenol Tab) 650 mg Q4H PRN PO 12/15/17 14:15 01/14/18 14:14 Al Hydrox/Mg Hydrox/Simethicone (Maalox Max Susp) 15 ml Q4H PRN PO 12/15/17 14:15 01/14/18 14:14 Magnesium Hydroxide (Milk Of Magnesia Susp) 30 ml Q12H PRN PO 12/15/17 14:15 01/14/18 14:14 Ondansetron HCl (Zofran Inj) 4 mg Q6H PRN IV 12/15/17 14:15 01/14/18 14:14 Polyethylene (Miralax Powder Packet) 17 gm DAILY PRN PO 12/15/17 14:15 01/14/18 14:14 Baclofen (Lioresal Tab) 10 mg BID PRN PO 12/15/17 14:15 01/14/18 14:14 12/16/17 03:16 10 MG Ferrous Sulfate (Feosol Tab) 325 mg DAILY PO 12/16/17 09:00 01/15/18 08:59 12/16/17 08:22 325 MG Gabapentin (Neurontin Cap) 600 mg BID PO 12/15/17 21:00 01/14/18 20:59 12/16/17 08:21 600 MG Metoprolol Tartrate (Lopressor Tab) 12.5 mg BID PO 12/15/17 21:00 01/14/18 20:59 12/16/17 08:24 12.5 MG Multivitamins (Multivitamin Tab) 1 tab QAM PO 12/16/17 09:00 01/15/18 08:59 12/16/17 08:24 1 TAB Senna/Docusate Sodium (Senokot S Tab) 1 tab BID PO 12/15/17 21:00 01/14/18 20:59 12/16/17 08:22 1 TAB Tamsulosin HCl (Flomax Cap) 0.4 mg HS PO 12/15/17 21:00 01/14/18 20:59 Cholecalciferol (Vitamin D Tab) 2,000 inter.unit DAILY PO 12/16/17 09:00 01/15/18 08:59 12/16/17 08:22 2,000 INTER.UNIT Miscellaneous Information (Order Awaiting Action) 1 ea QS N/A 12/15/17 16:00 01/14/18 15:59 Ranitidine HCl (zANTac TAB) 150 mg BID PO 12/15/17 21:00 01/14/18 20:59 12/16/17 08:23 150 MG Metoprolol Tartrate (Lopressor Iv) 2.5 mg Q6 PRN IV 12/15/17 14:15 01/14/18 14:14 Albuterol Sulfate (Ventolin 0.083% 2.5MG/3ML Neb) 2.5 mg Q6R INH 12/15/17 15:00 01/14/18 14:59 12/16/17 06:46 2.5 MG Glucose (Glucose 40% Gel) 15-30 GRAMS 15 GRAMS... UD PRN PO 12/15/17 14:30 01/14/18 14:29 Glucose (Glucose Chew Tab) 4-8 Tablets 4 Tabl... UD PRN PO 12/15/17 14:30 01/14/18 14:29 Dextrose (Dextrose 50% 50ML Syringe) 25-50ML 25ML FOR ... UD PRN IV 12/15/17 14:30 01/14/18 14:29 Glucagon (Glucagon Inj) 1 mg UD PRN SQ 12/15/17 14:30 01/14/18 14:29 Carbohydrates (Carbohydrates For Hypoglycemia) 15-30 GRAMS 15 grams if BSG 54-69... UD PRN PO 12/15/17 14:30 01/14/18 14:29 Insulin Aspart (novoLOG ASPART) SLIDING SCALE If C... ACHS SC 12/16/17 11:00 01/15/18 10:59 Objective Vital Signs Date Time Temp Pulse Resp B/P (MAP) Pulse Ox O2 Delivery O2 Flow Rate FiO2 12/16/17 08:00 Room Air 12/16/17 06:49 99 16 98 Nasal Cannula 1.0 12/16/17 06:05 92 16 109/51 (70) 95 Nasal Cannula 1.0 12/16/17 05:08 107 21 89/53 (65) 93 Nasal Cannula 1.0 12/16/17 04:59 102 12 94 Nasal Cannula 1.0 12/16/17 04:29 37.0 107 15 90/51 (64) 86 Room Air 12/16/17 04:00 BiPAP 30 12/16/17 02:26 102 16 100 Mask 4.0 12/16/17 00:28 37.1 112 21 109/57 (74) 98 BiPAP 12/16/17 00:01 BiPAP 30 12/15/17 22:16 106 98 30 12/15/17 20:29 36.4 108 17 102/56 (71) 99 BiPAP 12/15/17 20:04 BiPAP 30 12/15/17 19:00 111 99 30 12/15/17 18:59 111 20 99 BiPAP/CPAP 30 12/15/17 16:57 95 102/53 (69) 100 BiPAP 12/15/17 15:46 101 17 99 BiPAP/CPAP 40 12/15/17 15:45 101 99 40 12/15/17 15:30 36.4 108 18 98 12/15/17 15:26 110 14 103/67 (82) 97 12/15/17 15:11 99 20 122/61 98 12/15/17 15:01 99 0 114/61 (76) 98 12/15/17 15:00 99 0 97 12/15/17 13:30 107 18 110/64 97 BiPAP 12/15/17 13:14 99 12/15/17 12:45 102 97 40 12/15/17 12:43 111 19 94 BiPAP/CPAP 40 12/15/17 11:50 Nasal Cannula Physical Exam General Appearance: no apparent distress, + cachetic Eyes: sclerae normal ENT: hearing grossly normal Neck: supple, no JVD, trachea midline Respiratory/Chest: lungs clear, no respiratory distress, no accessory muscle use Cardiovascular: regular rate, rhythm Abdomen: normal bowel sounds, non tender, soft Extremities: no pedal edema Neurologic/Psychiatric: alert, + pertinent finding (oriented to self and place) Skin: normal color, warm/dry Laboratory Results Last 24 Hours Test 12/15/17 13:32 12/15/17 18:01 12/15/17 18:23 12/15/17 19:27 Arterial Blood pH 7.26 7.28 Arterial Blood Partial Pressure CO2 73 mmHg 66 mmHg Arterial Blood Partial Pressure O2 82 mm/Hg 95 mm/Hg Arterial Blood HCO3 32 mmol/L 30 mmol/L Arterial Blood Oxygen Saturation 94.2 % 96.3 % Arterial Blood Base Excess 3.4 mEq/L 1.8 mEq/L Arterial Blood Gas Delivery RA FIO2 30% Scott Test POS POS Venous Blood pH 7.22 Venous Blood Partial Pressure CO2 84 mmHg Venous Blood Partial Pressure O2 41 mmHg Venous Blood HCO3 33 mmol/L Venous Blood Oxygen Saturation 69.6 % Venous Blood Base Excess 3.2 mEq/L Bedside Glucose 225 mg/dl Test 12/16/17 00:26 12/16/17 05:40 12/16/17 06:00 12/16/17 09:42 Bedside Glucose 182 mg/dl 184 mg/dl 157 mg/dl White Blood Count 6.73 K/uL Red Blood Count 3.57 M/uL Hemoglobin 11.3 g/dL Hematocrit 35.5 % Mean Corpuscular Volume 99.4 fL Mean Corpuscular Hemoglobin 31.7 pg Mean Corpuscular Hemoglobin Concent 31.8 g/dl RDW Standard Deviation 56.3 fL RDW Coefficient of Variation 15.5 % Platelet Count 141 K/uL Mean Platelet Volume 9.9 fL Sodium Level 141 mmol/L Potassium Level 4.8 mmol/L Chloride Level 105 mmol/L Carbon Dioxide Level 33 mmol/L Anion Gap 3.0 mmol/L Blood Urea Nitrogen 19 mg/dl Creatinine 0.82 mg/dl Est Creatinine Clear Calc Drug Dose 40.2 ml/min Estimated GFR () 93.5 Estimated GFR (Non- 80.6 BUN/Creatinine Ratio 22.7 Random Glucose 167 mg/dl Calcium Level 8.6 mg/dl Test 12/16/17 11:26 Bedside Glucose 146 mg/dl Assessment and Plan Mr. Rivera is an 87 y/o male with PMHx of Severe Torticollis and Kyphoscoliosis, Restrictive Lung Disease, BPH with LUTS S/P TURP, HTN, HLD, T2DM with Neuropathy, Chronic LLL Atelectasis, Severe Protein Calorie Malnutrition, GERD, AAA, and Intellectual Disability who presents to the ED due to lethargy. Acute Respiratory Failure with Compensating Respiratory Acidosis with Hypercapnia 2/2 Restrictive Lung Disease/Kyphoscoliosis: RESOLVED - Patient tolerated BiPAP majority of the night but as expected as his mentation improved he did not want this - has been weaned to RA at this time - goal is sats 88-92% to avoid over-oxygenation - No infectious etiology suggested at this point and will monitor off Abx; Stopped steroids - Ventolin nebs Q6H - Avoid Benzos and narcotics given respiratory status Metabolic Encephalopathy 2/2 Above: RESOLVED - Appears to be at baseline mentation will need to confirm with caregiver/ Lafayette Mccarthy HTN and HLD: - Stop Simvastatin and could consider D/C altogether given age the long-term benefit is not necessary and may be contributing to some musculoskeletal weakness - Lopressor 12.5 mg BID T2DM and Neuropathy: - Hold Glimeperide and Implement SSI - Gabapentin 600 mg BID - appears he may have been on 800 mg TID and this was addressed as outpatient - may need to further wean from 600 mg to promote improvement in mentation BPH with LUTS: - Continue to monitor Severe Protein Calorie Malnutrition: BMI 16 - Regular diet and will add Boost DVT Prophylaxis: Heparin Code Status: FULL RESUSCITATION - Previous admission palliative was consulted for goals of care as patient does not have a POA and is chronically ill and cachectic. Brother was original plan with papers mailed to him however he is 99 years old. Per caregiver they are in the process of getting the Nephew Brian as POA who states "do whatever to give him a fighting chance" - This should be readdressed and formalized wishes obtained as patient appears chronically ill and progressively declining. At this time if respiratory status does not respond to non-invasive measures he may require intubation. Did discuss with Dr. Leal (surgical oncologist) Disposition: PT/OT - Caregiver states he may need rehab again pending course; social service consultation placed - hopeful discharge in next day or two. Unfortunately due to continued risk for CO2 retention he is a very high probability of readmission given intolerance of BiPAP at night. Until goals of care could be determined, it would be expected he would be readmitted for correction of his CO2/Hypoxia. Effie Mccarthy is working on getting appropriate POA established. Discharge planning: uncertain
[2017-12-16] MEDS: TAMSULOSIN HCL 0.4 MG CAP PO SCH (19:12)
[2017-12-17] VITALS (9 sets, daily range): BP systolic 108–126; BP diastolic 58–79; PULSE 74–94; TEMP 36.5–37; O2SAT 92–100
[2017-12-17] MEDS: ALBUTEROL 0.083% NEBU SOLN 3 ML VIAL INH SCH ×4 (01:55→19:32)
[2017-12-17 06:09] LABS: HEMATOCRIT 34.1 % (42-52); HEMOGLOBIN 10.9 g/dL (14.0-18.0); MEAN CELL VOLUME 97.7 fL (80-100); MEAN CORPUSCULAR HEMOGLOBIN 31.2 pg (25-34); MEAN PLATELET VOLUME 9.7 fL (7.4-10.4); PLATELET COUNT 125 K/uL (130-400); RED CELL DISTRIBUTION WIDTH CV 15.6 % (11.5-14.5); RED CELL DISTRIBUTION WIDTH SD 56.2 fL (36.4-46.3); WHITE BLOOD COUNT 6.12 K/uL (4.8-10.8)
[2017-12-17 06:51] LABS: CALCIUM 8.3 mg/dl (8.5-10.1); CREATININE 0.65 mg/dl (0.60-1.40); POTASSIUM 3.8 mmol/L (3.5-5.1)
[2017-12-17] MEDS: INSULIN ASPART 100 UNITS/ML 3 ML PEN SC SCH ×4 (07:43→20:51)
[2017-12-17] MEDS: MULTIVITAMIN TAB PO SCH (07:45)
[2017-12-17] MEDS: GABAPENTIN 300 MG CAP PO SCH ×2 (07:45→20:15)
[2017-12-17] MEDS: FERROUS SULFATE 325 MG TAB PO SCH (07:46)
[2017-12-17] MEDS: DOCUSATE SODIUM/SENNA 50/8.6MG TAB PO SCH ×2 (07:46→20:15)
[2017-12-17] MEDS: RANITIDINE HCL 150 MG TAB PO SCH ×2 (07:46→20:15)
[2017-12-17] MEDS: METOPROLOL TARTRATE 25 MG TAB PO SCH ×2 (07:47→20:15)
[2017-12-17] MEDS: CHOLECALCIFEROL 1000 INTER.UNIT TAB PO SCH (07:47)
[2017-12-17] MEDS: HEPARIN SOD 5000 UNIT/0.5 ML CARP SQ SCH ×2 (07:48→20:17)
--- NOTE | 2017-12-17 14:32 | Progress Note ---
Subjective Date of Service: December 17, 2017. Subjective Pt evaluation today including: conversation w/ patient, conversation w/ family , physical exam, chart review, lab review, review of studies, review of inpatient medication list In bed, eating okay, no difficulty breathing, conversational, follow-up commands , no acute distress, report was up and walk with therapist with a walker Problem List Medical Problems: (1) Acute respiratory failure with hypoxia Status: Acute (2) Acute respiratory failure with hypoxia and hypercapnia Status: Acute (3) Clostridium difficile infection Status: Acute (4) Fever Status: Acute (5) Gastroesophageal reflux disease Status: Chronic (6) Humeral fracture Status: Acute (7) Hypercapnemia Status: Acute (8) Hypokalemia Status: Acute (9) Hypotension Status: Acute (10) Hypoxia Status: Acute (11) Inguinal hernia Status: Chronic (12) Left lower lobe pneumonia Status: Acute (13) Pneumonia Status: Acute (14) Pneumonia involving left lung Status: Acute (15) Proteinuria Status: Chronic (16) Small bowel obstruction Status: Acute (17) UTI (urinary tract infection) Status: Acute (18) UTI (urinary tract infection) Status: Acute (19) UTI (urinary tract infection) Status: Acute (20) Vomiting Status: Acute (21) Vomiting and diarrhea Status: Acute (22) Weakness Status: Acute (23) Weakness Status: Acute Review of Systems Constitutional: + weakness, + fatigue, No fever, No chills, No sweats, No weight loss, No problem reported Eyes: No worsening of vision, No eye pain, No redness, No discharge, No diplopia ENT: No hearing loss, No unusual epistaxis, No nasal symptoms, No sore throat, No tinnitus, No dental problems, No trouble swallowing Respiratory: + cough, No sputum, No wheezing, No shortness of breath, No dyspnea on exertion, No dyspnea at rest, No hemoptysis Cardiac: No chest pain, No orthopnea, No PND, No edema, No claudication, No palpitations Abdomen: No pain, No nausea, No vomiting, No diarrhea, No constipation Musculoskeletal: No joint pain, No muscle pain, No swelling, No calf pain Male : No dysuria, No urinary frequency, No incontinence, No nocturia more than once/night, No slowing stream, No hematuria Neurologic: No memory loss, No paralysis, No weakness, No numbness/tingling, No vertigo, No balance problems Psychiatric: No depression symptoms, No anhedonism, No anxiety, No insomnia, No substance abuse Heme: No abnormal bleeding/bruising, No clotting problems, No swollen lymph nodes, No night sweats Endo: No fatigue, No excessive thirst, No excessive urination Skin: No rash, No itch, No new/changing skin lesions, No color change, No bleeding Objective Vital Signs Date Time Temp Pulse Resp B/P (MAP) Pulse Ox O2 Delivery O2 Flow Rate FiO2 12/17/17 12:00 Room Air 12/17/17 11:20 36.5 74 20 122/72 (89) 99 Room Air 12/17/17 10:10 86 97 12/17/17 08:00 Room Air 12/17/17 07:15 37.0 94 20 116/69 (85) 99 Room Air 12/17/17 04:00 Room Air 12/17/17 03:26 36.6 88 17 108/58 (75) 99 Room Air 12/17/17 01:14 36.6 93 17 109/61 (77) 100 Room Air 12/17/17 00:01 Room Air 12/16/17 20:50 100 22 98/52 (67) 98 Room Air 12/16/17 20:00 Room Air 12/16/17 19:11 36.7 100 23 87/50 (62) 100 Room Air 12/16/17 18:54 98 16 98 Room Air 12/16/17 16:00 Room Air 12/16/17 15:49 36.6 99 16 98/59 (72) 98 Room Air Physical Exam General Appearance: WD/WN, no apparent distress, + cachetic, + thin Eyes: normal inspection, PERRL, EOMI, sclerae normal ENT: normal ENT inspection, hearing grossly normal, pharynx normal Neck: supple, no adenopathy, thyroid normal, no JVD, no carotid bruits, trachea midline Respiratory/Chest: chest non-tender, lungs clear, no respiratory distress, no accessory muscle use, + decreased breath sounds Cardiovascular: regular rate, rhythm, no edema, no gallop, no JVD, no murmur Abdomen: normal bowel sounds, non tender, soft, no organomegaly, no pulsatile mass Extremities: normal range of motion, non-tender, normal inspection, no pedal edema, no calf tenderness, normal capillary refill, pelvis stable, + pertinent finding (Kyphosis) Neurologic/Psychiatric: community health consultant II-XII nml as tested, no motor/sensory deficits, alert, normal mood/affect, oriented x 3 Skin: normal color, warm/dry, no rash Lymphatic: no adenopathy Laboratory Results Last 24 Hours Test 12/16/17 16:13 12/16/17 20:42 12/17/17 05:53 12/17/17 07:21 Bedside Glucose 154 mg/dl 117 mg/dl 149 mg/dl White Blood Count 6.12 K/uL Red Blood Count 3.49 M/uL Hemoglobin 10.9 g/dL Hematocrit 34.1 % Mean Corpuscular Volume 97.7 fL Mean Corpuscular Hemoglobin 31.2 pg Mean Corpuscular Hemoglobin Concent 32.0 g/dl RDW Standard Deviation 56.2 fL RDW Coefficient of Variation 15.6 % Platelet Count 125 K/uL Mean Platelet Volume 9.7 fL Sodium Level 142 mmol/L Potassium Level 3.8 mmol/L Chloride Level 106 mmol/L Carbon Dioxide Level 35 mmol/L Anion Gap 1.0 mmol/L Blood Urea Nitrogen 18 mg/dl Creatinine 0.65 mg/dl Est Creatinine Clear Calc Drug Dose 50.5 ml/min Estimated GFR () 102.8 Estimated GFR (Non- 88.7 BUN/Creatinine Ratio 28.5 Random Glucose 157 mg/dl Calcium Level 8.3 mg/dl Test 12/17/17 11:24 Bedside Glucose 87 mg/dl Assessment and Plan 87 y/o male admitted on December 15, 2017 because of acute respirator failure and lethargy. PMHx: Severe Torticollis and Kyphoscoliosis, Restrictive Lung Disease, BPH with LUTS S /P TURP, HTN, HLD, T2DM with Neuropathy, Chronic LLL Atelectasis, Severe Protein Calorie Malnutrition, GERD, AAA, and Intellectual Disability Acute Respiratory Failure with Compensating Respiratory Acidosis with Hypercapnia 2/2 Restrictive Lung Disease/Kyphoscoliosis: RESOLVED Was on BiPAP majority of the night Approaching to baseline, do not need oxygen for now Ordered two steps and nocturnal pulse studies to evaluation of home oxygen need No signs of infectious - Ventolin nebs Q6H - Avoid Benzos and narcotics given respiratory status Metabolic Encephalopathy 2/2 Above: RESOLVED at baseline mentation will need to confirm with caregiver/[place] [facility] HTN and HLD: Stop Simvastatin given age the long-term benefit is not necessary and may be contributing to some musculoskeletal weakness, also checking fasting lipid panel non Continue Lopressor 12.5 mg BID T2DM and Neuropathy: - Hold Glimeperide and Implement SSI - Gabapentin 600 mg BID - appears he may have been on 800 mg TID and this was addressed as outpatient - may need to further wean from 600 mg to promote improvement in mentation BPH with LUTS: - Continue to monitor Severe Protein Calorie Malnutrition: BMI 16 - Regular diet and will add Boost DVT Prophylaxis: Heparin Code Status: FULL RESUSCITATION - Previous admission palliative was consulted for goals of care as patient does not have a POA and is chronically ill and cachectic. Brother was original plan with papers mailed to him however he is 99 years old. Per caregiver they are in the process of getting the Nephew Brian as POA who states "do whatever to give him a fighting chance" -Has requested consult of palliative care for colonic care and CODE STATUS Disposition: PT/OT Rehabilitation all going back to shelter, [facility] is working on getting appropriate POA established, possible tomorrow. Continued [facility] stay due to: home environment unsafe for pt Discharge planning: home with home health
[2017-12-17] MEDS: TAMSULOSIN HCL 0.4 MG CAP PO SCH (20:16)
[2017-12-18] MEDS: ALBUTEROL 0.083% NEBU SOLN 3 ML VIAL INH SCH ×3 (02:10→14:04)
[2017-12-18 03:58] VITALS: BP 104/50; PULSE 85; TEMP 36.6; O2SAT 94
[2017-12-18 06:00] VITALS: PULSE 72; O2SAT 96
[2017-12-18 06:39] LABS: HEMATOCRIT 35.4 % (42-52); HEMOGLOBIN 11.2 g/dL (14.0-18.0); MEAN CELL VOLUME 96.7 fL (80-100); MEAN CORPUSCULAR HEMOGLOBIN 30.6 pg (25-34); MEAN CORPUSCULAR HGB CONC 31.6 g/dl (32-36); MEAN PLATELET VOLUME 9.7 fL (7.4-10.4); PLATELET COUNT 137 K/uL (130-400); RED CELL DISTRIBUTION WIDTH CV 15.2 % (11.5-14.5); RED CELL DISTRIBUTION WIDTH SD 53.8 fL (36.4-46.3); WHITE BLOOD COUNT 4.75 K/uL (4.8-10.8)
[2017-12-18 06:48] VITALS: BP 113/71; PULSE 86; TEMP 36.6; O2SAT 94
[2017-12-18] MEDS: DOCUSATE SODIUM/SENNA 50/8.6MG TAB PO SCH ×2 (08:42→20:51)
[2017-12-18] MEDS: MULTIVITAMIN TAB PO SCH (08:42)
[2017-12-18] MEDS: METOPROLOL TARTRATE 25 MG TAB PO SCH ×2 (08:42→20:51)
[2017-12-18] MEDS: GABAPENTIN 300 MG CAP PO SCH ×2 (08:42→20:51)
[2017-12-18] MEDS: FERROUS SULFATE 325 MG TAB PO SCH (08:42)
[2017-12-18] MEDS: RANITIDINE HCL 150 MG TAB PO SCH ×2 (08:42→20:51)
[2017-12-18] MEDS: CHOLECALCIFEROL 1000 INTER.UNIT TAB PO SCH (08:42)
[2017-12-18] MEDS: INSULIN ASPART 100 UNITS/ML 3 ML PEN SC SCH ×4 (08:45→21:07)
[2017-12-18] MEDS: HEPARIN SOD 5000 UNIT/0.5 ML CARP SQ SCH ×2 (08:48→21:08)
[2017-12-18 11:42] VITALS: BP 122/63; PULSE 83; TEMP 36.6; O2SAT 97
--- NOTE | 2017-12-18 11:56 | Palliative Care Consultation ---
Consultation Date of Consultation: December 18, 2017. Requesting Physician: Dr. Grijalva Attending Physician: Dr. Grijalva Reason for Consultation: Goals of Care History of Present Illness This patient is a pleasant 87 year old is a resident at [facility] who presented to the ED with lethargy related to hypercarbic respiratory failure. Additional PMH includes: Torticollis, kyphoscoliosis, LLL atelectasis, DM2, BPH with LUTS s/p TURP. Additionally, the patient does have dysphagia related to body deformities. The patient has had multiple readmissions for hypercapnia for which he does improve with BiPAP, but to date, the patient is intermittently resistant to wearing a BiPAP and takes it off. His most recent ABG was pH7.28/pCO2 66/HCO3 30 on 0.30 FiO2 BiPAP. The patient does have a brother, that is 99 years old, who does not understand the complexity of the situation. His nephew, Eduardo, is in the process of obtaining legal POA, but the patient is not a goddard of the state, so he is the decision maker on behalf of his Dad, the patients brother. GOALS OF CARE was discussed with representatives from [facility] who expressed wanting him to return to [facility]. We discussed his medical condition at length, along with the liklihood of this worsening and increasing in frequency. Hospice can visit [facility] and provide support and COMFORT is the main goal for this patient. The patient was involved in this conversation and stated "he wants to go home and does not want to be at the hospital". He also stated he "wants to stay at his home". This conversation was discussed with his nephew, Eduardo, who is in full support of him returning to [facility] with hospice support. CODE STATUS was discussed with the patient's nephew, Eduardo, and he will be changed to a DNR/DNI. A POLST form was completed with the patients nephew, Eduardo, over the phone - The goal is to keep him comfortable and not transfer him back to the hospital, knowing that if he does not tolerate the BiPAP mask with HOSPICE, comfort measures are to be instituted. Case management in the process of working with [facility] to select a Hospice agency - and the patients nephew has deferred to [facility] to select one. Thank you kindly for including us in this patients care. We will follow accordingly. Past Medical/Surgical History Medical History: Torticollis Kyphoscoliosis Restrictive Lung Disease LLL atelectasis BPH with LUTS s/p TURP Diabetes Mellitus Social History Smoking Status: Unknown if Ever Smoked History of Alcohol Use: No Drug Use: none Marital Status: single Housing Status: assisted living Occupation Status: retired, disabled Review of Systems General: Patient denies pain HEENT: Pt denies NYE, dizziness CV: pt denies chest pain Resp: Patient denies SOB GI: Pt denies N/V/D Allergies Coded Allergies: No Known Allergies (Verified , 12/15/17) Medications Current Inpatient Medications Medications (Trade) Dose Ordered Sig/Kay Route Start Time Stop Time Status Last Admin Dose Admin Heparin Sodium (Porcine) (Heparin Sq 5000 Unit/0.5ml) 5,000 unit Q12 SQ 12/15/17 21:00 01/14/18 20:59 12/18/17 08:48 5,000 UNIT Acetaminophen (Tylenol Tab) 650 mg Q4H PRN PO 12/15/17 14:15 01/14/18 14:14 Al Hydrox/Mg Hydrox/Simethicone (Maalox Max Susp) 15 ml Q4H PRN PO 12/15/17 14:15 01/14/18 14:14 Magnesium Hydroxide (Milk Of Magnesia Susp) 30 ml Q12H PRN PO 12/15/17 14:15 01/14/18 14:14 Ondansetron HCl (Zofran Inj) 4 mg Q6H PRN IV 12/15/17 14:15 01/14/18 14:14 Polyethylene (Miralax Powder Packet) 17 gm DAILY PRN PO 12/15/17 14:15 01/14/18 14:14 Baclofen (Lioresal Tab) 10 mg BID PRN PO 12/15/17 14:15 01/14/18 14:14 12/16/17 03:16 10 MG Ferrous Sulfate (Feosol Tab) 325 mg DAILY PO 12/16/17 09:00 01/15/18 08:59 12/18/17 08:42 325 MG Gabapentin (Neurontin Cap) 600 mg BID PO 12/15/17 21:00 01/14/18 20:59 12/18/17 08:42 600 MG Metoprolol Tartrate (Lopressor Tab) 12.5 mg BID PO 12/15/17 21:00 01/14/18 20:59 12/18/17 08:42 12.5 MG Multivitamins (Multivitamin Tab) 1 tab QAM PO 12/16/17 09:00 01/15/18 08:59 12/18/17 08:42 1 TAB Senna/Docusate Sodium (Senokot S Tab) 1 tab BID PO 12/15/17 21:00 01/14/18 20:59 12/18/17 08:42 1 TAB Tamsulosin HCl (Flomax Cap) 0.4 mg HS PO 12/15/17 21:00 01/14/18 20:59 12/17/17 20:16 0.4 MG Cholecalciferol (Vitamin D Tab) 2,000 inter.unit DAILY PO 12/16/17 09:00 01/15/18 08:59 12/18/17 08:42 2,000 INTER.UNIT Miscellaneous Information (Order Awaiting Action) 1 ea QS N/A 12/15/17 16:00 01/14/18 15:59 Ranitidine HCl (zANTac TAB) 150 mg BID PO 12/15/17 21:00 01/14/18 20:59 12/18/17 08:42 150 MG Metoprolol Tartrate (Lopressor Iv) 2.5 mg Q6 PRN IV 12/15/17 14:15 01/14/18 14:14 Albuterol Sulfate (Ventolin 0.083% 2.5MG/3ML Neb) 2.5 mg Q6R INH 12/15/17 15:00 01/14/18 14:59 12/16/17 18:52 2.5 MG Glucose (Glucose 40% Gel) 15-30 GRAMS 15 GRAMS... UD PRN PO 12/15/17 14:30 01/14/18 14:29 Glucose (Glucose Chew Tab) 4-8 Tablets 4 Tabl... UD PRN PO 12/15/17 14:30 01/14/18 14:29 Dextrose (Dextrose 50% 50ML Syringe) 25-50ML 25ML FOR ... UD PRN IV 12/15/17 14:30 01/14/18 14:29 Glucagon (Glucagon Inj) 1 mg UD PRN SQ 5/19/18 14:30 01/14/18 14:29 Carbohydrates (Carbohydrates For Hypoglycemia) 15-30 GRAMS 15 grams if BSG 54-69... UD PRN PO 12/15/17 14:30 01/14/18 14:29 Insulin Aspart (novoLOG ASPART) SLIDING SCALE If C... ACHS SC 12/16/17 11:00 01/15/18 10:59 12/17/17 20:51 1 UNITS Physical Exam Date Time Temp Pulse Resp B/P (MAP) Pulse Ox O2 Delivery O2 Flow Rate FiO2 12/18/17 08:00 Room Air 12/18/17 06:48 36.6 86 16 113/71 (85) 94 Room Air 12/18/17 06:00 72 18 96 Room Air 12/18/17 04:00 Room Air 12/18/17 03:58 36.6 85 16 104/50 (68) 94 Room Air 12/18/17 00:01 Room Air 12/17/17 23:40 36.6 84 16 115/72 (86) 96 Room Air 12/17/17 20:00 Room Air 12/17/17 19:51 36.6 92 18 122/66 (84) 92 Room Air 12/17/17 16:01 97 Room Air 12/17/17 15:22 36.5 88 21 110/72 (85) 97 Room Air 12/17/17 12:00 Room Air General Appearance: no apparent distress, + cachetic Neck: no JVD Respiratory: lungs clear, no respiratory distress, no accessory muscle use, + decreased breath sounds Cardiovascular: regular rate, rhythm, no edema, no gallop Abdomen: normal bowel sounds, non tender, soft, + pertinent finding (concave) Musculoskeletal: abnormal strength, poor tone Neurologic/Psychiatric: + pertinent finding (pt oriented to self, location and basic components of his situation) Skin: warm/dry Laboratory Results Last 24 Hours Test 12/17/17 16:41 12/17/17 20:45 12/18/17 06:22 12/18/17 07:11 Bedside Glucose 95 mg/dl 201 mg/dl 109 mg/dl White Blood Count 4.75 K/uL Red Blood Count 3.66 M/uL Hemoglobin 11.2 g/dL Hematocrit 35.4 % Mean Corpuscular Volume 96.7 fL Mean Corpuscular Hemoglobin 30.6 pg Mean Corpuscular Hemoglobin Concent 31.6 g/dl RDW Standard Deviation 53.8 fL RDW Coefficient of Variation 15.2 % Platelet Count 137 K/uL Mean Platelet Volume 9.7 fL Triglycerides Level 110 mg/dl Cholesterol Level 173 mg/dl HDL Cholesterol 65 mg/dl LDL Cholesterol, Calculated 86 mg/dl VLDL Cholesterol, Calculated 22 mg/dl Cholesterol/HDL Ratio 2.7 Assessment & Plan Palliative Performance Scale: 20 % Palliative Care Encounter Goals of Care Intellect disability Hypercapnic Respiratory Failure Torticollis Kyphoscoliosis Restrictive Lung Disease LLL atelectasis Palliative Care Recommendations: -This is a patient with chronic respiratory failure and musculoskeletal deformities that is showing overall decline. The patient has intellect disability and lacks understanding of the complexity of his illness. The patient 's nephew is in the process of obtaining legal POA, but is his decision maker as the patients son, is 99 years old and unable to process the complexity of his condition as well. -CODE STATUS was discussed with the patients nephew and we will change him to a DNR/DNI. -A POLST form was completed with the patients nephew, Eduardo, over the phone - The goal is to keep him comfortable and not transfer him back to the hospital , knowing that if he does not tolerate the BiPAP mask with HOSPICE, comfort measures are to be instituted. -Case management in the process of working with [facility] to select a Hospice agency - and the patients nephew has deferred to [facility] to select one. Counseling and Coordination Total time spent 70 minutes with > 50% of that time spent reviewing the chart, assessing the patient, discussing GOALS OF CARE with the representatives from [facility] and completing a POLST form with the patients nephew.
[2017-12-18] MEDS ORDERED: ALBUTEROL 0.083% NEBU SOLN 3 ML VIAL INH SCH (15:00)
[2017-12-18 15:02] VITALS: BP 123/75; PULSE 89; TEMP 36.5; O2SAT 95
--- NOTE | 2017-12-18 15:23 | Progress Note ---
Subjective Date of Service: December 18, 2017. Subjective Pt evaluation today including: conversation w/ patient, conversation w/ family , physical exam, chart review, lab review, review of studies Generalized weakness, however general conditions is the same as yesterday, decreased appetite, no cough no fever and chills, no other complaint Problem List Medical Problems: (1) Acute respiratory failure with hypoxia Status: Acute (2) Acute respiratory failure with hypoxia and hypercapnia Status: Acute (3) Clostridium difficile infection Status: Acute (4) Fever Status: Acute (5) Gastroesophageal reflux disease Status: Chronic (6) Humeral fracture Status: Acute (7) Hypercapnemia Status: Acute (8) Hypokalemia Status: Acute (9) Hypotension Status: Acute (10) Hypoxia Status: Acute (11) Inguinal hernia Status: Chronic (12) Left lower lobe pneumonia Status: Acute (13) Pneumonia Status: Acute (14) Pneumonia involving left lung Status: Acute (15) Proteinuria Status: Chronic (16) Small bowel obstruction Status: Acute (17) UTI (urinary tract infection) Status: Acute (18) UTI (urinary tract infection) Status: Acute (19) UTI (urinary tract infection) Status: Acute (20) Vomiting Status: Acute (21) Vomiting and diarrhea Status: Acute (22) Weakness Status: Acute (23) Weakness Status: Acute Review of Systems Constitutional: + weakness, + fatigue, + problem reported, No fever, No chills Eyes: No worsening of vision, No eye pain, No redness, No discharge, No diplopia ENT: No hearing loss, No unusual epistaxis, No nasal symptoms, No sore throat, No tinnitus, No dental problems, No trouble swallowing Respiratory: No cough, No sputum, No wheezing, No shortness of breath, No dyspnea on exertion, No dyspnea at rest, No hemoptysis Cardiac: No chest pain, No orthopnea, No PND, No edema, No claudication, No palpitations Abdomen: No pain, No nausea, No vomiting, No diarrhea, No constipation Musculoskeletal: No joint pain, No muscle pain, No swelling, No calf pain Male : No dysuria, No urinary frequency, No incontinence, No nocturia more than once/night, No slowing stream, No hematuria Neurologic: No memory loss, No paralysis, No weakness, No numbness/tingling, No vertigo, No balance problems Psychiatric: No depression symptoms, No anhedonism, No anxiety, No insomnia, No substance abuse Heme: No abnormal bleeding/bruising, No clotting problems, No swollen lymph nodes, No night sweats Endo: No fatigue, No excessive thirst, No excessive urination Skin: No rash, No itch, No new/changing skin lesions, No color change, No bleeding Objective Vital Signs Date Time Temp Pulse Resp B/P (MAP) Pulse Ox O2 Delivery O2 Flow Rate FiO2 12/18/17 15:02 36.5 89 18 123/75 (91) 95 Room Air 12/18/17 12:00 Room Air 12/18/17 11:42 36.6 83 20 122/63 (82) 97 Room Air 12/18/17 08:00 Room Air 12/18/17 06:48 36.6 86 16 113/71 (85) 94 Room Air 12/18/17 06:00 72 18 96 Room Air 12/18/17 04:00 Room Air 12/18/17 03:58 36.6 85 16 104/50 (68) 94 Room Air 12/18/17 00:01 Room Air 12/17/17 23:40 36.6 84 16 115/72 (86) 96 Room Air 12/17/17 20:00 Room Air 12/17/17 19:51 36.6 92 18 122/66 (84) 92 Room Air 12/17/17 16:01 97 Room Air 12/17/17 15:22 36.5 88 21 110/72 (85) 97 Room Air Physical Exam General Appearance: WD/WN, no apparent distress, + cachetic, + thin, + pertinent finding (Frail chronically ill looking,) Eyes: normal inspection, PERRL, EOMI, sclerae normal, + pertinent finding ( Mild pale) ENT: normal ENT inspection, hearing grossly normal, pharynx normal Neck: supple, no adenopathy, thyroid normal, no JVD, no carotid bruits, trachea midline Respiratory/Chest: chest non-tender, normal breath sounds, no respiratory distress, no accessory muscle use, + decreased breath sounds, + pertinent finding (Kyphosis) Cardiovascular: regular rate, rhythm, no edema, no gallop, no JVD, no murmur Abdomen: normal bowel sounds, non tender, soft, no organomegaly, no pulsatile mass Extremities: normal range of motion, non-tender, normal inspection, no pedal edema, no calf tenderness, normal capillary refill, pelvis stable Neurologic/Psychiatric: varnish melter II-XII nml as tested, no motor/sensory deficits, alert, normal mood/affect, oriented x 3 Skin: normal color, warm/dry, no rash Lymphatic: no adenopathy Laboratory Results Last 24 Hours Test 12/17/17 16:41 12/17/17 20:45 12/18/17 06:22 12/18/17 07:11 Bedside Glucose 95 mg/dl 201 mg/dl 109 mg/dl White Blood Count 4.75 K/uL Red Blood Count 3.66 M/uL Hemoglobin 11.2 g/dL Hematocrit 35.4 % Mean Corpuscular Volume 96.7 fL Mean Corpuscular Hemoglobin 30.6 pg Mean Corpuscular Hemoglobin Concent 31.6 g/dl RDW Standard Deviation 53.8 fL RDW Coefficient of Variation 15.2 % Platelet Count 137 K/uL Mean Platelet Volume 9.7 fL Triglycerides Level 110 mg/dl Cholesterol Level 173 mg/dl HDL Cholesterol 65 mg/dl LDL Cholesterol, Calculated 86 mg/dl VLDL Cholesterol, Calculated 22 mg/dl Cholesterol/HDL Ratio 2.7 Assessment and Plan 87 y/o male admitted on December 15, 2017 because of acute respirator failure and lethargy. PMHx: Severe Torticollis and Kyphoscoliosis, Restrictive Lung Disease, BPH with LUTS S /P TURP, HTN, HLD, T2DM with Neuropathy, Chronic LLL Atelectasis, Severe Protein Calorie Malnutrition, GERD, AAA, and Intellectual Disability Acute Respiratory Failure with Compensating Respiratory Acidosis with Hypercapnia upon admission 2/2 Restrictive Lung Disease/Kyphoscoliosis: RESOLVED Was on BiPAP majority of the night Approaching to baseline, do not need oxygen for now, Nocturnal pulse ox was checked, which was not remarkable No signs of infectious - Ventolin nebs Q6H - Avoid Benzos and narcotics given respiratory status Metabolic Encephalopathy 2/2 Above: RESOLVED at baseline mentation will need to confirm with caregiver/[place] [facility] HTN and HLD: Stop Simvastatin given age the long-term benefit is not necessary and may be contributing to some musculoskeletal weakness, \\ Continue Lopressor 12.5 mg BID T2DM and Neuropathy: - Hold Glimeperide and Implement SSI - Gabapentin 600 mg BID - appears he may have been on 800 mg TID and this was addressed as outpatient BPH with LUTS: - Continue to monitor Severe Protein Calorie Malnutrition: BMI 16 - Regular diet and will add Boost DVT Prophylaxis: Heparin Code Status: Now is DNR - Previous admission palliative was consulted for goals of care as patient does not have a POA and is chronically ill and cachectic. Brother was original plan with papers mailed to him however he is 99 years old. Per caregiver they are in the process of getting the Nephew Brian as POA who states "do whatever to give him a fighting chance" -Family conference carried out with present of top case assembler and palliative care service, as I say patient currently is DNR/DNI. -A POLST form was completed with the patients nephew, Eduardo, over the phone - The goal is to keep him comfortable and not transfer him back to the hospital , knowing that if he does not tolerate the BiPAP mask with HOSPICE, comfort measures are to be instituted. -Case management in the process of working with [email or web address] to select a Hospice agency - and the patients nephew has deferred to [employer] to select one. Patient does not need oxygen for now upon discharge Discharge planning: home with Hospice
[2017-12-18] MEDS: TAMSULOSIN HCL 0.4 MG CAP PO SCH (20:51)
[2017-12-19 00:07] VITALS: BP 101/63; PULSE 81; TEMP 36.3; O2SAT 96
[2017-12-19] MEDS: INSULIN ASPART 100 UNITS/ML 3 ML PEN SC SCH ×2 (06:30→11:00)
[2017-12-19 07:22] VITALS: BP 111/67; PULSE 90; TEMP 36.5; O2SAT 96
[2017-12-19] MEDS: GABAPENTIN 300 MG CAP PO SCH (07:57)
[2017-12-19] MEDS: DOCUSATE SODIUM/SENNA 50/8.6MG TAB PO SCH (07:57)
[2017-12-19] MEDS: CHOLECALCIFEROL 1000 INTER.UNIT TAB PO SCH (07:58)
[2017-12-19] MEDS: MULTIVITAMIN TAB PO SCH (07:58)
[2017-12-19] MEDS: METOPROLOL TARTRATE 25 MG TAB PO SCH (07:58)
[2017-12-19] MEDS: RANITIDINE HCL 150 MG TAB PO SCH (07:58)
[2017-12-19] MEDS: HEPARIN SOD 5000 UNIT/0.5 ML CARP SQ SCH (08:01)
[2017-12-19] MEDS: FERROUS SULFATE 325 MG TAB PO SCH (09:25)
--- NOTE | 2017-12-19 12:04 | Discharge Instructions ---
Discharge Instructions Date of Service December 19, 2017. Admission Reason for Admission: Acute Respiratory Failure W/ Hypoxia/Hypercapnia Discharge Discharge Diagnosis / Problem: Acute Respiratory Failure with Compensating Respiratory Acidosis Discharge Goals Goal(s): Decrease discomfort Activity Recommendations Activity Limitations: resume your previous activity . Instructions / Follow-Up Instructions / Follow-Up you was admitted with acute respirator failure and lethargy. you have severe Torticollis and Kyphoscoliosis, Restrictive Lung Disease, because of [facility] goal of care changes to hospice care , I discontinue Glimeperide you are going back to [facility] ,and start Hospice - you need to follow up with your primary care physician in 1 week, - call your primary care physician, or go to local emergency room if has any fever/chill, chest pain, shortness of breathing, nausea/vomiting/abdominal pain , facial droop/slurry speech/local weakness, or if has any questions. - fall precaution - diet as instructed Current Hospital Diet Patient's current hospital diet: Diabetes Type 2 Diet Discharge Diet Recommended Diet: Regular Diet Pending Studies Studies pending at discharge: no Laboratory Results Lipid Panel Test 12/18/17 06:22 Range/Units Triglycerides Level 110 0-150 mg/dl Cholesterol Level 173 0-200 mg/dl HDL Cholesterol 65 mg/dl Cholesterol/HDL Ratio 2.7 LDL Cholesterol, Calculated 86 mg/dl Medical Emergencies . Who to Call and When: Medical Emergencies: If at any time you feel your situation is an emergency, please call 911 immediately. . Non-Emergent Contact Non-Emergency issues call your: Primary Care Provider . . "Provider Documentation" section prepared by Apollo Grijalva. .
[2017-12-19 12:23] VITALS: BP 111/67; PULSE 90; TEMP 36.5; O2SAT 96
--- NOTE | 2017-12-19 15:20 | Discharge Summary ---
Discharge Summary Date of Service December 19, 2017. Discharge Summary Admission Date: December 15, 2017 at 14:07 Discharge Date: December 19, 2017 Discharge Disposition: Home with services Principal Diagnosis: Acute Respiratory Failure with Compensating Respiratory Acidosis Problems/Secondary Diagnoses: (1) Gastroesophageal reflux disease Status: Chronic (2) Inguinal hernia Status: Chronic (3) Proteinuria Status: Chronic Immunizations: Have You Had Influenza Vaccine: Yes Influenza Vaccine Date: Jun 03, 2012 History of Tetanus Vaccine?: Unknown History of Pneumococcal: Yes History of Hepatitis B Vaccine: Unknown Procedures: No Medication Reconciliation Continued Medications: Baclofen (Baclofen) 10 Mg Tab 10 MG PO BID PRN for Headache may take with tramadol Cholecalciferol (Vitamin D3) 2,000 Unit Cap 2000 UNITS PO DAILY Dutasteride (Avodart) 0.5 Mg Cap 0.5 MG PO DAILY, CAP Esomeprazole Magnesium (Nexium) 40 Mg Cap 40 MG PO QAM Ferrous Sulfate (Ferrous Sulfate) 325 Mg Tab 325 MG PO 3XWK MON,WED,FRI Gabapentin (Gabapentin) 300 Mg Cap 600 MG PO BID Metoprolol Tartrate (Lopressor) 25 Mg Tab 12.5 MG PO BID for 30 Days Multivitamin (Multivitamin) Tab 1 TAB PO QAM, 0 Refills Polyethylene Glycol 3350 (Miralax) 1 Pow Pow 17 GM PO QAM PRN for Constipation for 30 Days Sennosides-Docusate Sodium (Sennalax-S) 1 Tab Tab 1 TAB PO BID Simvastatin (Simvastatin) 20 Mg Tab 20 MG PO QPM Tamsulosin Hcl (Flomax) 0.4 Mg Cap 0.4 MG PO HS, CAP Tramadol (Ultram) 50 Mg Tab 50 MG PO Q6H PRN for Pain, TAB Discontinued Medications: Glimepiride (Glimepiride) 1 Mg Tab 0.5 TAB PO QAM PRN for BSG >200 for 90 Days, #45 TAB 3 Refills take an additional half of a pill at 1500 if BSG is greater than 150 Discharge Exam Doing well, eating lunch, no complaint, Review of Systems: Constitutional: + weakness, + fatigue, No fever, No chills, No sweats, No weight loss, No problem reported Eyes: No worsening of vision, No eye pain, No redness, No discharge, No diplopia, No problem reported ENT: No hearing loss, No unusual epistaxis, No nasal symptoms, No sore throat, No tinnitus, No dental problems, No trouble swallowing, No problem reported Respiratory: + cough, No sputum, No wheezing, No shortness of breath, No dyspnea on exertion, No dyspnea at rest, No hemoptysis, No problem reported Cardiovascular: No chest pain, No orthopnea, No PND, No edema, No claudication, No palpitations, No problem reported Musculoskeletal: No joint pain, No muscle pain, No swelling, No calf pain, No problem reported Genitourinary - Male: No hematuria, No dysuria, No urinary frequency, No urinary urgency, No urinary hesitancy, No urinary retention, No urinary incontinence, No penile discharge, No lesions, No impotence, No problem reported Neurologic: No memory loss, No paralysis, No weakness, No numbness/tingling , No vertigo, No balance problems, No problem reported Psychiatric: No depression symptoms, No anhedonism, No anxiety, No insomnia , No substance abuse, No problem reported Endocrine: No fatigue, No excessive thirst, No excessive urination, No problem reported Hematologic / Lymphatic: No abnormal bleeding/bruising, No clotting problems , No swollen lymph nodes, No night sweats, No problem reported Integumentary: No rash, No itch, No new/changing skin lesions, No color change, No bleeding, No problem reported Physical Exam: General Appearance: WD/WN, + cachetic, + thin, + pertinent finding (Frail) Eyes: normal inspection, PERRL, EOMI ENT: normal ENT inspection, hearing grossly normal, TMs normal Neck: supple, no adenopathy, thyroid normal Respiratory/Chest: chest non-tender, normal breath sounds, no respiratory distress, no accessory muscle use, + decreased breath sounds, + pertinent finding (Kyphosis) Cardiovascular: regular rate, rhythm, no edema, no gallop, no JVD Abdomen / GI: normal bowel sounds, non tender, soft, no organomegaly, no pulsatile mass Extremities: normal inspection, no calf tenderness, normal capillary refill , no pedal edema, normal range of motion Neurologic/Psychiatric: group 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 PMHx: Severe Torticollis and Kyphoscoliosis, Restrictive Lung Disease, BPH with LUTS S /P TURP, HTN, HLD, T2DM with Neuropathy, Chronic LLL Atelectasis, Severe Protein Calorie Malnutrition, GERD, AAA, and Intellectual Disability Acute Respiratory Failure with Compensating Respiratory Acidosis with Hypercapnia upon admission 2/2 Restrictive Lung Disease/Kyphoscoliosis: RESOLVED Was on BiPAP majority of the night Approaching to baseline, do not need oxygen for a daytime Nocturnal pulse ox was checked, which was not remarkable No signs of infectious - Ventolin nebs Q6H - Avoid Benzos and narcotics given respiratory status Metabolic Encephalopathy 2/2 Above: RESOLVED at baseline mentation will need to confirm with caregiver/Effie Torres HTN and HLD: Stop Simvastatin given age the long-term benefit is not necessary and may be contributing to some musculoskeletal weakness, \\ Continue Lopressor 12.5 mg BID T2DM and Neuropathy: - Hold Glimeperide and no more insulin, and also change diet to regular diet because the goal of care is changed to hospice care we could continue comfort feeding and allow patient enjoying the taste of the food - Gabapentin 600 mg BID - appears he may have been on 800 mg TID and this was addressed as outpatient BPH with LUTS: - Continue to monitor -Today we will discontinue Wakefield catheter, can reinsert Wakefield catheter if have program of urinary retention can reinsert the Wakefield catheter if half problem of urinary retention Severe Protein Calorie Malnutrition: BMI 16 - Regular diet and add Boost DVT Prophylaxis: Heparin Code Status: Now is DNR - Previous admission palliative was consulted for goals of care as patient does not have a POA and is chronically ill and cachectic. Brother was original plan with papers mailed to him however he is 99 years old. Per caregiver they are in the process of getting the Nephew Brian as POA who states "do whatever to give him a fighting chance" -Family conference carried out with present of employment evaluator/case manager and palliative care service, as I say patient currently is DNR/DNI. -A POLST form was completed with the patients nephew, Eduardo, over the phone - The goal is to keep him comfortable and not transfer him back to the hospital , knowing that if he does not tolerate the BiPAP mask with HOSPICE, comfort measures are to be instituted. -Case management in the process of working with Effie torres to select a Hospice agency - and the patients nephew has deferred to [email or web address] to select one. Patient does not need oxygen for now upon discharge Instructions / Follow-Up you was admitted with acute respirator failure and lethargy. you have severe Torticollis and Kyphoscoliosis, Restrictive Lung Disease, because of [facility] goal of care changes to hospice care , I discontinue Glimeperide you are going back to [facility] ,and start Hospice - you need to follow up with your primary care physician in 1 week, - call your primary care physician, or go to local emergency room if has any fever/chill, chest pain, shortness of breathing, nausea/vomiting/abdominal pain , facial droop/slurry speech/local weakness, or if has any questions. - fall precaution - diet as instructed Total Time Spent: Greater than 30 minutes This includes examination of the patient, discharge planning, medication reconciliation, and communication with other providers. Discharge Instructions Please refer to the electronic Patient Visit Report (Discharge Instructions) for additional information. Additional Copies To Monika Zabala C.R.N.P.
== END 2017-12-19 15:12 | disposition hospice, home (50) | DRG 551 ==
LOC: EDBD 09:49 → C.EDB 09:50 → C.2E 14:07 → ENRESERV 14:21 → C.MS2W 12-18 14:44
PROVIDERS: ADMIT Internal Medicine; ATTEND Hospitalist
DX: M40.209 Unspecified kyphosis, site unspecified (principal); J96.02 Acute respiratory failure with hypercapnia; G93.41 Metabolic encephalopathy; E43 Unspecified severe protein-calorie malnutrition; J18.9 Pneumonia, unspecified organism; J98.11 Atelectasis; N39.0 Urinary tract infection, site not specified; Z68.1 Body mass index [BMI] 19.9 or less, adult; E87.2 Acidosis; Z51.5 Encounter for palliative care; I48.91 Unspecified atrial fibrillation; I10 Essential (primary) hypertension; E78.5 Hyperlipidemia, unspecified; K21.9 Gastro-esophageal reflux disease without esophagitis; M43.6 Torticollis; F79 Unspecified intellectual disabilities; N40.1 Benign prostatic hyperplasia with lower urinary tract symptoms; E11.42 Type 2 diabetes mellitus with diabetic polyneuropathy; Z66 Do not resuscitate; K40.90 Unilateral inguinal hernia, without obstruction or gangrene, not specified as recurrent; R80.9 Proteinuria, unspecified; Z87.11 Personal history of peptic ulcer disease; Z86.73 Personal history of transient ischemic attack (TIA), and cerebral infarction without residual deficits; Z87.01 Personal history of pneumonia (recurrent)

== ENCOUNTER → 2018-02-25 | Outpatient (CLI) | payer OTHER ==
[~2018-02-25] MED LIST changes: -FERR1TAB13 PO; +FERR325T5 PO; -GABA800T PO; -GLIM1TAB2 PO; +NRN300 PO; -NUTR1LIQ PO; -RBTDMUDC5 PO; +SENN1TAB86 PO; +TRAM-10 PO; -VANC1SUS PO; -VNTHFA/IN INH
--- NOTE | 2018-03-08 08:15 | CODING QUERY NO DIAGNOSIS ---
1932 TREATMENT RENDERED WITHOUT A DIAGNOSIS To promote full compliance with coding requirements relating to patient care, physician participation is requested in all cases of healthcare administration intern uncertainty. Please assist us with providing a diagnosis/symptom for the test(s) below: A diagnosis/symptom was not documented on your Order. A valid diagnosis/symptom is required to bill all insurances. Please remember that we are unable to code a diagnosis of rule out, probable, possible, questionable, or suspected. Tests that require a diagnosis: DOS 02/25/18 * UA CATH CULTURE IF INDICATED DIAGNOSIS: * URINE CATH CULTURE DIAGNOSIS: Provider Signature: Date: Thank you WILSON Cullen, [facility] Health Information Management Once completed, please kindly fax back to [phone] For questions please call [phone]
== END | disposition home or self-care (01) ==
LOC: C.LABSPEC 15:24
PROVIDERS: ATTEND Internal Medicine
DX: N39.0 Urinary tract infection, site not specified (principal)